=== PATIENT | male | born 1985 | race Caucasian/White ===

== ENCOUNTER 2020-07-25 18:33 | Emergency (ER) | payer MEDICARE, MEDICAID, SELFPAY ==
[2020-07-25 18:35] VITALS: BP 126/88; PULSE 68; RESP 16; TEMP 36.6; O2SAT 98; BMI 16.1
== END 2020-07-25 20:17 | disposition left against medical advice (07) ==
PROVIDERS: Emergency Provider Emergency Medicine; PCP Internal Medicine Pulmonary Disease
DX: R51.9 Headache, unspecified (principal)
CPT/HCPCS: 99282

== ENCOUNTER 2024-10-08 13:41 | Inpatient (IN) | payer MEDICARE, MEDICAID, SELFPAY ==
--- NOTE | ~2024-10-08 | US_ITS ---
CLINICAL HISTORY: RUQ tenderness US abdomen limited Comparison: None Findings: Evaluation was limited secondary to patient positioning and overlying bowel gas. The visualized pancreas is normal. The visualized IVC is unremarkable. The liver is normal in size and echotexture. There is no intrahepatic bile duct dilatation. The common duct is three mm in diameter. The gallbladder is poorly distended. There are no shadowing gallstones. The sonographic Holloway's sign was negative. The main portal vein is antegrade. The right kidney is 10.3 cm in length. No ascites. IMPRESSION: Unremarkable abdominal ultrasound. Limited evaluation. This document has been electronically signed by: Iza Rey MD on 10/08/2024 18:04:25
[2024-10-08 14:00] VITALS: BP 124/76; BP 127/71; PULSE 73; PULSE 80; RESP 19; TEMP 36.7; O2SAT 98; BMI 15.9
--- NOTE | 2024-10-08 14:27 | ED_ITS ---
HPI - General Adult General Chief complaint: Failure to Thrive Stated complaint: sec 12, not eating or drinking, no SI/HI Time Seen by Provider: 10/08/24 14:26 History of Present Illness ED Provider: Virginia JOYNER narrative: the patient is a 38-year-old male who I believe has chronic mental illness. He says he lives alone in his own apartment. He goes to the [employer] day program. Apparently staff at the day program today were concerned that the patient seemed to be losing a lot of weight and doing poorly. They ultimately called an ambulance and he was brought here for an evaluation for failure to thrive. The patient says that he has been eating less recently and has been losing weight. He says that his neighbor has lymphoma and he finds this depressing. Additionally his brother has stopped visiting him and he finds that distressing as well. He denies suicidality. He denies fever, sweats, chills. Related Data Home Medications ?Medication ?Instructions ?Recorded ?Confirmed No Known Home Meds 10/08/24 10/08/24 Allergies Allergy/AdvReac Type Severity Reaction Status Date / Time aripiprazole [From ABILIFY] Allergy Severe TONGUE Verified 10/08/24 14:03 SWELLS, NAUSEA/VOMITING olanzapine [From ZYPREXA] AdvReac Unknown INVOLUNTARY Verified 10/08/24 14:03 SPASMS From ZOLOFT AdvReac Unknown KEY Uncoded 10/08/24 14:03 Review of Systems 2 Review of Systems: Yes all other systems are reviewed and are negative PMFSH Past Medical History Medical History (Updated 10/08/24 @ 19:02 by Froylan Coleman MD) Schizoaffective disorder Bipolar 1 disorder Anxiety Social History Social History Smoked in Last 30 Days: No Use of substances other than those prescribed or required for medical reasons: No Advance Directives: No Advance Directives Information Provided: Yes Do you have a plan to hurt others: No Plan Physical Exam ED Vital Signs: Vital Signs - 24 hr 10/08/24 18:31 10/09/24 05:49 10/09/24 13:09 Temperature 97.6 F 98.3 F Pulse Rate 54 63 Respiratory Rate 14 16 18 Blood Pressure 100/53 L 126/76 Pulse Oximetry 98 99 Oxygen Delivery Method Room Air Room Air BMI result Body Mass Index 15.9 Const Other: The patient is a very thin 38-year-old male. He is awake and alert. He seems to have some degree of psychomotor retardation. He answers questions very slowly and with a slight delay. He has a flat affect. He does not seem in acute distress. HENMT Other: The patient is cheeks are sunken. However his face is symmetrical and his mucous membranes are moist. Eyes General: appearance normal, both eyes and all related structures Conjunctivae: conjunctivae normal Sclerae: sclerae normal Pupils: Equal, round and reactive pupils present EOM: EOMs intact bilaterally Neck Neck: Yes normal visual inspection, Yes full ROM and Yes no lymphadenopathy Resp Effort & Inspection: normal respiratory effort Auscultation: clear to auscultation bilaterally Cardio Rate: regular rate Rhythm: regular rhythm Heart sounds: S1 normal heart sound present and S2 normal heart sound present GI Other: Abdomen is soft and nontender Skin Other: skin is pale and dry. Neuro Other: The patient is awake and alert. He answers questions slowly but appropriately. He seems to have some psychomotor delay when speaking. cranial nerves 2-12 are intact. He moves his extremities normally and appropriately with normal strength and sensation and coordination in all of his extremities. He seems neurologically intact although he has a flat affect and some degree of delay in speaking. Cranial nerves: Yes Equal, round and reactive pupils present Extrem Other: No peripheral edema Psych Appearance: disheveled Mental Status: mental status grossly normal Speech and movement: Slowed movement present (Neuro) Affect: Blunted affect present Attitude: Guarded attititude/behavior present Course Reevaluation(s) Reevaluation #1: 10/09/2024 Dr. Caldwell 09:20 am stable overnight no event reported vital signs normal continue bed search Time: 09:21 Medications Administered Discontinued Medications Generic Name Dose Route Start Last Admin Trade Name Lowq PRN Reason Stop Dose Admin Ondansetron HCl 4 mg 10/08/24 16:21 10/08/24 16:27 Ondansetron Odt 4 Mg Tab.Unadis TRANSLINGU 10/08/24 16:22 4 mg ONCE ONE Administration Trazodone HCl 50 mg 10/08/24 19:52 10/08/24 19:55 Trazodone Hcl 50 Mg Tablet PO 10/08/24 19:53 50 mg ONCE ONE Administration Medical Decision Making Medical Decision Making [facility] Narrative: The patient is a 38-year-old male who I believe has chronic mental illness who has been eating very little recently and has lost weight. He has been seen as an outpatient by [facility] and he has been judged to be in his sufficient psychiatric crisis to warrant hospitalization. recent stressors include a neighbor who has lymphoma and the fact that his brother has not been visiting him. He acknowledges feeling depressed and is agreeable to the prospect of being hospitalized. the patient's medical workup suggest that he is mildly dehydrated but otherwise stable. The patient declined IV fluids. At this point I think that he is sufficiently medically stable that he can be placed in the psychiatric pod and await disposition by the CARE team. The patient is medically clear for psychiatric disposition. He will therefore be placed in physician observation as of 19:00 today. patient is voluntarily being admitted at this time, 18:24. Diagnosis, depression, SI Lab Data 10/08/24 14:50 10/08/24 14:50 Labs: Lab Results 10/08/24 10/09/24 Range/Units 14:50 09:25 WBC 7.9 (4.8-10.8) X10*3/uL RBC 4.26 L (4.60-5.80) X10*6/uL Hgb 13.3 L (14.0-18.0) g/dl Hct 37.7 L (42.0-52.0) % MCV 88.5 (80.0-98.0) fL MCH 31.2 (27.0-33.0) pg MCHC 35.3 (31.0-36.0) g/dl RDW 11.9 (11.0-16.0) % Plt Count 288 (160-400) X10*3/uL MPV 10.5 (9.4-12.4) fL Immature Gran % (Auto) 0.3 (0.0-0.4) % Neut % (Auto) 69.8 (45-73) % Lymph % (Auto) 18.3 L (20-40) % [place] % (Auto) 9.9 (2-11) % Eos % (Auto) 0.9 (0-4) % Baso % (Auto) 0.8 (0-2) % Lymph # (Auto) 1.4 (1.2-4.9) X10*3/uL [place] # (Auto) 0.8 (0.1-1.2) X10*3/uL Eos # (Auto) 0.1 (0.0-0.4) X10*3/uL Baso # (Auto) 0.1 (0.0-0.2) X10*3/uL Abs Immat Gran (auto) 0.02 (0.00-0.03) X10*3/uL Absolute Neuts (auto) 5.5 (2.0-8.3) x10*3/uL Absolute Nucleated RBC 0.000 (0.0-0.012) X10*3/uL Nucleated RBC % (auto) 0.0 (0.0-0.2) /100WBC Hold Purple Top SEE NOTE PT 11.7 (10.9-12.4) SEC INR 1.0 (0.9-1.1) Sodium 141 (135-145) mmol/L Potassium 4.0 (3.3-5.1) mmol/L Chloride 109 H (96-108) mmol/L Carbon Dioxide 24 (22-29) mmol/L Anion Gap 12 (12-20) BUN 22 H (9-16) mg/dL Creatinine 0.88 (0.5-1.4) mg/dL Estim Creat Clear Calc 71.9 Estimated GFR > 60 Random Glucose 89 (60-115) mg/dL Calcium 9.0 (8.4-10.2) mg/dL Magnesium 2.1 (1.6-2.6) mg/dL Total Bilirubin 0.2 (0.0-1.0) mg/dL Direct Bilirubin < 0.2 (0.0-0.5) mg/dL AST 35 (5-37) U/L ALT 25 (0-40) U/L Alkaline Phosphatase 60 (39-117) U/L Total Protein 7.0 (6.5-8.0) g/dL Albumin 4.1 (3.5-5.0) g/dL Urine Color Yellow Urine Appearance Turbid Urine pH 7.5 (5.0-9.0) Ur Specific [place] >= 1.030 H (1.005-1.025) Urine Protein 30 (1+) H (Neg-Trace) mg/dL Urine Glucose (UA) Negative (Negative) mg/dL Urine Ketones Trace (Negative) mg/dL Urine Blood Negative (Negative) Urine Nitrite Negative (Negative) Ur Leukocyte Esterase Negative (Negative) Urine RBC 0-2 (0-2) /HPF Urine WBC 0-5 (0-5) /HPF Ur Squamous Epith Cells 0-2 (0-2) /HPF Urine Bacteria None Seen (None Seen) Hyaline Casts 0-2 (0-2) /LPF Urine Opiates Screen Not Detected (Not Detect) Ur Buprenorphine Scrn Not Detected (Not Detect) ng/mL Ur Oxycodone Screen Not Detected (Not Detect) ng/mL Urine Methadone Screen Not Detected (Not Detect) ng/mL Urine Fentanyl Screen Not Detected (Not Detect) Ur Barbiturates Screen Not Detected (Not Detect) Ur Phencyclidine Scrn Not Detected (Not Detect) Ur Amphetamines Screen Not Detected (Not Detect) U Benzodiazepines Scrn Not Detected (Not Detect) Urine Cocaine Screen Not Detected (Not Detect) U Marijuana (THC) Screen Not Detected (Not Detect) Ethyl Alcohol < 10 mg/dL COVID-19 (KAITLYN) Negative (Negative) COVID-19 Clin Com See Note Discharge Plan Discharge Clinical Impression: Depression, Weight loss Patient Disposition: Admitted As Inpatient Prescriptions: No Action No Known Home Meds Print Language: Turkish
[2024-10-08 14:59] LABS: Appearance Urine Turbid; Color Urine Yellow; Glucose Urine UA Negative (Negative); Leukocyte Esterase Urine Negative (Negative); Nitrite Urine Negative (Negative); PH 7.5 (5.0-9.0); Specific Gravity - Urine >= 1.030 (1.005-1.025); UMIC TRIGGER UACC YES; Urine Blood Negative (Negative); Urine Ketones Trace mg/dL (Negative); Urine Protein 30 (1+) mg/dL (Neg-Trace)
[2024-10-08 15:02] LABS: Bacteria Urine None Seen (None Seen); Hyaline Casts Urine 0-2 /LPF (0-2); RBC Urine 0-2 /HPF (0-2); Squamous Epithelial Cell Urine 0-2 /HPF (0-2); WBC Urine 0-5 /HPF (0-5)
[2024-10-08 15:08] LABS: Amphetamine Screen Urine Not Detected (Not Detect); Barbiturates, Urine Not Detected (Not Detect); Benzodiazepines Screen Urine Not Detected (Not Detect); Buprenorphine Scr Not Detected (Not Detect); Cannabinoid Screen Urine Not Detected (Not Detect); Cocaine Screen Urine Not Detected (Not Detect); Fentanyl, urine Not Detected (Not Detect); Methadone Screen, Urine Not Detected (Not Detect); Opiate Screen Urine Not Detected (Not Detect); Oxycodone Screen Urine Not Detected (Not Detect); Phencyclidine Screen Urine Not Detected (Not Detect)
[2024-10-08 15:18] LABS: Alanine Aminotransferase 25 U/L (0-40); Albumin Level 4.1 g/dL (3.5-5.0); Anion Gap 12 (12-20); Aspartate Amino Transferase 35 U/L (5-37); Bilirubin Direct < 0.2 mg/dL (0.0-0.5); Bilirubin Total 0.2 mg/dL (0.0-1.0); Blood Urea Nitrogen 22 mg/dL (9-16); Carbon Dioxide 24 mmol/L (22-29); Chloride 109 mmol/L (96-108); Creatinine Clr Calc Pharmacy 71.9; Estimated Glomerular Filt Rate > 60; Ethanol < 10 mg/dL; Glucose Random 89 mg/dL (60-115); Magnesium 2.1 mg/dL (1.6-2.6); Sodium 141 mmol/L (135-145)
--- NOTE | 2024-10-08 16:00 | PC.NURSE ---
Pt refused IV. MD Galeano made aware. Pt states he will drink oral fluids to rehydrate. Pt takes sips of fluid/eats and then spits it out. MD Galeano at bedside- pt in agreement with IV fluids.
--- NOTE | 2024-10-08 16:10 | PC.NURSE ---
Pt originally in agreement with IV fluids. Attempted to obtain IV access and pt became anxious/grabbing at IV supplies. Pt unable to be redirected, stating he refuses the IV. MD Galeano aware and at bedside.
[2024-10-08 16:14] LABS: Alkaline Phosphatase 60 U/L (39-117)
[2024-10-08] MEDS: Ondansetron ODT 4 MG TAB.RAPDIS TRANSLINGU (16:27)
[2024-10-08 16:49] LABS: MANUAL DIFF FLAG NO
[2024-10-08 16:54] LABS: Basophils Absolute Auto 0.1 X10*3/uL (0.0-0.2); Basophils Percent Auto 0.8 % (0-2); Eosinophils Absolute Auto 0.1 X10*3/uL (0.0-0.4); Eosinophils Percent Auto 0.9 % (0-4); Hematocrit 37.7 % (42.0-52.0); Hemoglobin 13.3 g/dl (14.0-18.0); Imm Gran Abs Auto 0.02 X10*3/uL (0.00-0.03); Imm Gran Pct Auto 0.3 % (0.0-0.4); Lymphocytes Absolute Auto 1.4 X10*3/uL (1.2-4.9); Lymphocytes Percent Auto 18.3 % (20-40); Mean Corpuscular HGB Conc 35.3 g/dl (31.0-36.0); Mean Corpuscular Hemoglobin 31.2 pg (27.0-33.0); Mean Corpuscular Volume 88.5 fL (80.0-98.0); Mean Platelet Volume 10.5 fL (9.4-12.4); Monocytes Absolute Auto 0.8 X10*3/uL (0.1-1.2); Monocytes Percent Auto 9.9 % (2-11); Neutrophils Absolute Auto 5.5 x10*3/uL (2.0-8.3); Neutrophils Percent Auto 69.8 % (45-73); Platelet Count 288 X10*3/uL (160-400); Red Blood Count 4.26 X10*6/uL (4.60-5.80); Red Cell Distribution Width 11.9 % (11.0-16.0); White Blood Count 7.9 X10*3/uL (4.8-10.8)
--- NOTE | 2024-10-08 17:38 | PC.NURSE ---
Pt biba from home for failure to thrive, section 12 . Per pt, he has had poor PO intake x1 month and has lost approx 30 pounds. Pt a/ox3, calm/cooperative with staff and change management manager with security at bedside. Pt appears pale, skin cool to touch, bilateral cuts on top of wrists/hands. Pt slow to respond to questions, not answering questions fully- answers with one word answers. Respirations even and unlabored, no increased wob/sob noted, maintaining O2 sat >92%, denies cp/palpitations. Denies SI/HI/AH/VH. 1:1 sitter at bedside, resting in bed quietly, call gregory within reach.
[2024-10-08 18:03] VITALS: O2SAT 98
[2024-10-08 18:31] VITALS: RESP 14
--- NOTE | 2024-10-08 18:31 | PC.NURSE ---
RE; MED REC patient reports to this RN that he DOES NOT take any medications regularly
[2024-10-08] MEDS: traZODone HCL 50 MG TABLET PO (19:55)
--- NOTE | 2024-10-08 20:00 | PC.NURSE ---
PT acting bizarre and paranoid. Requesting drinks but then immediately dumping it out, taking hospital gown off stating my roommate has cancer so I cant wear this , pt also taking multiple trips to the bathroom and flushing several of times. Provider notified. Medications administered as per JUL. Plan of care ongoing
--- NOTE | 2024-10-08 23:57 | MHC.CARE ---
Joie from [facility] contacted the Care Team and reported that pt was evaluated in the community and found appropriate for IPLOC. She indicated that [facility] is [facility] and [facility] Ramon was sent and a copy was placed in his chart.
--- NOTE | 2024-10-09 | ECG_ITS ---
Test Reason : R/O PROLONGED QT Blood Pressure : */* mmHG Vent. Rate : 54 BPM Atrial Rate : 54 BPM P-R Int : 134 ms QRS Dur : 90 ms QT Int : 420 ms P-R-T Axes : 72 80 41 degrees QTcB Int : 398 ms Sinus bradycardia Otherwise normal ECG When compared with ECG of 18-Sep-2019 04:03, No significant change was found Referred By: Froylan Coleman Electronically Signed By: ALAN CLEMENTS MD
[2024-10-09 05:49] VITALS: BP 100/53; PULSE 54; RESP 16; TEMP 36.4; O2SAT 98
--- NOTE | 2024-10-09 06:28 | PC.NURSE ---
Patient was up whole night, no distress observed/reported, 15 minutes safety check, no behavior and safety concerns, disposition per care team is section 12 inpatient bed search, will continue to monitor
--- NOTE | 2024-10-09 07:43 | PC.NURSE ---
Assumed care of patient at 0645, patient appears to be in no apparent distress this am, wandering around BH pod, offering no complaints to this RN. Patient appears to be confused at times, unable to identify where he is or what he is doing. pt resting on chair in 7 at this time. Continue plan of care for IPLOC
[2024-10-09 09:39] LABS: Prothrombin Time 11.7 SEC (10.9-12.4)
[2024-10-09 09:45] LABS: IDNOW Serial# 58CA691E
[2024-10-09 09:46] LABS: COVID-19 Test Negative (Negative)
--- NOTE | 2024-10-09 09:46 | MHC.EDTECH ---
This tech provided toiletries/clothes/towels. Patient ambulated with steady gate to bathroom for a shower. All current needs met.
--- NOTE | 2024-10-09 12:02 | PHA.MEDREC ---
Addendum entered by Mahesh Velez [facility] 10/09/24 13:21: MED REC CHECKED BY [facility] Original Note: Pharmacy Consult ? Medication Reconciliation Pharmacy reviewed med rec done but nursing. No Known Home Meds confirmed by nursing. Spoke with patient nurse in pod and she confirmed the patient told her he is not taking any medications at this time.
--- NOTE | 2024-10-09 12:56 | PC.NURSE ---
Pt picking at food on tray, pt did drink half of an Ensure drink this am. Currently eating bits and pieces of lunch
--- NOTE | 2024-10-09 13:02 | PC.NURSE ---
Patient ate 50% of lunch and drank two cups of gingerale as well as a few crackers
[2024-10-09 13:09] VITALS: BP 126/76; PULSE 63; RESP 18; TEMP 36.8; O2SAT 99
[2024-10-09] MEDS: hydrOXYzine HCL 25 MG TABLET PO (18:37)
--- NOTE | 2024-10-09 19:21 | PC.NURSE ---
upon arrival patient seems very disorganized, under dressed or naked and refusing q 5 minute redirets for him to keep clothes on.
--- NOTE | 2024-10-09 19:30 | PC.NURSE ---
reached out to admissions to notify them clients dc orders are missing elements. continuing to redirect client about wearing clothing in milieu.
[2024-10-09 23:22] VITALS: BP 118/77; PULSE 63; RESP 16; TEMP 36.7; O2SAT 96
[2024-10-10 00:33] VITALS: BMI 17.0
--- NOTE | 2024-10-10 00:39 | PC.ADMIT ---
Pt is a 38 yo male admitted to unit from ED POD assessed by the CARE Team. Arrived on unit at 2205 on 10/09/2024. Pt signed a CV. Pt denies etoh, tobacco use or substance use, utox is negative. Pt denies any hx or current medical issues. Pt was presenting with increasingly paranoid behaviors while attending his day program at [facility] yesterday. Pt was then extremely anxious, shaking and agitated, then hid in bathroom for most of day with lights off. Pt has [facility] services, they report pt has been medication non compliant for the last month and that he has lost 30 pounds d/t not eating r/t paranoia. Pt has been throwing out food believing its been poisoned. Per crisis eval, pt's brother reports pt's neighbors have stated pt is up all night screaming, yelling, hitting post and self-dialoguing. Per crisis eval, pt also had been agitated and verbally aggressive to neighbor who has cancer and believes the neighbors cancer will spread to him. Pt presents as emaciated and disheveled, dressed in hospital attire. Pt frequently disrobing his raciel top and redirected to stay dressed. Pt is disorganized and appears to be thought blocking and responding to internal stimuli. Pt will eat and then run in the bathroom, coughing. Pt asks several times to wash his hands and when redirected to use his bathroom, he asks, there is no where else can I wash my hands ? Provider aerospace control and warning systems, CAW notified of arrival and orders obtained. Placed on 15 minute safety checks. Pt reports he feels safe in hospital.
[2024-10-10] MEDS: LORazepam 1 MG TABLET PO (13:14)
[2024-10-10] MEDS: hydrOXYzine HCL 25 MG TABLET PO (13:46)
--- NOTE | 2024-10-10 13:47 | P.HPPS_ITS ---
HPI Date of Service: 10/10/24 Chief Complaint: Depression/ Failure to Thrive Sources of Information: patient interviewed, chart reviewed and crisis/core team assessment reviewed HPI Subjective Notes: [place] Warning and Conditional Voluntary Narrative: Patient is a 38-year-old male with history of schizoaffective d/o who presented [place] [facility] [place] d/t paranoid behaviors secondary to medication non-compliance. Per crisis report, patient was assessed by [facility] crisis due to presenting with paranoid behaviors at his day program. Patient was anxious, shaking and hiding in the bathroom with the lights off for most of the day. Patient has been noncompliant with his prescribed medications for almost a month and has been refusing and throwing out food for a month due to his paranoid delusions. Patient's brother reports that he has lost approximately 30lb in the last month. Patient has been verbally aggressive towards 1 neighbor and throwing toilet paper at the neighbor's door as the neighbors diagnosed with cancer and patient believes the neighbor will spread the cancer to him. denies SI/HI; He also denies experiencing any auditory or visual hallucinations. Patient's brother reports he stopped taking his medications about a month ago after losing his job. utox negative. During admission assessment, patient presents alert and oriented x3. Anxious but cooperative. Fidgeting in chair. Standing up multiple times to look outside of unit office door. Paranoid. Patient stated, [facility] came to my house. I don't know why they came. I'm not really taking my meds but I'll take them here. I had to throw them away because my whole apartment is dirty so I wasn't eating . Patient reports he is worried about getting cancer from his neighbor . Patient was observed continuously removing and putting back on surgical facemask during the interview. Patient reports he would like to be restarted on his medications. denies SI/HI/VH/AH. Past Psychiatric History: Psychiatrist through the [facility]. [facility] actuarial intern: Joel Castillo Day program: [facility] hx of meds: clozapine, risperidal, trazodone Medical Evaluation Reviewed: Yes [facility] Medical History (Updated 10/10/24 @ 16:07 by Devi Bates NP) Schizoaffective disorder Bipolar 1 disorder Anxiety Family History: Unknown Social History: Lives alone in an apartment. Single. No kids. Unemployed. Substance History: Denies any substance use. Utox negative. Trauma History: Unknown Diagnostics Vital Signs (24Hr): Vital Signs - 24 hr 10/09/24 23:22 Temperature 98.0 F Pulse Rate 63 Respiratory Rate 16 Blood Pressure 118/77 Pulse Oximetry 96 Oxygen Delivery Method Room Air BMI result Body Mass Index 17.0 Labs 10/08/24 14:50 10/08/24 14:50 Labs: Laboratory Results - last 48 hr 10/08/24 10/09/24 14:50 09:25 WBC 7.9 RBC 4.26 L Hgb 13.3 L Hct 37.7 L MCV 88.5 MCH 31.2 MCHC 35.3 RDW 11.9 Plt Count 288 MPV 10.5 Immature Gran % (Auto) 0.3 Neut % (Auto) 69.8 Lymph % (Auto) 18.3 L [place] % (Auto) 9.9 Eos % (Auto) 0.9 Baso % (Auto) 0.8 Lymph # (Auto) 1.4 [place] # (Auto) 0.8 Eos # (Auto) 0.1 Baso # (Auto) 0.1 Abs Immat Gran (auto) 0.02 Absolute Neuts (auto) 5.5 Absolute Nucleated RBC 0.000 Nucleated RBC % (auto) 0.0 Hold Purple Top SEE NOTE PT 11.7 INR 1.0 Sodium 141 Potassium 4.0 Chloride 109 H Carbon Dioxide 24 Anion Gap 12 BUN 22 H Creatinine 0.88 Estim Creat Clear Calc 71.9 Estimated GFR > 60 Random Glucose 89 Calcium 9.0 Magnesium 2.1 Total Bilirubin 0.2 Direct Bilirubin < 0.2 AST 35 ALT 25 Alkaline Phosphatase 60 Total Protein 7.0 Albumin 4.1 Urine Color Yellow Urine Appearance Turbid Urine pH 7.5 Ur Specific [place] >= 1.030 H Urine Protein 30 (1+) H Urine Glucose (UA) Negative Urine Ketones Trace Urine Blood Negative Urine Nitrite Negative Ur Leukocyte Esterase Negative Urine RBC 0-2 Urine WBC 0-5 Ur Squamous Epith Cells 0-2 Urine Bacteria None Seen Hyaline Casts 0-2 Urine Opiates Screen Not Detected Ur Buprenorphine Scrn Not Detected Ur Oxycodone Screen Not Detected Urine Methadone Screen Not Detected Urine Fentanyl Screen Not Detected Ur Barbiturates Screen Not Detected Ur Phencyclidine Scrn Not Detected Ur Amphetamines Screen Not Detected U Benzodiazepines Scrn Not Detected Urine Cocaine Screen Not Detected U Marijuana (THC) Screen Not Detected Ethyl Alcohol < 10 COVID-19 (KAITLYN) Negative COVID-19 Clin Com See Note Meds/Allergies Meds Home Medications ?Medication ?Instructions ?Recorded ?Confirmed ?Type B12 500 mcg PO DAILY 10/10/24 10/10/24 History gabapentin 100 mg capsule 100 mg PO DAILY PRN Anxiety 10/10/24 10/10/24 History hydroxyzine HCl 50 mg tablet 50 mg PO BEDTIME PRN Insomnia 10/10/24 10/10/24 History risperidone 4 mg tablet 4 mg PO DAILY 10/10/24 10/10/24 History thiamine HCl (vitamin B1) 100 mg 100 mg PO DAILY 10/10/24 10/10/24 History tablet Allergies Allergies Allergy/AdvReac Type Severity Reaction Status Date / Time aripiprazole [From ABILIFY] Allergy Severe TONGUE Verified 10/08/24 14:03 SWELLS, NAUSEA/VOMITING olanzapine [From ZYPREXA] AdvReac Unknown INVOLUNTARY Verified 10/08/24 14:03 SPASMS From ZOLOFT AdvReac Unknown KEY Uncoded 10/08/24 14:03 Mental Status Exam Mental Status Exam Patient Appearance: Disheveled Patient Orientation: Person, Place, Time and Situation Level of Consciousness: Awake and Alert Patient Behavior: Guarded, Cooperative, Restless and Anxious Mood Description: Anxious Affect Description: Anxious Ability to Follow Directions: Good Speech Pattern: Clear and Appropriate Hallucinations: None Delusions: Paranoid Ideation Thought Process: Goal Oriented Thought Content: positive for Goal Oriented Assessment & Plan Assessment & Plan (1) Schizoaffective disorder: Status: Acute Code(s): F25.9 - Schizoaffective disorder, unspecified Plan Patient is a 38-year-old male with history of schizophrenia who presented [place] [facility] [place] d/t paranoid behaviors secondary to medication non-compliance. Plan: CV 15 minute safety checks Continues home medications Restart clozapine 25mg PO daily with plan to increase obtain collateral dietitian consult encourage groups discharge planning Patient educated on: diagnosis and medication risk/benefits Reason for continued inpatient stay Substantial Risk for: med/psych decompensation Statement Statement: I have reviewed the history and physical and performed a pertinent examination on my patient. No changes have occurred unless specified. If the History and Physical was not performed prior to admission, the Hospitalist's service will be consulted for completing the admission physical. Time Spent With Patient Time: Total time managing care of this patient today _60___ minutes.
--- NOTE | 2024-10-10 15:07 | MHC.CLN ---
NUTRITION CONSULT FOR POOR PO AND WEIGHT LOSS. VISITED PATIENT IN ROOM. DID NOT EAT BREAKFAST OR LUNCH TODAY. REPORTED THAT HAD NOT BEEN EATING OR DRINKING MUCH PRIOR TO ADM AND HAS LOST WEIGHT. APPEARS MALNOURISHED WITH DEPLETION OF MUSCLE MASS NOTED IN TEMPLES AND CLAVICLE; DEPLETION OF BODY FAT NOTED IN RIBCAGE. REPORTED THAT HE RAN OUT OF FOOD AT HOME. ADVISED TO TRY TO EAT/DRINK SMALL AMOUNT AND BUILD UP APPETITE. WILLING TO TRY ENSURE TID. SUPPLEMENT PROVIDES 1050 KCALS, 60 G PROTEIN. ENCOURAGE INTAKE AT MEALS AND SNACKS ABLE.
[2024-10-10] MEDS: Thiamine HCL 100 MG TABLET PO (15:53)
[2024-10-10] MEDS: risperiDONE 2 MG TABLET 4 MG PO (15:53)
[2024-10-10 16:58] LABS: Ammonia 37 umol/L (13-55)
[2024-10-10 17:06] LABS: Anion Gap 12 (12-20); Blood Urea Nitrogen 25 mg/dL (9-16); Calcium 9.1 mg/dL (8.4-10.2); Carbon Dioxide 29 mmol/L (22-29); Chloride 101 mmol/L (96-108); Creatinine Clr Calc Pharmacy 93.8; Estimated Glomerular Filt Rate > 60; Glucose Random 81 mg/dL (60-115); Potassium 4.3 mmol/L (3.3-5.1); Sodium 138 mmol/L (135-145)
[2024-10-10 17:14] LABS: Cholesterol 161 mg/dL (<200); HDL Cholesterol 73 mg/dL (>40); LDL Cholesterol Calculated 46 mg/dL (<100); Magnesium 2.1 mg/dL (1.6-2.6); Triglycerides 214 mg/dL (<150)
[2024-10-10 17:29] LABS: Free T4 (Free Thyroxine) 0.82 ng/dL (0.71-1.85); Thyroid Stimulating Hormone 2.55 uIU/mL (0.32-4.0)
[2024-10-10 17:42] LABS: Folate 10.6 ng/mL (> or = 4.0); Vitamin B12 556 pg/mL (200-900)
[2024-10-10 20:00] VITALS: RESP 16
[2024-10-10] MEDS: cloZAPine 25 MG TABLET PO (20:55)
--- NOTE | 2024-10-11 07:25 | HO.PSYCHPN ---
Subjective Subjective Date of Service: 10/11/24 Reason For Visit: Depression/ Failure to Thrive Subjective Notes: Conditional Voluntary Interim History: Met with patient. Discussed with Nursing. Slept 8 hours. Bizarre behavior around food. Accepting clozapine. Declining 2nd Ativan dose. With handbook writer reports that he feels fine. Main concern is housing. Declined labs but reports he will get them in the morning. There is disorganized behavior around food for example opening as putting as on top of the trash can coming back later taking it away eating some then putting it back on the trash can. Medication Compliance: Intermittent Side effects from medications: No Attending Groups: No Review of Systems Acute medical concerns: No Review of Systems Review of Systems Unremarkable Mental Status Exam Mental Status Exam Patient Appearance: Disheveled Patient Orientation: Person, Place, Time and Situation Level of Consciousness: Awake and Alert Patient Behavior: Guarded, Cooperative, Restless, Anxious and Confused ( unusual behavior around food) Mood Description: Anxious Affect Description: Anxious Ability to Follow Directions: Good Speech Pattern: Clear and Appropriate Hallucinations: None Delusions: Paranoid Ideation Thought Process: Goal Oriented Thought Content: positive for Goal Oriented Diagnostics Vital Signs (24Hr): Vital Signs - 24 hr 10/10/24 20:00 Respiratory Rate 16 BMI result Body Mass Index 17.0 Labs 10/08/24 14:50 10/10/24 16:49 Labs: Laboratory Results - last 48 hr 10/09/24 10/10/24 09:25 16:49 PT 11.7 INR 1.0 Sodium 138 Potassium 4.3 Chloride 101 Carbon Dioxide 29 Anion Gap 12 BUN 25 H Creatinine 0.72 Estim Creat Clear Calc 93.8 Estimated GFR > 60 Random Glucose 81 Calcium 9.1 Magnesium 2.1 Ammonia 37 Triglycerides 214 H Cholesterol 161 LDL Cholesterol, Calc 46 HDL Cholesterol 73 Vitamin B12 556 Folate 10.6 TSH 2.55 Free T4 0.82 COVID-19 ([facility]) Negative COVID-19 Clin Com See Note Medications Medications Current Medications Acetaminophen (Acetaminophen 325 Mg Tablet) 650 mg PO Q6H PRN PRN Reason: Headache/Pain, Scale 1-10 Al Hydroxide/Mg Hydroxide (Magnesium Hydrox/Alum Hydrox 30 Ml Oral.Susp) 30 ml PO Q6H PRN PRN Reason: Heartburn/Nausea Chlorpromazine HCl (Chlorpromazine Hcl 25 Mg Tablet) 25 mg PO Q6H PRN PRN Reason: agitation Clozapine (Clozapine 25 Mg Tablet) 25 mg PO BEDTIME [facility] Last Admin: 10/10/24 20:55 Dose: 25 mg Cyanocobalamin (Cyanocobalamin (Vitamin B-12) 500 Mcg Tablet) 500 mcg PO DAILY [facility] Gabapentin (Gabapentin 100 Mg Capsule) 100 mg PO DAILY PRN PRN Reason: Anxiety Hydroxyzine HCl (Hydroxyzine Hcl 25 Mg Tablet) 25 mg PO Q6H PRN PRN Reason: mild anxiety Last Admin: 10/10/24 13:46 Dose: 25 mg Lorazepam (Lorazepam 1 Mg Tablet) 1 mg PO BID [facility] Last Admin: 10/10/24 21:01 Dose: Not Given Magnesium Hydroxide (Milk Of Magnesia 30 Ml Oral.Susp) 30 ml PO DAILY PRN PRN Reason: Constipation Multi-Ingred Cream/Lotion/Oil/Oint (Mineral Oil/Petrolatum,White 106 Gm Tube) 1 appl TOPICAL BID [facility]; Protocol Last Admin: 10/10/24 21:02 Dose: Not Given Nicotine Polacrilex (Nicotine Polacrilex 2 Mg Gum) 4 mg BUCCAL Q2H PRN PRN Reason: Nicotine Cravings Risperidone (Risperidone 2 Mg Tablet) 4 mg PO DAILY [facility] Last Admin: 10/10/24 15:53 Dose: 4 mg Thiamine HCl (Thiamine Hcl 100 Mg Tablet) 100 mg PO DAILY [facility] Last Admin: 10/10/24 15:53 Dose: 100 mg Trazodone HCl (Trazodone Hcl 50 Mg Tablet) 50 mg PO BEDTIME MRX1 PRN PRN Reason: Insomnia Allergies Allergies Allergy/AdvReac Type Severity Reaction Status Date / Time aripiprazole [From ABILIFY] Allergy Severe TONGUE Verified 10/08/24 14:03 SWELLS, NAUSEA/VOMITING olanzapine [From ZYPREXA] AdvReac Unknown INVOLUNTARY Verified 10/08/24 14:03 SPASMS From ZOLOFT AdvReac Unknown KEY Uncoded 10/08/24 14:03 Assessment & Plan Assessment & Plan (1) Schizoaffective disorder: Status: Acute Code(s): F25.9 - Schizoaffective disorder, unspecified Plan Patient is a 38-year-old male with history of schizophrenia who presented to [facility] [place] d/t paranoid behaviors secondary to medication non-compliance. Plan: CV 15 minute safety checks Continues home medications Restart clozapine 25mg PO daily with plan to increase obtain collateral dietitian consult encourage groups discharge planning 10/11/2024: No changes to current treatment plan. clozapine just restarted yesterday. Titrate clozapine as tolerated. Reports he will get lab work done tomorrow Reason for continued inpatient stay Substantial Risk for: inability to function Time Spent With Patient Time: Total time managing care of this patient today ____ minutes.
[2024-10-11 08:00] VITALS: BP 127/74; PULSE 60; TEMP 36.9; O2SAT 99
[2024-10-11] MEDS: Thiamine HCL 100 MG TABLET PO (09:37)
[2024-10-11] MEDS: Cyanocobalamin (Vitamin B-12) 500 MCG TABLET PO (09:37)
[2024-10-11] MEDS: risperiDONE 2 MG TABLET 4 MG PO (09:37)
[2024-10-11] MEDS: Mineral Oil/Petrolatum,White 106 GM Tube 1 APPL TOPICAL (10:04)
[2024-10-11] MEDS: Gabapentin 100 MG CAPSULE PO (18:38)
[2024-10-11 20:00] VITALS: BP 129/70; PULSE 82; RESP 14; TEMP 37.1; O2SAT 98
[2024-10-11] MEDS: cloZAPine 25 MG TABLET PO (21:05)
[2024-10-11] MEDS: LORazepam 1 MG TABLET PO (21:05)
[2024-10-12 07:40] VITALS: BP 115/76; PULSE 107; RESP 14; TEMP 36.4; O2SAT 93
[2024-10-12] MEDS: Thiamine HCL 100 MG TABLET PO (08:44)
[2024-10-12] MEDS: Mineral Oil/Petrolatum,White 106 GM Tube 1 APPL TOPICAL ×2 (08:47→22:05)
[2024-10-12] MEDS: risperiDONE 2 MG TABLET 4 MG PO (08:47)
[2024-10-12] MEDS: LORazepam 1 MG TABLET PO ×2 (08:51→21:19)
[2024-10-12] MEDS: Cyanocobalamin (Vitamin B-12) 500 MCG TABLET PO (08:51)
--- NOTE | 2024-10-12 13:23 | P.PNPSI_ITS ---
Subjective Subjective Date of Service: 10/12/24 Reason For Visit: Depression/ Failure to Thrive Subjective Notes: Conditional Voluntary Interim History: NOted to be removing a pill from his mouth yesterday. RN found part of a white tablet in the trash. Unclear if it was clozapine or ativan. Eating poorly per staff. Patient states he is eating OK and denies GI symptoms. Sleeping OK. Medication Compliance: Intermittent Side effects from medications: No Attending Groups: No Review of Systems Acute medical concerns: No Medical Review of Systems: unchanged Mental Status Exam Mental Status Exam Patient Appearance: Unkempt Level of Consciousness: Alert Patient Behavior: Appropriate Mood Description: Apathetic Affect Description: Constricted Patient Cognition Impaired: No Ability to Follow Directions: Fair Speech Pattern: Slurred Memory Description: Intact Hallucinations: None Delusions: Paranoid Ideation Thought Process: Slowed Thinking Thought Content: positive for Linear Depressive Symptoms: Increased Fatigue Judgement: Poor Diagnostics Vital Signs (24Hr): Vital Signs - 24 hr 10/11/24 20:00 10/12/24 07:40 Temperature 98.7 F 97.6 F Pulse Rate 82 107 H Respiratory Rate 14 14 Blood Pressure 129/70 115/76 Pulse Oximetry 98 93 Oxygen Delivery Method Room Air Room Air BMI result Body Mass Index 17.0 Labs 10/08/24 14:50 10/10/24 16:49 Labs: Laboratory Results - last 48 hr 10/10/24 16:49 Sodium 138 Potassium 4.3 Chloride 101 Carbon Dioxide 29 Anion Gap 12 BUN 25 H Creatinine 0.72 Estim Creat Clear Calc 93.8 Estimated GFR > 60 Random Glucose 81 Calcium 9.1 Magnesium 2.1 Ammonia 37 Triglycerides 214 H Cholesterol 161 LDL Cholesterol, Calc 46 HDL Cholesterol 73 Vitamin B12 556 Folate 10.6 TSH 2.55 Free T4 0.82 Medications Medications Current Medications Acetaminophen (Acetaminophen 325 Mg Tablet) 650 mg PO Q6H PRN PRN Reason: Headache/Pain, Scale 1-10 Al Hydroxide/Mg Hydroxide (Magnesium Hydrox/Alum Hydrox 30 Ml Oral.Susp) 30 ml PO Q6H PRN PRN Reason: Heartburn/Nausea Chlorpromazine HCl (Chlorpromazine Hcl 25 Mg Tablet) 25 mg PO Q6H PRN PRN Reason: agitation Clozapine (Clozapine 25 Mg Tablet) 25 mg PO BEDTIME [facility] Last Admin: 10/11/24 21:05 Dose: 25 mg Cyanocobalamin (Cyanocobalamin (Vitamin B-12) 500 Mcg Tablet) 500 mcg PO DAILY [facility] Last Admin: 10/12/24 08:51 Dose: 500 mcg Gabapentin (Gabapentin 100 Mg Capsule) 100 mg PO DAILY PRN PRN Reason: Anxiety Last Admin: 10/11/24 18:38 Dose: 100 mg Hydroxyzine HCl (Hydroxyzine Hcl 25 Mg Tablet) 25 mg PO Q6H PRN PRN Reason: mild anxiety Last Admin: 10/10/24 13:46 Dose: 25 mg Lorazepam (Lorazepam 1 Mg Tablet) 1 mg PO BID [facility] Last Admin: 10/12/24 08:51 Dose: 1 mg Magnesium Hydroxide (Milk Of Magnesia 30 Ml Oral.Susp) 30 ml PO DAILY PRN PRN Reason: Constipation Multi-Ingred Cream/Lotion/Oil/Oint (Mineral Oil/Petrolatum,White 106 Gm Tube) 1 appl TOPICAL BID [facility]; Protocol Last Admin: 10/12/24 08:47 Dose: 1 appl Nicotine Polacrilex (Nicotine Polacrilex 2 Mg Gum) 4 mg BUCCAL Q2H PRN PRN Reason: Nicotine Cravings Risperidone (Risperidone 2 Mg Tablet) 4 mg PO DAILY [facility] Last Admin: 10/12/24 08:47 Dose: 4 mg Thiamine HCl (Thiamine Hcl 100 Mg Tablet) 100 mg PO DAILY [facility] Last Admin: 10/12/24 08:44 Dose: 100 mg Trazodone HCl (Trazodone Hcl 50 Mg Tablet) 50 mg PO BEDTIME MRX1 PRN PRN Reason: Insomnia Allergies Allergies Allergy/AdvReac Type Severity Reaction Status Date / Time aripiprazole [From ABILIFY] Allergy Severe TONGUE Verified 10/08/24 14:03 SWELLS, NAUSEA/VOMITING olanzapine [From ZYPREXA] AdvReac Unknown INVOLUNTARY Verified 10/08/24 14:03 SPASMS From [facility]OLOFT AdvReac Unknown KEY Uncoded 10/08/24 14:03 Assessment & Plan Assessment & Plan (1) Schizoaffective disorder: Status: Acute Code(s): F25.9 - Schizoaffective disorder, unspecified Plan Patient is a 38-year-old male with history of schizophrenia who [place] [facility] [place]t paranoid behaviors secondary to medication non-compliance. Plan: CV 15 minute safety checks Continues home medications Restart clozapine 25mg PO daily with plan to increase obtain collateral dietitian consult encourage groups discharge planning 10/11/2024: No changes to current treatment plan. clozapine just restarted yesterday. Titrate clozapine as tolerated. Reports he will get lab work done tomorrow 10/12/24:Clozapine just started, check for cheeking Reason for continued inpatient stay Substantial Risk for: inability to function Time Spent With Patient Time: Total time managing care of this patient today ____ minutes.
[2024-10-12] MEDS: hydrOXYzine HCL 25 MG TABLET PO (13:59)
[2024-10-12] MEDS: Gabapentin 100 MG CAPSULE PO (18:32)
[2024-10-12] MEDS: cloZAPine 25 MG TABLET PO (21:19)
[2024-10-12 21:30] VITALS: BP 117/67; PULSE 103; RESP 18; TEMP 37.1; O2SAT 96
[2024-10-13 08:30] VITALS: BP 114/72; PULSE 98; RESP 16; TEMP 36.8; O2SAT 97
[2024-10-13] MEDS: LORazepam 1 MG TABLET PO ×2 (08:32→20:49)
[2024-10-13] MEDS: Thiamine HCL 100 MG TABLET PO (08:33)
[2024-10-13] MEDS: risperiDONE 2 MG TABLET 4 MG PO (08:33)
[2024-10-13] MEDS: Cyanocobalamin (Vitamin B-12) 500 MCG TABLET PO (08:33)
[2024-10-13] MEDS: Mineral Oil/Petrolatum,White 106 GM Tube 1 APPL TOPICAL ×2 (08:38→20:50)
--- NOTE | 2024-10-13 12:17 | P.PNPSI_ITS ---
Subjective Subjective Date of Service: 10/13/24 Reason For Visit: Depression/ Failure to Thrive Interim History: Pt willing to meet. Wears a face mask throughout our meeting. Team is doing mouth checks with meds and pt reports feeling supported by this. Tolerating Clozaril. Asks several questions regarding housing. Asks to go to respite. In further discussion pt talked of issues at his home, my neighbor has lymphoma and this is making me sick . So I can't be at home, it is dangerous Pt reports awareness that this is not contagious, however, I know I will get it if I stay there. Reports some SE from meds over the weekend- yawning , feeling sedate at times. Team notes some motor restlessness. Denies current SE. Denies SI,HI, AH,VH. Medication Compliance: Yes Side effects from medications: No Attending Groups: No Review of Systems Acute medical concerns: No Medical Review of Systems: unchanged Review of Systems Review of Systems Believes he will develop cancer if he goes home as neighbor has cancer Mental Status Exam Mental Status Exam Patient Appearance: Fatigued Patient Orientation: Person, Place and Situation Level of Consciousness: Alert Patient Behavior: Talkative and Good Eye Contact Mood Description: Withdrawn and Constricted Affect Description: Withdrawn and Constricted Patient Cognition Impaired: No Ability to Follow Directions: Good Speech Pattern: Spontaneous Speech Memory Description: Episodic Impaired Hallucinations: None Delusions: Paranoid Ideation and Present Thought Process: Distracted and Rumination Thought Content: positive for Circumstantial, positive for Perseveration, positive for Suicidal Ideation (denies) and positive for Homicidal Ideation (denies) Depressive Symptoms: Increased Anxiety and Difficulty Concentrating Judgement: Poor Diagnostics Vital Signs (24Hr): Vital Signs - 24 hr 10/12/24 21:30 10/13/24 08:30 Temperature 98.7 F 98.2 F Pulse Rate 103 H 98 Respiratory Rate 18 16 Blood Pressure 117/67 114/72 Pulse Oximetry 96 97 Oxygen Delivery Method Room Air Room Air BMI result Body Mass Index 17.0 Labs 10/08/24 14:50 10/10/24 16:49 Medications Medications Current Medications Acetaminophen (Acetaminophen 325 Mg Tablet) 650 mg PO Q6H PRN PRN Reason: Headache/Pain, Scale 1-10 Al Hydroxide/Mg Hydroxide (Magnesium Hydrox/Alum Hydrox 30 Ml Oral.Susp) 30 ml PO Q6H PRN PRN Reason: Heartburn/Nausea Chlorpromazine HCl (Chlorpromazine Hcl 25 Mg Tablet) 25 mg PO Q6H PRN PRN Reason: agitation Clozapine (Clozapine 25 Mg Tablet) 25 mg PO BEDTIME [facility] Last Admin: 10/12/24 21:19 Dose: 25 mg Cyanocobalamin (Cyanocobalamin (Vitamin B-12) 500 Mcg Tablet) 500 mcg PO DAILY [facility] Last Admin: 10/13/24 08:33 Dose: 500 mcg Gabapentin (Gabapentin 100 Mg Capsule) 100 mg PO DAILY PRN PRN Reason: Anxiety Last Admin: 10/12/24 18:32 Dose: 100 mg Hydroxyzine HCl (Hydroxyzine Hcl 25 Mg Tablet) 25 mg PO Q6H PRN PRN Reason: mild anxiety Last Admin: 10/12/24 13:59 Dose: 25 mg Lorazepam (Lorazepam 1 Mg Tablet) 1 mg PO BID [facility] Last Admin: 10/13/24 08:32 Dose: 1 mg Magnesium Hydroxide (Milk Of Magnesia 30 Ml Oral.Susp) 30 ml PO DAILY PRN PRN Reason: Constipation Multi-Ingred Cream/Lotion/Oil/Oint (Mineral Oil/Petrolatum,White 106 Gm Tube) 1 appl TOPICAL BID [facility]; Protocol Last Admin: 10/13/24 08:38 Dose: 1 appl Nicotine Polacrilex (Nicotine Polacrilex 2 Mg Gum) 4 mg BUCCAL Q2H PRN PRN Reason: Nicotine Cravings Risperidone (Risperidone 2 Mg Tablet) 4 mg PO DAILY [facility] Last Admin: 10/13/24 08:33 Dose: 4 mg Thiamine HCl (Thiamine Hcl 100 Mg Tablet) 100 mg PO DAILY [facility] Last Admin: 10/13/24 08:33 Dose: 100 mg Trazodone HCl (Trazodone Hcl 50 Mg Tablet) 50 mg PO BEDTIME MRX1 PRN PRN Reason: Insomnia Allergies Allergies Allergy/AdvReac Type Severity Reaction Status Date / Time aripiprazole [From ABILIFY] Allergy Severe TONGUE Verified 10/08/24 14:03 SWELLS, NAUSEA/VOMITING olanzapine [From ZYPREXA] AdvReac Unknown INVOLUNTARY Verified 10/08/24 14:03 SPASMS From [facility] AdvReac Unknown KEY Uncoded 10/08/24 14:03 Assessment & Plan Assessment & Plan (1) Schizoaffective disorder: Status: Acute Code(s): F25.9 - Schizoaffective disorder, unspecified Plan Patient is a 38-year-old male with history of schizophrenia who presented to [facility] [place] d/t paranoid behaviors secondary to medication non-compliance. Plan: CV 15 minute safety checks Continues home medications Restart clozapine 25mg PO daily with plan to increase obtain collateral dietitian consult encourage groups discharge planning 10/11/2024: No changes to current treatment plan. clozapine just restarted yesterday. Titrate clozapine as tolerated. Reports he will get lab work done tomorrow 10/12/24:Clozapine just started, check for cheeking 10/13: Increase Clozapine to 50 mg HS Patient educated on: medication risk/benefits and therapeutic strategies Reason for continued inpatient stay Substantial Risk for: rapid decompensation Time Spent With Patient Time: Total time managing care of this patient today ____ minutes.
[2024-10-13] MEDS: Gabapentin 100 MG CAPSULE PO (14:51)
[2024-10-13] MEDS: hydrOXYzine HCL 25 MG TABLET PO (14:52)
[2024-10-13 20:00] VITALS: RESP 18
[2024-10-13 20:13] LABS: MANUAL DIFF FLAG NO
[2024-10-13 20:16] LABS: Basophils Absolute Auto 0.1 X10*3/uL (0.0-0.2); Basophils Percent Auto 0.7 % (0-2); Eosinophils Absolute Auto 0.1 X10*3/uL (0.0-0.4); Hematocrit 37.4 % (42.0-52.0); Imm Gran Abs Auto 0.03 X10*3/uL (0.00-0.03); Imm Gran Pct Auto 0.4 % (0.0-0.4); Lymphocytes Absolute Auto 2.2 X10*3/uL (1.2-4.9); Lymphocytes Percent Auto 30.9 % (20-40); Mean Corpuscular HGB Conc 34.8 g/dl (31.0-36.0); Mean Corpuscular Hemoglobin 31.6 pg (27.0-33.0); Mean Corpuscular Volume 90.8 fL (80.0-98.0); Mean Platelet Volume 9.9 fL (9.4-12.4); Monocytes Absolute Auto 0.6 X10*3/uL (0.1-1.2); Monocytes Percent Auto 7.9 % (2-11); Neutrophils Absolute Auto 4.1 x10*3/uL (2.0-8.3); Neutrophils Percent Auto 58.1 % (45-73); Platelet Count 265 X10*3/uL (160-400); Red Blood Count 4.12 X10*6/uL (4.60-5.80); Red Cell Distribution Width 11.9 % (11.0-16.0)
[2024-10-13] MEDS: cloZAPine 25 MG TABLET 50 MG PO (20:49)
[2024-10-14 06:08] LABS: Estimated Average Glucose 108 mg/dL; Hemoglobin A1C 126.1562 umol/L; Hemoglobin A1c % 5.4 % (<6.0); Total Hemoglobin (HGBA1C) 3539.4351 umol/L
[2024-10-14 07:50] VITALS: BP 120/72; PULSE 97; RESP 16; TEMP 36.7; O2SAT 97
[2024-10-14] MEDS: Thiamine HCL 100 MG TABLET PO (08:31)
[2024-10-14] MEDS: risperiDONE 2 MG TABLET 4 MG PO (08:32)
[2024-10-14] MEDS: Cyanocobalamin (Vitamin B-12) 500 MCG TABLET PO (08:32)
[2024-10-14] MEDS: Mineral Oil/Petrolatum,White 106 GM Tube 1 APPL TOPICAL (08:32)
[2024-10-14] MEDS: LORazepam 1 MG TABLET PO ×2 (08:32→20:20)
--- NOTE | 2024-10-14 09:52 | HO.PSYCHPN ---
Subjective Subjective Date of Service: 10/14/24 Reason For Visit: Depression/ Failure to Thrive Subjective Notes: Conditional Voluntary Healthcare Proxy: No Guardianship: No Medical Problems Affecting Mental Status: No Interim History: Would you call [employer] on [address]? I have a year lease that expires in May. They need to tell me if it is safe to go home. I am afraid I will catch cancer if my neighbor is still there. Team report pt is spitting in the milieu, refuses hand washing, intolerant to redirective efforts- kitchen restriction placed. Reports excess salivation. Tolerating Clozapine increase. Does report some difficulty with speech when he first awakens, but that was there before I came in here. Also reports nightmares. Discussed medicine changes. Medication Compliance: Yes Side effects from medications: Yes (??) Attending Groups: Intermittent Review of Systems as noted Review of Systems Review of Systems sialorrhea Mental Status Exam Mental Status Exam Patient Appearance: Appropriate Patient Orientation: Person, Place and Situation Level of Consciousness: Alert Patient Behavior: Talkative and Good Eye Contact Mood Description: Withdrawn and Constricted Affect Description: Withdrawn and Constricted Patient Cognition Impaired: No Ability to Follow Directions: Good Speech Pattern: Spontaneous Speech Memory Description: Episodic Impaired Hallucinations: None Delusions: Paranoid Ideation and Present Thought Process: Distracted and Rumination Thought Content: positive for Circumstantial, positive for Perseveration, positive for Preoccupation, positive for Loose Associations, positive for Suicidal Ideation (denies) and positive for Homicidal Ideation (denies) Depressive Symptoms: Increased Anxiety and Difficulty Concentrating Judgement: Poor Diagnostics Vital Signs (24Hr): Vital Signs - 24 hr 10/13/24 20:00 10/14/24 07:50 Temperature 98.0 F Pulse Rate 97 Respiratory Rate 18 16 Blood Pressure 120/72 Pulse Oximetry 97 Oxygen Delivery Method Room Air BMI result Body Mass Index 17.0 Labs 10/13/24 20:02 10/10/24 16:49 Labs: Laboratory Results - last 48 hr 10/13/24 20:02 WBC 7.0 RBC 4.12 L Hgb 13.0 L Hct 37.4 L MCV 90.8 MCH 31.6 MCHC 34.8 RDW 11.9 Plt Count 265 MPV 9.9 Immature Gran % (Auto) 0.4 Neut % (Auto) 58.1 Lymph % (Auto) 30.9 Mcmullen % (Auto) 7.9 Eos % (Auto) 2.0 Baso % (Auto) 0.7 Lymph # (Auto) 2.2 Mcmullen # (Auto) 0.6 Eos # (Auto) 0.1 Baso # (Auto) 0.1 Abs Immat Gran (auto) 0.03 Absolute Neuts (auto) 4.1 Absolute Nucleated RBC 0.000 Nucleated RBC % (auto) 0.0 Estimat Average Glucose 108 Hemoglobin A1c % 5.4 Medications Medications Current Medications Acetaminophen (Acetaminophen 325 Mg Tablet) 650 mg PO Q6H PRN PRN Reason: Headache/Pain, Scale 1-10 Al Hydroxide/Mg Hydroxide (Magnesium Hydrox/Alum Hydrox 30 Ml Oral.Susp) 30 ml PO Q6H PRN PRN Reason: Heartburn/Nausea Chlorpromazine HCl (Chlorpromazine Hcl 25 Mg Tablet) 25 mg PO Q6H PRN PRN Reason: agitation Clozapine (Clozapine 25 Mg Tablet) 50 mg PO BEDTIME [facility] Last Admin: 10/13/24 20:49 Dose: 50 mg Cyanocobalamin (Cyanocobalamin (Vitamin B-12) 500 Mcg Tablet) 500 mcg PO DAILY [facility] Last Admin: 10/14/24 08:32 Dose: 500 mcg Gabapentin (Gabapentin 100 Mg Capsule) 100 mg PO DAILY PRN PRN Reason: Anxiety Last Admin: 10/13/24 14:51 Dose: 100 mg Hydroxyzine HCl (Hydroxyzine Hcl 25 Mg Tablet) 25 mg PO Q6H PRN PRN Reason: mild anxiety Last Admin: 10/13/24 14:52 Dose: 25 mg Lorazepam (Lorazepam 1 Mg Tablet) 1 mg PO BID [facility] Last Admin: 10/14/24 08:32 Dose: 1 mg Magnesium Hydroxide (Milk Of Magnesia 30 Ml Oral.Susp) 30 ml PO DAILY PRN PRN Reason: Constipation Multi-Ingred Cream/Lotion/Oil/Oint (Mineral Oil/Petrolatum,White 106 Gm Tube) 1 appl TOPICAL BID [facility]; Protocol Last Admin: 10/14/24 08:32 Dose: 1 appl Nicotine Polacrilex (Nicotine Polacrilex 2 Mg Gum) 4 mg BUCCAL Q2H PRN PRN Reason: Nicotine Cravings Risperidone (Risperidone 2 Mg Tablet) 4 mg PO DAILY [facility] Last Admin: 10/14/24 08:32 Dose: 4 mg Thiamine HCl (Thiamine Hcl 100 Mg Tablet) 100 mg PO DAILY [facility] Last Admin: 10/14/24 08:31 Dose: 100 mg Trazodone HCl (Trazodone Hcl 50 Mg Tablet) 50 mg PO BEDTIME MRX1 PRN PRN Reason: Insomnia Allergies Allergies Allergy/AdvReac Type Severity Reaction Status Date / Time aripiprazole [From ABILIFY] Allergy Severe TONGUE Verified 10/08/24 14:03 SWELLS, NAUSEA/VOMITING olanzapine [From ZYPREXA] AdvReac Unknown INVOLUNTARY Verified 10/08/24 14:03 SPASMS From [facility] AdvReac Unknown KEY Uncoded 10/08/24 14:03 Assessment & Plan Assessment & Plan (1) Schizoaffective disorder: Status: Acute Code(s): F25.9 - Schizoaffective disorder, unspecified Plan Patient is a 38-year-old male with history of schizophrenia who presented to [facility] [place] d/t paranoid behaviors secondary to medication non-compliance. Plan: CV 15 minute safety checks Continues home medications Restart clozapine 25mg PO daily with plan to increase obtain collateral dietitian consult encourage groups discharge planning 10/11/2024: No changes to current treatment plan. clozapine just restarted yesterday. Titrate clozapine as tolerated. Reports he will get lab work done tomorrow 10/12/24:Clozapine just started, check for cheeking 10/13: Increase Clozapine to 50 mg HS 10/14: Prazosin 1 mg HS-trial for nightmare mgt. Glycopyrrolate 0.5 mg bid trial for sialorrhea/resulting spitting in milieu. Reason for continued inpatient stay Substantial Risk for: inability to function and rapid decompensation Time Spent With Patient Time: Total time managing care of this patient today ____ minutes.
[2024-10-14] MEDS: Gabapentin 100 MG CAPSULE PO (18:05)
[2024-10-14 20:00] VITALS: BP 135/84; PULSE 89; RESP 18; TEMP 36.5; O2SAT 98
[2024-10-14 20:20] VITALS: BP 135/84
[2024-10-14] MEDS: cloZAPine 25 MG TABLET 50 MG PO (20:20)
[2024-10-14] MEDS: Prazosin HCL 1 MG CAPSULE PO (20:20)
[2024-10-15] MEDS: hydrOXYzine HCL 25 MG TABLET PO (05:51)
[2024-10-15 08:00] VITALS: BP 123/70; PULSE 96; RESP 12; TEMP 37.1; O2SAT 97
[2024-10-15 08:18] LABS: Neut%MD 64.1 %; Neutrophils Absolute Auto 3.5 x10*3/uL (2.0-8.3); WBCANC 5.5 X10*3/uL
[2024-10-15] MEDS: LORazepam 1 MG TABLET PO ×2 (08:20→20:27)
[2024-10-15] MEDS: risperiDONE 2 MG TABLET 4 MG PO (08:20)
[2024-10-15] MEDS: Cyanocobalamin (Vitamin B-12) 500 MCG TABLET PO (08:20)
[2024-10-15] MEDS: Thiamine HCL 100 MG TABLET PO (08:20)
--- NOTE | 2024-10-15 11:55 | P.PNPSI_ITS ---
Subjective Subjective Date of Service: 10/15/24 Reason For Visit: Depression/ Failure to Thrive Subjective Notes: Conditional Voluntary Interim History: Active on unit, keeping to self. Guarded. Patient reports feeling okay today; pt states he is not really worried about my neighbor anymore. I'm thinking about moving at some point but I plan on going back to my apartment when I leave here . denies SI/HI/VH/AH. denies excess salivating today; discussed increasing clozaril, pt agreed. Clozaril increased to 75mg PO bedtime. Medication Compliance: Yes Side effects from medications: No Attending Groups: No Mental Status Exam Mental Status Exam Narrative: Pt is alert and oriented; behavior is cooperative, calm, guarded; dressed in casual attire; mood is described as okay ; eye contact appropriate; Speech is normal rate, volume and not pressured; thought process is organized; Thought content is on tx/discharge; denies SI/HI/VH/AH. Diagnostics Vital Signs (24Hr): Vital Signs - 24 hr 10/14/24 20:00 10/14/24 20:20 10/15/24 08:00 Temperature 97.7 F 98.8 F Pulse Rate 89 96 Respiratory Rate 18 12 Blood Pressure 135/84 135/84 123/70 Pulse Oximetry 98 97 Oxygen Delivery Method Room Air Room Air BMI result Body Mass Index 17.0 Labs 10/13/24 20:02 10/10/24 16:49 Labs: Laboratory Results - last 48 hr 10/13/24 10/15/24 20:02 07:52 WBC 7.0 RBC 4.12 L Hgb 13.0 L Hct 37.4 L MCV 90.8 MCH 31.6 MCHC 34.8 RDW 11.9 Plt Count 265 MPV 9.9 Immature Gran % (Auto) 0.4 Neut % (Auto) 58.1 Lymph % (Auto) 30.9 [place] % (Auto) 7.9 Eos % (Auto) 2.0 Baso % (Auto) 0.7 Lymph # (Auto) 2.2 [place] # (Auto) 0.6 Eos # (Auto) 0.1 Baso # (Auto) 0.1 Abs Immat Gran (auto) 0.03 Absolute Neuts (auto) 4.1 3.5 Absolute Nucleated RBC 0.000 Nucleated RBC % (auto) 0.0 Estimat Average Glucose 108 Hemoglobin A1c % 5.4 Medications Medications Current Medications Acetaminophen (Acetaminophen 325 Mg Tablet) 650 mg PO Q6H PRN PRN Reason: Headache/Pain, Scale 1-10 Al Hydroxide/Mg Hydroxide (Magnesium Hydrox/Alum Hydrox 30 Ml Oral.Susp) 30 ml PO Q6H PRN PRN Reason: Heartburn/Nausea Chlorpromazine HCl (Chlorpromazine Hcl 25 Mg Tablet) 25 mg PO Q6H PRN PRN Reason: agitation Clozapine (Clozapine 25 Mg Tablet) 50 mg PO BEDTIME [facility] Last Admin: 10/14/24 20:20 Dose: 50 mg Cyanocobalamin (Cyanocobalamin (Vitamin B-12) 500 Mcg Tablet) 500 mcg PO DAILY [facility] Last Admin: 10/15/24 08:20 Dose: 500 mcg Gabapentin (Gabapentin 100 Mg Capsule) 100 mg PO DAILY PRN PRN Reason: Anxiety Last Admin: 10/14/24 18:05 Dose: 100 mg Glycopyrrolate (Glycopyrrolate 1 Mg Tablet) 0.5 mg PO BID [facility] Last Admin: 10/15/24 08:22 Dose: Not Given Hydroxyzine HCl (Hydroxyzine Hcl 25 Mg Tablet) 25 mg PO Q6H PRN PRN Reason: mild anxiety Last Admin: 10/15/24 05:51 Dose: 25 mg Lorazepam (Lorazepam 1 Mg Tablet) 1 mg PO BID [facility] Last Admin: 10/15/24 08:20 Dose: 1 mg Magnesium Hydroxide (Milk Of Magnesia 30 Ml Oral.Susp) 30 ml PO DAILY PRN PRN Reason: Constipation Multi-Ingred Cream/Lotion/Oil/Oint (Mineral Oil/Petrolatum,White 106 Gm Tube) 1 appl TOPICAL BID [facility]; Protocol Last Admin: 10/15/24 08:24 Dose: Not Given Nicotine Polacrilex (Nicotine Polacrilex 2 Mg Gum) 4 mg BUCCAL Q2H PRN PRN Reason: Nicotine Cravings Prazosin HCl (Prazosin Hcl 1 Mg Capsule) 1 mg PO BEDTIME [facility]; Protocol Last Admin: 10/14/24 20:20 Dose: 1 mg Risperidone (Risperidone 2 Mg Tablet) 4 mg PO DAILY [facility] Last Admin: 10/15/24 08:20 Dose: 4 mg Thiamine HCl (Thiamine Hcl 100 Mg Tablet) 100 mg PO DAILY [facility] Last Admin: 10/15/24 08:20 Dose: 100 mg Trazodone HCl (Trazodone Hcl 50 Mg Tablet) 50 mg PO BEDTIME MRX1 PRN PRN Reason: Insomnia Allergies Allergies Allergy/AdvReac Type Severity Reaction Status Date / Time aripiprazole [From ABILIFY] Allergy Severe TONGUE Verified 10/08/24 14:03 SWELLS, NAUSEA/VOMITING olanzapine [From ZYPREXA] AdvReac Unknown INVOLUNTARY Verified 10/08/24 14:03 SPASMS From ZOLOFT AdvReac Unknown KEY Uncoded 10/08/24 14:03 Assessment & Plan Assessment & Plan (1) Schizoaffective disorder: Status: Acute Code(s): F25.9 - Schizoaffective disorder, unspecified Plan Patient is a 38-year-old male with history of schizophrenia who presented to [facility] ER d/t paranoid behaviors secondary to medication non-compliance. Plan: CV 15 minute safety checks Continues home medications Restart clozapine 25mg PO daily with plan to increase obtain collateral dietitian consult encourage groups discharge planning 10/11/2024: No changes to current treatment plan. clozapine just restarted yesterday. Titrate clozapine as tolerated. Reports he will get lab work done tomorrow 10/12/24:Clozapine just started, check for cheeking 10/13: Increase Clozapine to 50 mg HS 10/14: Prazosin 1 mg HS-trial for nightmare mgt. Glycopyrrolate 0.5 mg bid trial for sialorrhea/resulting spitting in milieu. 10/15: Active on unit, keeping to self. Guarded. Patient reports feeling okay today; pt states he is not really worried about my neighbor anymore. I'm thinking about moving at some point but I plan on going back to my apartment when I leave here . denies SI/HI/VH/AH. denies excess salivating today; discussed increasing clozaril, pt agreed. Clozaril increased to 75mg PO bedtime. Patient educated on: diagnosis and medication risk/benefits Reason for continued inpatient stay Substantial Risk for: med/psych decompensation Time Spent With Patient Time: Total time managing care of this patient today _20___ minutes.
[2024-10-15] MEDS: Gabapentin 100 MG CAPSULE PO (18:04)
[2024-10-15 20:00] VITALS: BP 120/68; PULSE 112; RESP 16; TEMP 36.9; O2SAT 97
[2024-10-15] MEDS: cloZAPine 25 MG TABLET 75 MG PO (20:25)
[2024-10-15] MEDS: Prazosin HCL 1 MG CAPSULE PO (20:26)
[2024-10-15] MEDS: Glycopyrrolate 1 MG TABLET 0.5 MG PO (20:26)
[2024-10-16 07:00] VITALS: BMI 18.0
[2024-10-16 08:16] VITALS: BP 123/77; PULSE 127; RESP 14; TEMP 36.6; O2SAT 98
[2024-10-16] MEDS: Cyanocobalamin (Vitamin B-12) 500 MCG TABLET PO (08:17)
[2024-10-16] MEDS: risperiDONE 2 MG TABLET 4 MG PO (08:17)
[2024-10-16] MEDS: LORazepam 1 MG TABLET PO ×2 (08:17→20:30)
[2024-10-16] MEDS: Thiamine HCL 100 MG TABLET PO (08:17)
--- NOTE | 2024-10-16 13:38 | HO.PSYCHPN ---
Subjective Subjective Date of Service: 10/16/24 Reason For Visit: Depression/ Failure to Thrive Interim History: calm, cooperative. denies any issues with escalating doses of clozapine. agreeable to increase to 100 mg tonight after having received 75 mg last night. reports his target dose as 125 mg. per staff, c/o racing thoughts. taking meds aside from robinol. slept about 8 hours. Mental Status Exam Mental Status Exam Narrative: Pt is alert and oriented; behavior is cooperative, calm, guarded; dressed in casual attire; mood is described as okay ; eye contact appropriate; Speech is normal rate, volume and not pressured; thought process is organized; Thought content is on tx/discharge; denies SI/HI/VH/AH. Diagnostics Vital Signs (24Hr): Vital Signs - 24 hr 10/15/24 20:00 10/16/24 08:16 Temperature 98.4 F 97.8 F Pulse Rate 112 H 127 H Respiratory Rate 16 14 Blood Pressure 120/68 123/77 Pulse Oximetry 97 98 Oxygen Delivery Method Room Air Room Air BMI result Body Mass Index 18.0 Labs 10/13/24 20:02 10/10/24 16:49 Labs: Laboratory Results - last 48 hr 10/15/24 07:52 Absolute Neuts (auto) 3.5 Medications Medications Current Medications Acetaminophen (Acetaminophen 325 Mg Tablet) 650 mg PO Q6H PRN PRN Reason: Headache/Pain, Scale 1-10 Al Hydroxide/Mg Hydroxide (Magnesium Hydrox/Alum Hydrox 30 Ml Oral.Susp) 30 ml PO Q6H PRN PRN Reason: Heartburn/Nausea Chlorpromazine HCl (Chlorpromazine Hcl 25 Mg Tablet) 25 mg PO Q6H PRN PRN Reason: agitation Clozapine (Clozapine 100 Mg Tablet) 100 mg PO BEDTIME [facility] Cyanocobalamin (Cyanocobalamin (Vitamin B-12) 500 Mcg Tablet) 500 mcg PO DAILY [facility] Last Admin: 10/16/24 08:17 Dose: 500 mcg Gabapentin (Gabapentin 100 Mg Capsule) 100 mg PO DAILY PRN PRN Reason: Anxiety Last Admin: 10/15/24 18:04 Dose: 100 mg Glycopyrrolate (Glycopyrrolate 1 Mg Tablet) 0.5 mg PO BID [facility] Last Admin: 10/16/24 08:19 Dose: Not Given Hydroxyzine HCl (Hydroxyzine Hcl 25 Mg Tablet) 25 mg PO Q6H PRN PRN Reason: mild anxiety Last Admin: 10/15/24 05:51 Dose: 25 mg Lorazepam (Lorazepam 1 Mg Tablet) 1 mg PO BID [facility] Last Admin: 10/16/24 08:17 Dose: 1 mg Magnesium Hydroxide (Milk Of Magnesia 30 Ml Oral.Susp) 30 ml PO DAILY PRN PRN Reason: Constipation Multi-Ingred Cream/Lotion/Oil/Oint (Mineral Oil/Petrolatum,White 106 Gm Tube) 1 appl TOPICAL BID [facility]; Protocol Last Admin: 10/16/24 08:19 Dose: Not Given Nicotine Polacrilex (Nicotine Polacrilex 2 Mg Gum) 4 mg BUCCAL Q2H PRN PRN Reason: Nicotine Cravings Prazosin HCl (Prazosin Hcl 1 Mg Capsule) 1 mg PO BEDTIME [facility]; Protocol Last Admin: 10/15/24 20:26 Dose: 1 mg Risperidone (Risperidone 2 Mg Tablet) 4 mg PO DAILY [facility] Last Admin: 10/16/24 08:17 Dose: 4 mg Thiamine HCl (Thiamine Hcl 100 Mg Tablet) 100 mg PO DAILY [facility] Last Admin: 10/16/24 08:17 Dose: 100 mg Trazodone HCl (Trazodone Hcl 50 Mg Tablet) 50 mg PO BEDTIME MRX1 PRN PRN Reason: Insomnia Allergies Allergies Allergy/AdvReac Type Severity Reaction Status Date / Time aripiprazole [From ABILIFY] Allergy Severe TONGUE Verified 10/08/24 14:03 SWELLS, NAUSEA/VOMITING olanzapine [From ZYPREXA] AdvReac Unknown INVOLUNTARY Verified 10/08/24 14:03 SPASMS From [facility]OLOFT AdvReac Unknown KEY Uncoded 10/08/24 14:03 Assessment & Plan Assessment & Plan (1) Schizoaffective disorder: Status: Acute Code(s): F25.9 - Schizoaffective disorder, unspecified Plan Patient is a 38-year-old male with history of schizophrenia who presented to [facility] ER d/t paranoid behaviors secondary to medication non-compliance. Plan: CV 15 minute safety checks Continues home medications Restart clozapine 25mg PO daily with plan to increase obtain collateral dietitian consult encourage groups discharge planning 10/11/2024: No changes to current treatment plan. clozapine just restarted yesterday. Titrate clozapine as tolerated. Reports he will get lab work done tomorrow 10/12/24:Clozapine just started, check for cheeking 10/13: Increase Clozapine to 50 mg HS 10/14: Prazosin 1 mg HS-trial for nightmare mgt. Glycopyrrolate 0.5 mg bid trial for sialorrhea/resulting spitting in milieu. 10/15: Active on unit, keeping to self. Guarded. Patient reports feeling okay today; pt states he is not really worried about my neighbor anymore. I'm thinking about moving at some point but I plan on going back to my apartment when I leave here . denies SI/HI/VH/AH. denies excess salivating today; discussed increasing clozaril, pt agreed. Clozaril increased to 75mg PO bedtime. 10/16: calm, cooperative, pleasant. denies s/e from clozail 75 last night. increase to clozaril 100 tonight. Reason for continued inpatient stay Substantial Risk for: inability to function Time Spent With Patient Time: Total time managing care of this patient today __25__ minutes.
[2024-10-16] MEDS: Mineral Oil/Petrolatum,White 106 GM Tube 1 APPL TOPICAL (16:54)
[2024-10-16 20:00] VITALS: BP 127/71; PULSE 87; RESP 16; TEMP 36.8; O2SAT 97
[2024-10-16] MEDS: cloZAPine 100 MG TABLET PO (20:31)
[2024-10-17 08:20] VITALS: BP 125/72; PULSE 70; RESP 16; TEMP 37.1; O2SAT 95
[2024-10-17] MEDS: Cyanocobalamin (Vitamin B-12) 500 MCG TABLET PO (08:38)
[2024-10-17] MEDS: risperiDONE 2 MG TABLET 4 MG PO (08:38)
[2024-10-17] MEDS: Thiamine HCL 100 MG TABLET PO (08:38)
[2024-10-17] MEDS: LORazepam 1 MG TABLET PO (08:38)
--- NOTE | 2024-10-17 08:53 | P.PNPSI_ITS ---
Subjective Subjective Date of Service: 10/17/24 Reason For Visit: Depression/ Failure to Thrive Subjective Notes: Conditional Voluntary Interim History: Active on unit. keeping to self. medication compliant. Patient reports feeling good but a little drowsy ; discussed medications.denies SI/HI/VH/AH. Change risperidal to bedtime. Decrease ativan to 0.5mg PO BID; with plan to taper off prior to discharge. Increase Clozaril to 125mg PO bedtime. Medication Compliance: Yes Side effects from medications: No Mental Status Exam Mental Status Exam Narrative: Pt is alert and oriented; behavior is cooperative, calm, guarded; dressed in casual attire; mood is described as good ; eye contact appropriate; Speech is normal rate, volume and not pressured; thought process is organized; Thought content is on tx/discharge; denies SI/HI/VH/AH. Diagnostics Vital Signs (24Hr): Vital Signs - 24 hr 10/16/24 20:00 10/17/24 08:20 Temperature 98.3 F 98.7 F Pulse Rate 87 70 Respiratory Rate 16 16 Blood Pressure 127/71 125/72 Pulse Oximetry 97 95 Oxygen Delivery Method Room Air Room Air BMI result Body Mass Index 18.0 Labs 10/13/24 20:02 10/10/24 16:49 Medications Medications Current Medications Acetaminophen (Acetaminophen 325 Mg Tablet) 650 mg PO Q6H PRN PRN Reason: Headache/Pain, Scale 1-10 Al Hydroxide/Mg Hydroxide (Magnesium Hydrox/Alum Hydrox 30 Ml Oral.Susp) 30 ml PO Q6H PRN PRN Reason: Heartburn/Nausea Chlorpromazine HCl (Chlorpromazine Hcl 25 Mg Tablet) 25 mg PO Q6H PRN PRN Reason: agitation Clozapine (Clozapine 100 Mg Tablet) 100 mg PO BEDTIME [facility] Last Admin: 10/16/24 20:31 Dose: 100 mg Cyanocobalamin (Cyanocobalamin (Vitamin B-12) 500 Mcg Tablet) 500 mcg PO DAILY [facility] Last Admin: 10/17/24 08:38 Dose: 500 mcg Gabapentin (Gabapentin 100 Mg Capsule) 100 mg PO DAILY PRN PRN Reason: Anxiety Last Admin: 10/15/24 18:04 Dose: 100 mg Glycopyrrolate (Glycopyrrolate 1 Mg Tablet) 0.5 mg PO BID [facility] Last Admin: 10/17/24 08:40 Dose: Not Given Hydroxyzine HCl (Hydroxyzine Hcl 25 Mg Tablet) 25 mg PO Q6H PRN PRN Reason: mild anxiety Last Admin: 10/15/24 05:51 Dose: 25 mg Lorazepam (Lorazepam 1 Mg Tablet) 1 mg PO BID [facility] Last Admin: 10/17/24 08:38 Dose: 1 mg Magnesium Hydroxide (Milk Of Magnesia 30 Ml Oral.Susp) 30 ml PO DAILY PRN PRN Reason: Constipation Multi-Ingred Cream/Lotion/Oil/Oint (Mineral Oil/Petrolatum,White 106 Gm Tube) 1 appl TOPICAL BID [facility]; Protocol Last Admin: 10/16/24 20:36 Dose: Not Given Nicotine Polacrilex (Nicotine Polacrilex 2 Mg Gum) 4 mg BUCCAL Q2H PRN PRN Reason: Nicotine Cravings Prazosin HCl (Prazosin Hcl 1 Mg Capsule) 1 mg PO BEDTIME [facility]; Protocol Last Admin: 10/16/24 20:36 Dose: Not Given Risperidone (Risperidone 2 Mg Tablet) 4 mg PO DAILY [facility] Last Admin: 10/17/24 08:38 Dose: 4 mg Thiamine HCl (Thiamine Hcl 100 Mg Tablet) 100 mg PO DAILY [facility] Last Admin: 10/17/24 08:38 Dose: 100 mg Trazodone HCl (Trazodone Hcl 50 Mg Tablet) 50 mg PO BEDTIME MRX1 PRN PRN Reason: Insomnia Allergies Allergies Allergy/AdvReac Type Severity Reaction Status Date / Time aripiprazole [From ABILIFY] Allergy Severe TONGUE Verified 10/08/24 14:03 SWELLS, NAUSEA/VOMITING olanzapine [From ZYPREXA] AdvReac Unknown INVOLUNTARY Verified 10/08/24 14:03 SPASMS From [facility]OLOFT AdvReac Unknown KEY Uncoded 10/08/24 14:03 Assessment & Plan Assessment & Plan (1) Schizoaffective disorder: Status: Acute Code(s): F25.9 - Schizoaffective disorder, unspecified Plan Patient is a 38-year-old male with history of schizophrenia who presented to [facility] [facility] ER d/t paranoid behaviors secondary to medication non-compliance. Plan: CV 15 minute safety checks Continues home medications Restart clozapine 25mg PO daily with plan to increase obtain collateral dietitian consult encourage groups discharge planning 10/11/2024: No changes to current treatment plan. clozapine just restarted yesterday. Titrate clozapine as tolerated. Reports he will get lab work done tomorrow 10/12/24:Clozapine just started, check for cheeking 10/13: Increase Clozapine to 50 mg HS 10/14: Prazosin 1 mg HS-trial for nightmare mgt. Glycopyrrolate 0.5 mg bid trial for sialorrhea/resulting spitting in milieu. 10/15: Active on unit, keeping to self. Guarded. Patient reports feeling okay today; pt states he is not really worried about my neighbor anymore. I'm thinking about moving at some point but I plan on going back to my apartment when I leave here . denies SI/HI/VH/AH. denies excess salivating today; discussed increasing clozaril, pt agreed. Clozaril increased to 75mg PO bedtime. 10/16: calm, cooperative, pleasant. denies s/e from clozail 75 last night. increase to clozaril 100 tonight. 10/17: Active on unit. keeping to self. medication compliant. Patient reports feeling good but a little drowsy ; discussed medications.denies SI/HI/VH/AH. Change risperidal to bedtime. Decrease ativan to 0.5mg PO BID; with plan to taper off prior to discharge. Increase Clozaril to 125mg PO bedtime. Patient educated on: diagnosis and medication risk/benefits Reason for continued inpatient stay Substantial Risk for: med/psych decompensation Time Spent With Patient Time: Total time managing care of this patient today __20__ minutes.
[2024-10-17] MEDS: Mineral Oil/Petrolatum,White 106 GM Tube 1 APPL TOPICAL ×2 (09:02→21:35)
[2024-10-17 20:00] VITALS: RESP 18
[2024-10-17 20:35] VITALS: BP 129/79
[2024-10-17] MEDS: LORazepam 0.5 MG TABLET PO (20:35)
[2024-10-17] MEDS: cloZAPine 25 MG TABLET 125 MG PO (20:35)
[2024-10-17] MEDS: Prazosin HCL 1 MG CAPSULE PO (20:35)
[2024-10-17] MEDS: Glycopyrrolate 1 MG TABLET 0.5 MG PO (20:36)
[2024-10-18 08:49] VITALS: BP 122/74; PULSE 102; RESP 16; TEMP 36.4; O2SAT 98
[2024-10-18] MEDS: LORazepam 0.5 MG TABLET PO ×2 (08:51→20:05)
[2024-10-18] MEDS: Thiamine HCL 100 MG TABLET PO (08:51)
[2024-10-18] MEDS: Cyanocobalamin (Vitamin B-12) 500 MCG TABLET PO (08:52)
[2024-10-18] MEDS: Mineral Oil/Petrolatum,White 106 GM Tube 1 APPL TOPICAL ×2 (11:01→20:26)
--- NOTE | 2024-10-18 14:49 | HO.PSYCHPN ---
Subjective Subjective Date of Service: 10/18/24 Reason For Visit: Depression/ Failure to Thrive Subjective Notes: Conditional Voluntary Interim History: Active on unit. keeping to self. medication compliant. Patient reports feeling alright today; pt stated, I'm thinking about going back to my apartment. I need to get a job so I can buy myself a bike . future oriented. denies SI/HI/VH/AH. denies any side effects from medication adjustments. Continue current tx plan. Medication Compliance: Yes Side effects from medications: No Attending Groups: No Mental Status Exam Mental Status Exam Narrative: Pt is alert and oriented; behavior is cooperative, calm; dressed in casual attire; mood is described as good ; eye contact appropriate; Speech is normal rate, volume and not pressured; thought process is organized, future oriented; Thought content is on discharge; denies SI/HI/VH/AH. Diagnostics Vital Signs (24Hr): Vital Signs - 24 hr 10/17/24 20:00 10/17/24 20:35 10/18/24 08:49 Temperature 97.6 F Pulse Rate 102 H Respiratory Rate 18 16 Blood Pressure 129/79 122/74 Pulse Oximetry 98 Oxygen Delivery Method Room Air BMI result Body Mass Index 18.0 Labs 10/13/24 20:02 10/10/24 16:49 Medications Medications Current Medications Acetaminophen (Acetaminophen 325 Mg Tablet) 650 mg PO Q6H PRN PRN Reason: Headache/Pain, Scale 1-10 Al Hydroxide/Mg Hydroxide (Magnesium Hydrox/Alum Hydrox 30 Ml Oral.Susp) 30 ml PO Q6H PRN PRN Reason: Heartburn/Nausea Chlorpromazine HCl (Chlorpromazine Hcl 25 Mg Tablet) 25 mg PO Q6H PRN PRN Reason: agitation Clozapine (Clozapine 25 Mg Tablet) 125 mg PO BEDTIME [facility] Last Admin: 10/17/24 20:35 Dose: 125 mg Cyanocobalamin (Cyanocobalamin (Vitamin B-12) 500 Mcg Tablet) 500 mcg PO DAILY [facility] Last Admin: 10/18/24 08:52 Dose: 500 mcg Gabapentin (Gabapentin 100 Mg Capsule) 100 mg PO DAILY PRN PRN Reason: Anxiety Last Admin: 10/15/24 18:04 Dose: 100 mg Glycopyrrolate (Glycopyrrolate 1 Mg Tablet) 0.5 mg PO BID [facility] Last Admin: 10/18/24 08:52 Dose: Not Given Hydroxyzine HCl (Hydroxyzine Hcl 25 Mg Tablet) 25 mg PO Q6H PRN PRN Reason: mild anxiety Last Admin: 10/15/24 05:51 Dose: 25 mg Lorazepam (Lorazepam 0.5 Mg Tablet) 0.5 mg PO BID [facility] Last Admin: 10/18/24 08:51 Dose: 0.5 mg Magnesium Hydroxide (Milk Of Magnesia 30 Ml Oral.Susp) 30 ml PO DAILY PRN PRN Reason: Constipation Multi-Ingred Cream/Lotion/Oil/Oint (Mineral Oil/Petrolatum,White 106 Gm Tube) 1 appl TOPICAL BID [facility]; Protocol Last Admin: 10/18/24 11:01 Dose: 1 appl Nicotine Polacrilex (Nicotine Polacrilex 2 Mg Gum) 4 mg BUCCAL Q2H PRN PRN Reason: Nicotine Cravings Prazosin HCl (Prazosin Hcl 1 Mg Capsule) 1 mg PO BEDTIME [facility]; Protocol Last Admin: 10/17/24 20:35 Dose: 1 mg Risperidone (Risperidone 2 Mg Tablet) 4 mg PO BEDTIME [facility] Thiamine HCl (Thiamine Hcl 100 Mg Tablet) 100 mg PO DAILY [facility] Last Admin: 10/18/24 08:51 Dose: 100 mg Trazodone HCl (Trazodone Hcl 50 Mg Tablet) 50 mg PO BEDTIME MRX1 PRN PRN Reason: Insomnia Allergies Allergies Allergy/AdvReac Type Severity Reaction Status Date / Time aripiprazole [From ABILIFY] Allergy Severe TONGUE Verified 10/08/24 14:03 SWELLS, NAUSEA/VOMITING olanzapine [From ZYPREXA] AdvReac Unknown INVOLUNTARY Verified 10/08/24 14:03 SPASMS From ZOLOFT AdvReac Unknown KEY Uncoded 10/08/24 14:03 Assessment & Plan Assessment & Plan (1) Schizoaffective disorder: Status: Acute Code(s): F25.9 - Schizoaffective disorder, unspecified Plan Patient is a 38-year-old male with history of schizophrenia who presented to [facility] [place] ER d/t paranoid behaviors secondary to medication non-compliance. Plan: CV 15 minute safety checks Continues home medications Restart clozapine 25mg PO daily with plan to increase obtain collateral dietitian consult encourage groups discharge planning 10/11/2024: No changes to current treatment plan. clozapine just restarted yesterday. Titrate clozapine as tolerated. Reports he will get lab work done tomorrow 10/12/24:Clozapine just started, check for cheeking 10/13: Increase Clozapine to 50 mg HS 10/14: Prazosin 1 mg HS-trial for nightmare mgt. Glycopyrrolate 0.5 mg bid trial for sialorrhea/resulting spitting in milieu. 10/15: Active on unit, keeping to self. Guarded. Patient reports feeling okay today; pt states he is not really worried about my neighbor anymore. I'm thinking about moving at some point but I plan on going back to my apartment when I leave here . denies SI/HI/VH/AH. denies excess salivating today; discussed increasing clozaril, pt agreed. Clozaril increased to 75mg PO bedtime. 10/16: calm, cooperative, pleasant. denies s/e from clozail 75 last night. increase to clozaril 100 tonight. 10/17: Active on unit. keeping to self. medication compliant. Patient reports feeling good but a little drowsy ; discussed medications.denies SI/HI/VH/AH. Change risperidal to bedtime. Decrease ativan to 0.5mg PO BID; with plan to taper off prior to discharge. Increase Clozaril to 125mg PO bedtime. 10/18: Active on unit. keeping to self. medication compliant. Patient reports feeling alright today; pt stated, I'm thinking about going back to my apartment. I need to get a job so I can buy myself a bike . future oriented. denies SI/HI/VH/AH. denies any side effects from medication adjustments. Continue current tx plan. Patient educated on: diagnosis and medication risk/benefits Reason for continued inpatient stay Substantial Risk for: med/psych decompensation Time Spent With Patient Time: Total time managing care of this patient today _20___ minutes.
[2024-10-18 19:15] VITALS: BP 120/70; PULSE 80; RESP 16; TEMP 36.9; O2SAT 96
[2024-10-18] MEDS: Prazosin HCL 1 MG CAPSULE PO (20:04)
[2024-10-18] MEDS: cloZAPine 25 MG TABLET 125 MG PO (20:04)
[2024-10-18] MEDS: risperiDONE 2 MG TABLET 4 MG PO (20:05)
[2024-10-19 08:22] VITALS: BP 139/78; PULSE 104; RESP 16; TEMP 36.7; O2SAT 98
[2024-10-19] MEDS: Mineral Oil/Petrolatum,White 106 GM Tube 1 APPL TOPICAL ×2 (08:24→20:17)
[2024-10-19] MEDS: LORazepam 0.5 MG TABLET PO (08:24)
[2024-10-19] MEDS: Thiamine HCL 100 MG TABLET PO (08:24)
[2024-10-19] MEDS: Cyanocobalamin (Vitamin B-12) 500 MCG TABLET PO (08:24)
--- NOTE | 2024-10-19 09:21 | HO.PSYCHPN ---
Subjective Subjective Date of Service: 10/19/24 Reason For Visit: Depression/ Failure to Thrive Subjective Notes: Conditional Voluntary Interim History: Patient continues to report feeling alright today; labs ordered for tomorrow morning. future oriented. denies SI/HI/VH/AH. per nursing, slept 8 hours last night. no paranoid or delusional statements made during assessment. Continue current tx plan. Medication Compliance: Yes Side effects from medications: No Attending Groups: No Mental Status Exam Mental Status Exam Narrative: Pt is alert and oriented; behavior is cooperative, calm; dressed in casual attire; mood is described as good ; eye contact appropriate; Speech is normal rate, volume and not pressured; thought process is organized, future oriented; Thought content is on discharge; denies SI/HI/VH/AH. Diagnostics Vital Signs (24Hr): Vital Signs - 24 hr 10/18/24 19:15 10/19/24 08:22 Temperature 98.4 F 98.1 F Pulse Rate 80 104 H Respiratory Rate 16 16 Blood Pressure 120/70 139/78 Pulse Oximetry 96 98 Oxygen Delivery Method Room Air Room Air BMI result Body Mass Index 18.0 Labs 10/13/24 20:02 10/10/24 16:49 Medications Medications Current Medications Acetaminophen (Acetaminophen 325 Mg Tablet) 650 mg PO Q6H PRN PRN Reason: Headache/Pain, Scale 1-10 Al Hydroxide/Mg Hydroxide (Magnesium Hydrox/Alum Hydrox 30 Ml Oral.Susp) 30 ml PO Q6H PRN PRN Reason: Heartburn/Nausea Chlorpromazine HCl (Chlorpromazine Hcl 25 Mg Tablet) 25 mg PO Q6H PRN PRN Reason: agitation Clozapine (Clozapine 25 Mg Tablet) 125 mg PO BEDTIME [facility] Last Admin: 10/18/24 20:04 Dose: 125 mg Cyanocobalamin (Cyanocobalamin (Vitamin B-12) 500 Mcg Tablet) 500 mcg PO DAILY INDRA Last Admin: 10/19/24 08:24 Dose: 500 mcg Gabapentin (Gabapentin 100 Mg Capsule) 100 mg PO DAILY PRN PRN Reason: Anxiety Last Admin: 10/15/24 18:04 Dose: 100 mg Glycopyrrolate (Glycopyrrolate 1 Mg Tablet) 0.5 mg PO BID [facility] Last Admin: 10/19/24 08:24 Dose: Not Given Hydroxyzine HCl (Hydroxyzine Hcl 25 Mg Tablet) 25 mg PO Q6H PRN PRN Reason: mild anxiety Last Admin: 10/15/24 05:51 Dose: 25 mg Lorazepam (Lorazepam 0.5 Mg Tablet) 0.5 mg PO BID [facility] Last Admin: 10/19/24 08:24 Dose: 0.5 mg Magnesium Hydroxide (Milk Of Magnesia 30 Ml Oral.Susp) 30 ml PO DAILY PRN PRN Reason: Constipation Multi-Ingred Cream/Lotion/Oil/Oint (Mineral Oil/Petrolatum,White 106 Gm Tube) 1 appl TOPICAL BID INDRA; Protocol Last Admin: 10/19/24 08:24 Dose: 1 appl Nicotine Polacrilex (Nicotine Polacrilex 2 Mg Gum) 4 mg BUCCAL Q2H PRN PRN Reason: Nicotine Cravings Prazosin HCl (Prazosin Hcl 1 Mg Capsule) 1 mg PO BEDTIME IN[facility]; Protocol Last Admin: 10/18/24 20:04 Dose: 1 mg Risperidone (Risperidone 2 Mg Tablet) 4 mg PO BEDTIME [facility] Last Admin: 10/18/24 20:05 Dose: 4 mg Thiamine HCl (Thiamine Hcl 100 Mg Tablet) 100 mg PO DAILY INDRA Last Admin: 10/19/24 08:24 Dose: 100 mg Trazodone HCl (Trazodone Hcl 50 Mg Tablet) 50 mg PO BEDTIME MRX1 PRN PRN Reason: Insomnia Allergies Allergies Allergy/AdvReac Type Severity Reaction Status Date / Time aripiprazole [From ABILIFY] Allergy Severe TONGUE Verified 10/08/24 14:03 SWELLS, NAUSEA/VOMITING olanzapine [From ZYPREXA] AdvReac Unknown INVOLUNTARY Verified 10/08/24 14:03 SPASMS From ZOLOFT AdvReac Unknown KEY Uncoded 10/08/24 14:03 Assessment & Plan Assessment & Plan (1) Schizoaffective disorder: Status: Acute Code(s): F25.9 - Schizoaffective disorder, unspecified Plan Patient is a 38-year-old male with history of schizophrenia who presented to [facility] ER d/t paranoid behaviors secondary to medication non-compliance. Plan: CV 15 minute safety checks Continues home medications Restart clozapine 25mg PO daily with plan to increase obtain collateral dietitian consult encourage groups discharge planning 10/11/2024: No changes to current treatment plan. clozapine just restarted yesterday. Titrate clozapine as tolerated. Reports he will get lab work done tomorrow 10/12/24:Clozapine just started, check for cheeking 10/13: Increase Clozapine to 50 mg HS 10/14: Prazosin 1 mg HS-trial for nightmare mgt. Glycopyrrolate 0.5 mg bid trial for sialorrhea/resulting spitting in milieu. 10/15: Active on unit, keeping to self. Guarded. Patient reports feeling okay today; pt states he is not really worried about my neighbor anymore. I'm thinking about moving at some point but I plan on going back to my apartment when I leave here . denies SI/HI/VH/AH. denies excess salivating today; discussed increasing clozaril, pt agreed. Clozaril increased to 75mg PO bedtime. 10/16: calm, cooperative, pleasant. denies s/e from clozail 75 last night. increase to clozaril 100 tonight. 10/17: Active on unit. keeping to self. medication compliant. Patient reports feeling good but a little drowsy ; discussed medications.denies SI/HI/VH/AH. Change risperidal to bedtime. Decrease ativan to 0.5mg PO BID; with plan to taper off prior to discharge. Increase Clozaril to 125mg PO bedtime. 10/18: Active on unit. keeping to self. medication compliant. Patient reports feeling alright today; pt stated, I'm thinking about going back to my apartment. I need to get a job so I can buy myself a bike . future oriented. denies SI/HI/VH/AH. denies any side effects from medication adjustments. Continue current tx plan. 10/19: Patient continues to report feeling alright today; labs ordered for tomorrow morning. future oriented. denies SI/HI/VH/AH. per nursing, slept 8 hours last night. no paranoid or delusional statements made during assessment. Continue current tx plan. Patient educated on: diagnosis and medication risk/benefits Reason for continued inpatient stay Substantial Risk for: med/psych decompensation Time Spent With Patient Time: Total time managing care of this patient today _20___ minutes.
[2024-10-19 20:08] VITALS: BP 128/65; PULSE 87; RESP 16; TEMP 37.2; O2SAT 96
[2024-10-19] MEDS: cloZAPine 25 MG TABLET 125 MG PO (20:10)
[2024-10-19] MEDS: risperiDONE 2 MG TABLET 4 MG PO (20:11)
[2024-10-19] MEDS: Prazosin HCL 1 MG CAPSULE PO (20:11)
[2024-10-20] MEDS: LORazepam 0.5 MG TABLET PO (08:31)
[2024-10-20] MEDS: Thiamine HCL 100 MG TABLET PO (08:31)
[2024-10-20] MEDS: Mineral Oil/Petrolatum,White 106 GM Tube 1 APPL TOPICAL ×2 (08:48→20:15)
--- NOTE | 2024-10-20 08:49 | P.PNPSI_ITS ---
Subjective Subjective Date of Service: 10/20/24 Reason For Visit: Depression/ Failure to Thrive Subjective Notes: Conditional Voluntary Interim History: Irritable. per nursing, frequency asking for items but then throws it away and ask for same item again. Showered. medication compliant. discussed increasing clozaril; pt agreed. Dose increased to 150mg PO bedtime. focused on wanting to pay his bill via cellphone. denies SI/HI/VH/AH. Medication Compliance: Yes Side effects from medications: No Attending Groups: Intermittent Mental Status Exam Mental Status Exam Narrative: Pt is alert and oriented; behavior is cooperative, calm; dressed in casual attire; mood is described as irritable ; eye contact appropriate; Speech is normal rate, volume and not pressured; thought process is organized; Thought content is on discharge; denies SI/HI/VH/AH. Diagnostics Vital Signs (24Hr): Vital Signs - 24 hr 10/19/24 20:08 Temperature 98.9 F Pulse Rate 87 Respiratory Rate 16 Blood Pressure 128/65 Pulse Oximetry 96 Oxygen Delivery Method Room Air BMI result Body Mass Index 18.0 Labs 10/20/24 08:13 10/10/24 16:49 Medications Medications Current Medications Acetaminophen (Acetaminophen 325 Mg Tablet) 650 mg PO Q6H PRN PRN Reason: Headache/Pain, Scale 1-10 Al Hydroxide/Mg Hydroxide (Magnesium Hydrox/Alum Hydrox 30 Ml Oral.Susp) 30 ml PO Q6H PRN PRN Reason: Heartburn/Nausea Chlorpromazine HCl (Chlorpromazine Hcl 25 Mg Tablet) 25 mg PO Q6H PRN PRN Reason: agitation Clozapine (Clozapine 25 Mg Tablet) 125 mg PO BEDTIME [facility] Last Admin: 10/19/24 20:10 Dose: 125 mg Cyanocobalamin (Cyanocobalamin (Vitamin B-12) 500 Mcg Tablet) 500 mcg PO DAILY [facility] Last Admin: 10/20/24 08:46 Dose: Not Given Gabapentin (Gabapentin 100 Mg Capsule) 100 mg PO DAILY PRN PRN Reason: Anxiety Last Admin: 10/15/24 18:04 Dose: 100 mg Glycopyrrolate (Glycopyrrolate 1 Mg Tablet) 0.5 mg PO BID [facility] Last Admin: 10/20/24 08:45 Dose: Not Given Hydroxyzine HCl (Hydroxyzine Hcl 25 Mg Tablet) 25 mg PO Q6H PRN PRN Reason: mild anxiety Last Admin: 10/15/24 05:51 Dose: 25 mg Lorazepam (Lorazepam 0.5 Mg Tablet) 0.5 mg PO DAILY INDRA Last Admin: 10/20/24 08:31 Dose: 0.5 mg Magnesium Hydroxide (Milk Of Magnesia 30 Ml Oral.Susp) 30 ml PO DAILY PRN PRN Reason: Constipation Multi-Ingred Cream/Lotion/Oil/Oint (Mineral Oil/Petrolatum,White 106 Gm Tube) 1 appl TOPICAL BID INDRA; Protocol Last Admin: 10/19/24 20:17 Dose: 1 appl Nicotine Polacrilex (Nicotine Polacrilex 2 Mg Gum) 4 mg BUCCAL Q2H PRN PRN Reason: Nicotine Cravings Prazosin HCl (Prazosin Hcl 1 Mg Capsule) 1 mg PO BEDTIME IN[facility]; Protocol Last Admin: 10/19/24 20:11 Dose: 1 mg Risperidone (Risperidone 2 Mg Tablet) 4 mg PO BEDTIME [facility] Last Admin: 10/19/24 20:11 Dose: 4 mg Thiamine HCl (Thiamine Hcl 100 Mg Tablet) 100 mg PO DAILY INDRA Last Admin: 10/20/24 08:31 Dose: 100 mg Trazodone HCl (Trazodone Hcl 50 Mg Tablet) 50 mg PO BEDTIME MRX1 PRN PRN Reason: Insomnia Allergies Allergies Allergy/AdvReac Type Severity Reaction Status Date / Time aripiprazole [From ABILIFY] Allergy Severe TONGUE Verified 10/08/24 14:03 SWELLS, NAUSEA/VOMITING olanzapine [From ZYPREXA] AdvReac Unknown INVOLUNTARY Verified 10/08/24 14:03 SPASMS From ZOLOFT AdvReac Unknown KEY Uncoded 10/08/24 14:03 Assessment & Plan Assessment & Plan (1) Schizoaffective disorder: Status: Acute Code(s): F25.9 - Schizoaffective disorder, unspecified Plan Patient is a 38-year-old male with history of schizophrenia who presented to [facility] ER d/t paranoid behaviors secondary to medication non-compliance. Plan: CV 15 minute safety checks Continues home medications Restart clozapine 25mg PO daily with plan to increase obtain collateral dietitian consult encourage groups discharge planning 10/11/2024: No changes to current treatment plan. clozapine just restarted yesterday. Titrate clozapine as tolerated. Reports he will get lab work done tomorrow 10/12/24:Clozapine just started, check for cheeking 10/13: Increase Clozapine to 50 mg HS 10/14: Prazosin 1 mg HS-trial for nightmare mgt. Glycopyrrolate 0.5 mg bid trial for sialorrhea/resulting spitting in milieu. 10/15: Active on unit, keeping to self. Guarded. Patient reports feeling okay today; pt states he is not really worried about my neighbor anymore. I'm thinking about moving at some point but I plan on going back to my apartment when I leave here . denies SI/HI/VH/AH. denies excess salivating today; discussed increasing clozaril, pt agreed. Clozaril increased to 75mg PO bedtime. 10/16: calm, cooperative, pleasant. denies s/e from clozail 75 last night. increase to clozaril 100 tonight. 10/17: Active on unit. keeping to self. medication compliant. Patient reports feeling good but a little drowsy ; discussed medications.denies SI/HI/VH/AH. Change risperidal to bedtime. Decrease ativan to 0.5mg PO BID; with plan to taper off prior to discharge. Increase Clozaril to 125mg PO bedtime. 10/18: Active on unit. keeping to self. medication compliant. Patient reports feeling alright today; pt stated, I'm thinking about going back to my apartment. I need to get a job so I can buy myself a bike . future oriented. denies SI/HI/VH/AH. denies any side effects from medication adjustments. Continue current tx plan. 10/19: Patient continues to report feeling alright today; labs ordered for tomorrow morning. future oriented. denies SI/HI/VH/AH. per nursing, slept 8 hours last night. no paranoid or delusional statements made during assessment. Continue current tx plan. 10/20: Irritable. per nursing, frequency asking for items but then throws it away and ask for same item again. Showered. medication compliant. discussed increasing clozaril; pt agreed. Dose increased to 150mg PO bedtime. focused on wanting to pay his bill via cellphone. denies SI/HI/VH/AH. Patient educated on: diagnosis, medication risk/benefits and therapeutic strategies Reason for continued inpatient stay Substantial Risk for: med/psych decompensation Time Spent With Patient Time: Total time managing care of this patient today 20____ minutes.
[2024-10-20 08:55] LABS: MANUAL DIFF FLAG NO
[2024-10-20 08:58] LABS: Basophils Absolute Auto 0.1 X10*3/uL (0.0-0.2); Basophils Percent Auto 0.7 % (0-2); Eosinophils Absolute Auto 0.3 X10*3/uL (0.0-0.4); Eosinophils Percent Auto 3.6 % (0-4); Hematocrit 40.6 % (42.0-52.0); Imm Gran Abs Auto 0.04 X10*3/uL (0.00-0.03); Imm Gran Pct Auto 0.5 % (0.0-0.4); Lymphocytes Absolute Auto 2.1 X10*3/uL (1.2-4.9); Lymphocytes Percent Auto 24.3 % (20-40); Mean Corpuscular HGB Conc 34.5 g/dl (31.0-36.0); Mean Corpuscular Hemoglobin 31.4 pg (27.0-33.0); Mean Platelet Volume 9.7 fL (9.4-12.4); Monocytes Percent Auto 11.7 % (2-11); Neut%MD 59.2 %; Neutrophils Absolute Auto 5.2 x10*3/uL (2.0-8.3); Neutrophils Percent Auto 59.2 % (45-73); Platelet Count 302 X10*3/uL (160-400); Red Blood Count 4.46 X10*6/uL (4.60-5.80); Red Cell Distribution Width 12.7 % (11.0-16.0); WBCANC 8.7 X10*3/uL; White Blood Count 8.7 X10*3/uL (4.8-10.8)
[2024-10-20 20:00] VITALS: BP 138/73; PULSE 96; RESP 16; TEMP 36.6; O2SAT 96
[2024-10-20] MEDS: cloZAPine 100 MG, cloZAPine 50 MG 150 MG PO (20:11)
[2024-10-20] MEDS: Prazosin HCL 1 MG CAPSULE PO (20:12)
[2024-10-20] MEDS: risperiDONE 2 MG TABLET 4 MG PO (20:12)
[2024-10-21] MEDS: Cyanocobalamin (Vitamin B-12) 500 MCG TABLET PO (08:30)
[2024-10-21] MEDS: Mineral Oil/Petrolatum,White 106 GM Tube 1 APPL TOPICAL (08:32)
[2024-10-21 08:33] VITALS: BP 129/68; PULSE 116; RESP 16; TEMP 37.2; O2SAT 93
--- NOTE | 2024-10-21 13:45 | HO.PSYCHPN ---
Subjective Subjective Date of Service: 10/21/24 Reason For Visit: Depression/ Failure to Thrive Subjective Notes: Conditional Voluntary Interim History: Active on unit. keeping to self. calmer today. Patient denies side effects from increase in clozaril. pt stated, I'm doing good. I'm not worried about going home. I wish I wasn't so mean to my neighbor . Pt discussed apologizing to neighbor when he returns home. He reports sleeping well last night. denies hypersalivation; requesting Robinal to be DC'd. denies SI/HI/VH/AH. DC Robinal. Medication Compliance: Yes Side effects from medications: No Attending Groups: No Mental Status Exam Mental Status Exam Narrative: Pt is alert and oriented; behavior is cooperative, calm; dressed in casual attire; mood is described as good ; eye contact appropriate; Speech is normal rate, volume and not pressured; thought process is organized; Thought content is on discharge; denies SI/HI/VH/AH. Diagnostics Vital Signs (24Hr): Vital Signs - 24 hr 10/20/24 20:00 10/21/24 08:33 Temperature 97.8 F 98.9 F Pulse Rate 96 116 H Respiratory Rate 16 16 Blood Pressure 138/73 129/68 Pulse Oximetry 96 93 Oxygen Delivery Method Room Air Room Air BMI result Body Mass Index 18.0 Labs 10/20/24 08:13 10/10/24 16:49 Labs: Laboratory Results - last 48 hr 10/20/24 08:13 WBC 8.7 RBC 4.46 L Hgb 14.0 Hct 40.6 L MCV 91.0 MCH 31.4 MCHC 34.5 RDW 12.7 Plt Count 302 MPV 9.7 Immature Gran % (Auto) 0.5 H Neut % (Auto) 59.2 Lymph % (Auto) 24.3 Woods % (Auto) 11.7 H Eos % (Auto) 3.6 Baso % (Auto) 0.7 Lymph # (Auto) 2.1 Woods # (Auto) 1.0 Eos # (Auto) 0.3 Baso # (Auto) 0.1 Abs Immat Gran (auto) 0.04 H Absolute Neuts (auto) 5.2 Absolute Nucleated RBC 0.000 Nucleated RBC % (auto) 0.0 Medications Medications Current Medications Acetaminophen (Acetaminophen 325 Mg Tablet) 650 mg PO Q6H PRN PRN Reason: Headache/Pain, Scale 1-10 Al Hydroxide/Mg Hydroxide (Magnesium Hydrox/Alum Hydrox 30 Ml Oral.Susp) 30 ml PO Q6H PRN PRN Reason: Heartburn/Nausea Chlorpromazine HCl (Chlorpromazine Hcl 25 Mg Tablet) 25 mg PO Q6H PRN PRN Reason: agitation Clozapine 100 mg/ Clozapine 50 (mg) 150 mg PO BEDTIME [facility] Last Admin: 10/20/24 20:11 Dose: 150 mg Cyanocobalamin (Cyanocobalamin (Vitamin B-12) 500 Mcg Tablet) 500 mcg PO DAILY INDRA Last Admin: 10/21/24 08:30 Dose: 500 mcg Gabapentin (Gabapentin 100 Mg Capsule) 100 mg PO DAILY PRN PRN Reason: Anxiety Last Admin: 10/15/24 18:04 Dose: 100 mg Hydroxyzine HCl (Hydroxyzine Hcl 25 Mg Tablet) 25 mg PO Q6H PRN PRN Reason: mild anxiety Last Admin: 10/15/24 05:51 Dose: 25 mg Magnesium Hydroxide (Milk Of Magnesia 30 Ml Oral.Susp) 30 ml PO DAILY PRN PRN Reason: Constipation Multi-Ingred Cream/Lotion/Oil/Oint (Mineral Oil/Petrolatum,White 106 Gm Tube) 1 appl TOPICAL BID INDRA; Protocol Last Admin: 10/21/24 08:32 Dose: 1 appl Nicotine Polacrilex (Nicotine Polacrilex 2 Mg Gum) 4 mg BUCCAL Q2H PRN PRN Reason: Nicotine Cravings Prazosin HCl (Prazosin Hcl 1 Mg Capsule) 1 mg PO BEDTIME IN[facility]; Protocol Last Admin: 10/20/24 20:12 Dose: 1 mg Risperidone (Risperidone 2 Mg Tablet) 4 mg PO BEDTIME [facility] Last Admin: 10/20/24 20:12 Dose: 4 mg Thiamine HCl (Thiamine Hcl 100 Mg Tablet) 100 mg PO DAILY [facility] Last Admin: 10/21/24 08:33 Dose: Not Given Trazodone HCl (Trazodone Hcl 50 Mg Tablet) 50 mg PO BEDTIME MRX1 PRN PRN Reason: Insomnia Allergies Allergies Allergy/AdvReac Type Severity Reaction Status Date / Time aripiprazole [From ABILIFY] Allergy Severe TONGUE Verified 10/08/24 14:03 SWELLS, NAUSEA/VOMITING olanzapine [From ZYPREXA] AdvReac Unknown INVOLUNTARY Verified 10/08/24 14:03 SPASMS From ZOLOFT AdvReac Unknown KEY Uncoded 10/08/24 14:03 Assessment & Plan Assessment & Plan (1) Schizoaffective disorder: Status: Acute Code(s): F25.9 - Schizoaffective disorder, unspecified Plan Patient is a 38-year-old male with history of schizophrenia who presented to [facility] ER d/t paranoid behaviors secondary to medication non-compliance. Plan: CV 15 minute safety checks Continues home medications Restart clozapine 25mg PO daily with plan to increase obtain collateral dietitian consult encourage groups discharge planning 10/11/2024: No changes to current treatment plan. clozapine just restarted yesterday. Titrate clozapine as tolerated. Reports he will get lab work done tomorrow 10/12/24:Clozapine just started, check for cheeking 10/13: Increase Clozapine to 50 mg HS 10/14: Prazosin 1 mg HS-trial for nightmare mgt. Glycopyrrolate 0.5 mg bid trial for sialorrhea/resulting spitting in milieu. 10/15: Active on unit, keeping to self. Guarded. Patient reports feeling okay today; pt states he is not really worried about my neighbor anymore. I'm thinking about moving at some point but I plan on going back to my apartment when I leave here . denies SI/HI/VH/AH. denies excess salivating today; discussed increasing clozaril, pt agreed. Clozaril increased to 75mg PO bedtime. 10/16: calm, cooperative, pleasant. denies s/e from clozail 75 last night. increase to clozaril 100 tonight. 10/17: Active on unit. keeping to self. medication compliant. Patient reports feeling good but a little drowsy ; discussed medications.denies SI/HI/VH/AH. Change risperidal to bedtime. Decrease ativan to 0.5mg PO BID; with plan to taper off prior to discharge. Increase Clozaril to 125mg PO bedtime. 10/18: Active on unit. keeping to self. medication compliant. Patient reports feeling alright today; pt stated, I'm thinking about going back to my apartment. I need to get a job so I can buy myself a bike . future oriented. denies SI/HI/VH/AH. denies any side effects from medication adjustments. Continue current tx plan. 10/19: Patient continues to report feeling alright today; labs ordered for tomorrow morning. future oriented. denies SI/HI/VH/AH. per nursing, slept 8 hours last night. no paranoid or delusional statements made during assessment. Continue current tx plan. 10/20: Irritable. per nursing, frequency asking for items but then throws it away and ask for same item again. Showered. medication compliant. discussed increasing clozaril; pt agreed. Dose increased to 150mg PO bedtime. focused on wanting to pay his bill via cellphone. denies SI/HI/VH/AH. 10/21: Active on unit. keeping to self. calmer today. Patient denies side effects from increase in clozaril. pt stated, I'm doing good. I'm not worried about going home. I wish I wasn't so mean to my neighbor . Pt discussed apologizing to neighbor when he returns home. He reports sleeping well last night. denies hypersalivation; requesting Robinal to be DC'd. denies SI/HI/VH/AH. DC Robinal. Patient educated on: diagnosis, medication risk/benefits and therapeutic strategies Reason for continued inpatient stay Substantial Risk for: med/psych decompensation Time Spent With Patient Time: Total time managing care of this patient today _20___ minutes.
[2024-10-21 20:00] VITALS: BP 130/70; PULSE 98; RESP 16; TEMP 36.6; O2SAT 97
[2024-10-21] MEDS: cloZAPine 100 MG, cloZAPine 50 MG 150 MG PO (20:11)
[2024-10-21] MEDS: risperiDONE 2 MG TABLET 4 MG PO (20:12)
[2024-10-21] MEDS: Prazosin HCL 1 MG CAPSULE PO (20:13)
[2024-10-22 07:15] VITALS: BP 116/68; PULSE 88; RESP 14; TEMP 36.6; O2SAT 94
[2024-10-22] MEDS: Thiamine HCL 100 MG TABLET PO (08:22)
[2024-10-22] MEDS: Cyanocobalamin (Vitamin B-12) 500 MCG TABLET PO (08:22)
[2024-10-22 09:13] LABS: Neutrophils Absolute Auto 4.3 x10*3/uL (2.0-8.3); WBCANC 7.3 X10*3/uL
--- NOTE | 2024-10-22 15:50 | HO.PSYCHPN ---
Subjective Subjective Date of Service: 10/22/24 Reason For Visit: Depression/ Failure to Thrive Interim History: reports feeling stir crazy, does want to discharge tomorrow. concerned he might contract lymphoma from his neighbor. at the same time, feeling apprehensive and anxious about it, not sure if he is ready. encouraged to remain in the hospital on the basis that he is not yet adequately stabilized on medications. per staff, taking meds, changing clothes a lot, seeking food. restless. slept 8 hours. Mental Status Exam Mental Status Exam Narrative: Pt is alert and oriented; behavior is cooperative, calm; dressed in casual attire; mood is described as anxious; eye contact appropriate; Speech is normal rate, volume and not pressured; thought process is organized, some paranoia; Thought content is on discharging or not; no SI/HI/VH/AH expressed. Diagnostics Vital Signs (24Hr): Vital Signs - 24 hr 10/21/24 20:00 10/22/24 07:15 Temperature 97.9 F 97.8 F Pulse Rate 98 88 Respiratory Rate 16 14 Blood Pressure 130/70 116/68 Pulse Oximetry 97 94 Oxygen Delivery Method Room Air Room Air BMI result Body Mass Index 18.0 Labs 10/20/24 08:13 10/10/24 16:49 Labs: Laboratory Results - last 48 hr 10/22/24 08:53 Absolute Neuts (auto) 4.3 Medications Medications Current Medications Acetaminophen (Acetaminophen 325 Mg Tablet) 650 mg PO Q6H PRN PRN Reason: Headache/Pain, Scale 1-10 Al Hydroxide/Mg Hydroxide (Magnesium Hydrox/Alum Hydrox 30 Ml Oral.Susp) 30 ml PO Q6H PRN PRN Reason: Heartburn/Nausea Chlorpromazine HCl (Chlorpromazine Hcl 25 Mg Tablet) 25 mg PO Q6H PRN PRN Reason: agitation Clozapine 100 mg/ Clozapine 50 (mg) 150 mg PO BEDTIME INDRA Last Admin: 10/21/24 20:11 Dose: 150 mg Cyanocobalamin (Cyanocobalamin (Vitamin B-12) 500 Mcg Tablet) 500 mcg PO DAILY INDRA Last Admin: 10/22/24 08:22 Dose: 500 mcg Gabapentin (Gabapentin 100 Mg Capsule) 100 mg PO DAILY PRN PRN Reason: Anxiety Last Admin: 10/15/24 18:04 Dose: 100 mg Hydroxyzine HCl (Hydroxyzine Hcl 25 Mg Tablet) 25 mg PO Q6H PRN PRN Reason: mild anxiety Last Admin: 10/15/24 05:51 Dose: 25 mg Magnesium Hydroxide (Milk Of Magnesia 30 Ml Oral.Susp) 30 ml PO DAILY PRN PRN Reason: Constipation Multi-Ingred Cream/Lotion/Oil/Oint (Mineral Oil/Petrolatum,White 106 Gm Tube) 1 appl TOPICAL BID INDRA; Protocol Last Admin: 10/22/24 08:36 Dose: Not Given Nicotine Polacrilex (Nicotine Polacrilex 2 Mg Gum) 4 mg BUCCAL Q2H PRN PRN Reason: Nicotine Cravings Prazosin HCl (Prazosin Hcl 1 Mg Capsule) 1 mg PO BEDTIME INDRA; Protocol Last Admin: 10/21/24 20:13 Dose: 1 mg Risperidone (Risperidone 2 Mg Tablet) 4 mg PO BEDTIME INDRA Last Admin: 10/21/24 20:12 Dose: 4 mg Thiamine HCl (Thiamine Hcl 100 Mg Tablet) 100 mg PO DAILY INDRA Last Admin: 10/22/24 08:22 Dose: 100 mg Trazodone HCl (Trazodone Hcl 50 Mg Tablet) 50 mg PO BEDTIME MRX1 PRN PRN Reason: Insomnia Allergies Allergies Allergy/AdvReac Type Severity Reaction Status Date / Time aripiprazole [From ABILIFY] Allergy Severe TONGUE Verified 10/08/24 14:03 SWELLS, NAUSEA/VOMITING olanzapine [From ZYPREXA] AdvReac Unknown INVOLUNTARY Verified 10/08/24 14:03 SPASMS From ZOLOFT AdvReac Unknown KEY Uncoded 10/08/24 14:03 Assessment & Plan Assessment & Plan (1) Schizoaffective disorder: Status: Acute Code(s): F25.9 - Schizoaffective disorder, unspecified Plan Patient is a 38-year-old male with history of schizophrenia who presented to [facility] d/t paranoid behaviors secondary to medication non-compliance. Plan: CV 15 minute safety checks Continues home medications Restart clozapine 25mg PO daily with plan to increase obtain collateral dietitian consult encourage groups discharge planning 10/11/2024: No changes to current treatment plan. clozapine just restarted yesterday. Titrate clozapine as tolerated. Reports he will get lab work done tomorrow 10/12/24:Clozapine just started, check for cheeking 10/13: Increase Clozapine to 50 mg HS 10/14: Prazosin 1 mg HS-trial for nightmare mgt. Glycopyrrolate 0.5 mg bid trial for sialorrhea/resulting spitting in milieu. 10/15: Active on unit, keeping to self. Guarded. Patient reports feeling okay today; pt states he is not really worried about my neighbor anymore. I'm thinking about moving at some point but I plan on going back to my apartment when I leave here . denies SI/HI/VH/AH. denies excess salivating today; discussed increasing clozaril, pt agreed. Clozaril increased to 75mg PO bedtime. 10/16: calm, cooperative, pleasant. denies s/e from clozail 75 last night. increase to clozaril 100 tonight. 10/17: Active on unit. keeping to self. medication compliant. Patient reports feeling good but a little drowsy ; discussed medications.denies SI/HI/VH/AH. Change risperidal to bedtime. Decrease ativan to 0.5mg PO BID; with plan to taper off prior to discharge. Increase Clozaril to 125mg PO bedtime. 10/18: Active on unit. keeping to self. medication compliant. Patient reports feeling alright today; pt stated, I'm thinking about going back to my apartment. I need to get a job so I can buy myself a bike . future oriented. denies SI/HI/VH/AH. denies any side effects from medication adjustments. Continue current tx plan. 10/19: Patient continues to report feeling alright today; labs ordered for tomorrow morning. future oriented. denies SI/HI/VH/AH. per nursing, slept 8 hours last night. no paranoid or delusional statements made during assessment. Continue current tx plan. 10/20: Irritable. per nursing, frequency asking for items but then throws it away and ask for same item again. Showered. medication compliant. discussed increasing clozaril; pt agreed. Dose increased to 150mg PO bedtime. focused on wanting to pay his bill via cellphone. denies SI/HI/VH/AH. 10/21: Active on unit. keeping to self. calmer today. Patient denies side effects from increase in clozaril. pt stated, I'm doing good. I'm not worried about going home. I wish I wasn't so mean to my neighbor . Pt discussed apologizing to neighbor when he returns home. He reports sleeping well last night. denies hypersalivation; requesting Robinal to be DC'd. denies SI/HI/VH/AH. DC Dipti. 10/22: some paranoia re amaury lymphoma from his neighbor. musing on personal failings. anxious and ambivalent re discharge. encouraged to rethink discharge and remain in the hospital for more time to stabilize on medications. otherwise was planning to discharge tomorrow. Reason for continued inpatient stay Substantial Risk for: inability to function and rapid decompensation Time Spent With Patient Time: Total time managing care of this patient today _25___ minutes.
[2024-10-22 19:43] VITALS: BP 137/72; PULSE 73; RESP 16; TEMP 36.9; O2SAT 96
[2024-10-22] MEDS: Prazosin HCL 1 MG CAPSULE PO (20:09)
[2024-10-22] MEDS: risperiDONE 2 MG TABLET 4 MG PO (20:09)
[2024-10-22] MEDS: cloZAPine 100 MG, cloZAPine 50 MG 150 MG PO (20:09)
[2024-10-23 07:00] VITALS: BMI 19.2
[2024-10-23] MEDS: Thiamine HCL 100 MG TABLET PO (08:23)
[2024-10-23] MEDS: Cyanocobalamin (Vitamin B-12) 500 MCG TABLET PO (08:23)
[2024-10-23 08:48] LABS: Clozapine (Clozaril) 91 mcg/L; Norclozapine 55 mcg/L (25-400)
[2024-10-23 09:16] VITALS: BP 129/80
[2024-10-23] MEDS: diphenhydrAMINE HCL 25 MG CAPSULE 50 MG PO (10:48)
[2024-10-23] MEDS: LORazepam 1 MG TABLET 2 MG PO (10:48)
--- NOTE | 2024-10-23 15:16 | P.PNPSI_ITS ---
Subjective Subjective Date of Service: 10/23/24 Reason For Visit: Depression/ Failure to Thrive Subjective Notes: Conditional Voluntary Interim History: Agitated after being told he would not be discharged today due to not being stabilized psychiatrically. Offered 3 day notice; pt declined to sign. Patient became angry, gritting his teeth and yelling. Patient shouting at T/W and psychiatric social worker supervisor stating, You're a piece of shit liar! Both of you are pieces of shit who lie! Pt stood up, punched door of sensory room and proceeded to slam door shut behind him. Pt went up to psychiatric social worker supervisor as she was walking down the gaines, swung him arm and hit her clipboard. Staff intervened. Pt went to room. Ativan 2mg PO, Benadryl 50mg PO and Haldol 5mg PO were ordered; pt choose to take Ativan and Benadryl but declined Haldol. Risperidal increased to 5mg PO bedtime. Clozaril increased to 175mg PO bedtime. Awaiting medication list from [facility]. Medication Compliance: Yes Side effects from medications: No Attending Groups: No Mental Status Exam Mental Status Exam Narrative: Pt is alert and oriented; behavior is cooperative, calm; dressed in casual attire; mood is described as angry; eye contact appropriate; Speech is normal rate, loud volume and not pressured; thought process is organized, some paranoia; Thought content is on discharge; no SI/HI/VH/AH expressed. Diagnostics Vital Signs (24Hr): Vital Signs - 24 hr 10/22/24 19:43 10/23/24 09:16 Temperature 98.5 F Pulse Rate 73 Respiratory Rate 16 Blood Pressure 137/72 129/80 Pulse Oximetry 96 Oxygen Delivery Method Room Air BMI result Body Mass Index 19.2 Labs 10/20/24 08:13 10/10/24 16:49 Labs: Laboratory Results - last 48 hr 10/20/24 10/22/24 08:13 08:53 Absolute Neuts (auto) 4.3 Clozapine 91 Norclozapine 55 Medications Medications Current Medications Acetaminophen (Acetaminophen 325 Mg Tablet) 650 mg PO Q6H PRN PRN Reason: Headache/Pain, Scale 1-10 Al Hydroxide/Mg Hydroxide (Magnesium Hydrox/Alum Hydrox 30 Ml Oral.Susp) 30 ml PO Q6H PRN PRN Reason: Heartburn/Nausea Chlorpromazine HCl (Chlorpromazine Hcl 25 Mg Tablet) 25 mg PO Q6H PRN PRN Reason: agitation Clozapine (Clozapine 25 Mg Tablet) 175 mg PO BEDTIME INDRA Cyanocobalamin (Cyanocobalamin (Vitamin B-12) 500 Mcg Tablet) 500 mcg PO DAILY INDRA Last Admin: 10/23/24 08:23 Dose: 500 mcg Gabapentin (Gabapentin 100 Mg Capsule) 100 mg PO DAILY PRN PRN Reason: Anxiety Last Admin: 10/15/24 18:04 Dose: 100 mg Hydroxyzine HCl (Hydroxyzine Hcl 25 Mg Tablet) 25 mg PO Q6H PRN PRN Reason: mild anxiety Last Admin: 10/15/24 05:51 Dose: 25 mg Magnesium Hydroxide (Milk Of Magnesia 30 Ml Oral.Susp) 30 ml PO DAILY PRN PRN Reason: Constipation Multi-Ingred Cream/Lotion/Oil/Oint (Mineral Oil/Petrolatum,White 106 Gm Tube) 1 appl TOPICAL BID PRN; Protocol PRN Reason: Dry Skin Nicotine Polacrilex (Nicotine Polacrilex 2 Mg Gum) 4 mg BUCCAL Q2H PRN PRN Reason: Nicotine Cravings Prazosin HCl (Prazosin Hcl 1 Mg Capsule) 1 mg PO BEDTIME INDRA; Protocol Last Admin: 10/22/24 20:09 Dose: 1 mg Risperidone (Risperidone 1 Mg Tablet) 5 mg PO BEDTIME INDRA Thiamine HCl (Thiamine Hcl 100 Mg Tablet) 100 mg PO DAILY INDRA Last Admin: 10/23/24 08:23 Dose: 100 mg Trazodone HCl (Trazodone Hcl 50 Mg Tablet) 50 mg PO BEDTIME MRX1 PRN PRN Reason: Insomnia Allergies Allergies Allergy/AdvReac Type Severity Reaction Status Date / Time aripiprazole [From ABILIFY] Allergy Severe TONGUE Verified 10/08/24 14:03 SWELLS, NAUSEA/VOMITING olanzapine [From ZYPREXA] AdvReac Unknown INVOLUNTARY Verified 10/08/24 14:03 SPASMS From ZOLOFT AdvReac Unknown KEY Uncoded 10/08/24 14:03 Assessment & Plan Assessment & Plan (1) Schizoaffective disorder: Status: Acute Code(s): F25.9 - Schizoaffective disorder, unspecified Plan Patient is a 38-year-old male with history of schizophrenia who presented to [facility] ER d/t paranoid behaviors secondary to medication non-compliance. Plan: CV 15 minute safety checks Continues home medications Restart clozapine 25mg PO daily with plan to increase obtain collateral dietitian consult encourage groups discharge planning 10/11/2024: No changes to current treatment plan. clozapine just restarted yesterday. Titrate clozapine as tolerated. Reports he will get lab work done tomorrow 10/12/24:Clozapine just started, check for cheeking 10/13: Increase Clozapine to 50 mg HS 10/14: Prazosin 1 mg HS-trial for nightmare mgt. Glycopyrrolate 0.5 mg bid trial for sialorrhea/resulting spitting in milieu. 10/15: Active on unit, keeping to self. Guarded. Patient reports feeling okay today; pt states he is not really worried about my neighbor anymore. I'm thinking about moving at some point but I plan on going back to my apartment when I leave here . denies SI/HI/VH/AH. denies excess salivating today; discussed increasing clozaril, pt agreed. Clozaril increased to 75mg PO bedtime. 10/16: calm, cooperative, pleasant. denies s/e from clozail 75 last night. increase to clozaril 100 tonight. 10/17: Active on unit. keeping to self. medication compliant. Patient reports feeling good but a little drowsy ; discussed medications.denies SI/HI/VH/AH. Change risperidal to bedtime. Decrease ativan to 0.5mg PO BID; with plan to taper off prior to discharge. Increase Clozaril to 125mg PO bedtime. 10/18: Active on unit. keeping to self. medication compliant. Patient reports feeling alright today; pt stated, I'm thinking about going back to my apartment. I need to get a job so I can buy myself a bike . future oriented. denies SI/HI/VH/AH. denies any side effects from medication adjustments. Continue current tx plan. 10/19: Patient continues to report feeling alright today; labs ordered for tomorrow morning. future oriented. denies SI/HI/VH/AH. per nursing, slept 8 hours last night. no paranoid or delusional statements made during assessment. Continue current tx plan. 10/20: Irritable. per nursing, frequency asking for items but then throws it away and ask for same item again. Showered. medication compliant. discussed increasing clozaril; pt agreed. Dose increased to 150mg PO bedtime. focused on wanting to pay his bill via cellphone. denies SI/HI/VH/AH. 10/21: Active on unit. keeping to self. calmer today. Patient denies side effects from increase in clozaril. pt stated, I'm doing good. I'm not worried about going home. I wish I wasn't so mean to my neighbor . Pt discussed apologizing to neighbor when he returns home. He reports sleeping well last night. denies hypersalivation; requesting Robinal to be DC'd. denies SI/HI/VH/AH. DC Robinal. 10/22: some paranoia re amaury lymphoma from his neighbor. musing on personal failings. anxious and ambivalent re discharge. encouraged to rethink discharge and remain in the hospital for more time to stabilize on medications. otherwise was planning to discharge tomorrow. 10/23: Agitated after being told he would not be discharged today due to not being stabilized psychiatrically. Offered 3 day notice; pt declined to sign. Patient became angry, gritting his teeth and yelling. Patient shouting at T/W and psychiatric social worker supervisor stating, You're a piece of shit liar! Both of you are pieces of shit who lie! Pt stood up, punched door of sensory room and proceeded to slam door shut behind him. Pt went up to psychiatric social worker supervisor as she was walking down the gaines, swung him arm and hit her clipboard. Staff intervened. Pt went to room. Ativan 2mg PO, Benadryl 50mg PO and Haldol 5mg PO were ordered; pt choose to take Ativan and Benadryl but declined Haldol. Risperidal increased to 5mg PO bedtime. Clozaril increased to 175mg PO bedtime. Awaiting medication list from [place] [facility]. Patient educated on: diagnosis and medication risk/benefits Reason for continued inpatient stay Substantial Risk for: med/psych decompensation Time Spent With Patient Time: Total time managing care of this patient today _20___ minutes.
[2024-10-23 20:00] VITALS: BP 135/75; PULSE 91; RESP 14; TEMP 37.2; O2SAT 97
[2024-10-23] MEDS: Prazosin HCL 1 MG CAPSULE PO (20:12)
[2024-10-23] MEDS: risperiDONE 1 MG TABLET 5 MG PO (20:12)
[2024-10-23] MEDS: cloZAPine 25 MG TABLET 175 MG PO (20:13)
[2024-10-24 07:58] VITALS: BP 117/70; PULSE 84; TEMP 36.3; O2SAT 92
[2024-10-24] MEDS: Thiamine HCL 100 MG TABLET PO (08:25)
[2024-10-24] MEDS: Cyanocobalamin (Vitamin B-12) 500 MCG TABLET PO (08:25)
--- NOTE | 2024-10-24 09:35 | P.PNPSI_ITS ---
Subjective Subjective Date of Service: 10/24/24 Reason For Visit: Depression/ Failure to Thrive Subjective Notes: Conditional Voluntary Interim History: Calmer today. Apologized for behavior yesterday. Patient reports he spoke to his [facility] case supervisor and would like to go to respite after discharge. Pt stated he would like to move from his apartment d/t not wanting to live next door to someone who has cancer and won't help themselves. I felt ill being next to him. It might have been my OCD, I don't know . denies side effects from increase in medication. per nursing, slept 8 hours. ? if patient is cheeking medications; will start mouth checks with medications administration. Plan to continue to increase clozaril. Medication Compliance: Yes Side effects from medications: No Attending Groups: No Mental Status Exam Mental Status Exam Narrative: Pt is alert and oriented; behavior is cooperative, calm; dressed in casual attire; mood is described as okay ; eye contact appropriate; Speech is normal rate, volume and not pressured; thought process is organized, some paranoia regarding neighbor; Thought content is on discharge; denies SI/HI/VH/AH. Diagnostics Vital Signs (24Hr): Vital Signs - 24 hr 10/23/24 20:00 10/24/24 07:58 Temperature 98.9 F 97.3 F Pulse Rate 91 84 Respiratory Rate 14 Blood Pressure 135/75 117/70 Pulse Oximetry 97 92 Oxygen Delivery Method Room Air BMI result Body Mass Index 19.2 Labs 10/20/24 08:13 10/10/24 16:49 Labs: Laboratory Results - last 48 hr 10/20/24 08:13 Clozapine 91 Norclozapine 55 Medications Medications Current Medications Acetaminophen (Acetaminophen 325 Mg Tablet) 650 mg PO Q6H PRN PRN Reason: Headache/Pain, Scale 1-10 Al Hydroxide/Mg Hydroxide (Magnesium Hydrox/Alum Hydrox 30 Ml Oral.Susp) 30 ml PO Q6H PRN PRN Reason: Heartburn/Nausea Chlorpromazine HCl (Chlorpromazine Hcl 25 Mg Tablet) 25 mg PO Q6H PRN PRN Reason: agitation Clozapine (Clozapine 25 Mg Tablet) 175 mg PO BEDTIME [facility] Last Admin: 10/23/24 20:13 Dose: 175 mg Cyanocobalamin (Cyanocobalamin (Vitamin B-12) 500 Mcg Tablet) 500 mcg PO DAILY [facility] Last Admin: 10/24/24 08:25 Dose: 500 mcg Gabapentin (Gabapentin 100 Mg Capsule) 100 mg PO DAILY PRN PRN Reason: Anxiety Last Admin: 10/15/24 18:04 Dose: 100 mg Hydroxyzine HCl (Hydroxyzine Hcl 25 Mg Tablet) 25 mg PO Q6H PRN PRN Reason: mild anxiety Last Admin: 10/15/24 05:51 Dose: 25 mg Magnesium Hydroxide (Milk Of Magnesia 30 Ml Oral.Susp) 30 ml PO DAILY PRN PRN Reason: Constipation Multi-Ingred Cream/Lotion/Oil/Oint (Mineral Oil/Petrolatum,White 106 Gm Tube) 1 appl TOPICAL BID PRN; Protocol PRN Reason: Dry Skin Nicotine Polacrilex (Nicotine Polacrilex 2 Mg Gum) 4 mg BUCCAL Q2H PRN PRN Reason: Nicotine Cravings Prazosin HCl (Prazosin Hcl 1 Mg Capsule) 1 mg PO BEDTIME INDRA; Protocol Last Admin: 10/23/24 20:12 Dose: 1 mg Risperidone (Risperidone 1 Mg Tablet) 5 mg PO BEDTIME INDRA Last Admin: 10/23/24 20:12 Dose: 5 mg Thiamine HCl (Thiamine Hcl 100 Mg Tablet) 100 mg PO DAILY INDRA Last Admin: 10/24/24 08:25 Dose: 100 mg Trazodone HCl (Trazodone Hcl 50 Mg Tablet) 50 mg PO BEDTIME MRX1 PRN PRN Reason: Insomnia Allergies Allergies Allergy/AdvReac Type Severity Reaction Status Date / Time aripiprazole [From ABILIFY] Allergy Severe TONGUE Verified 10/08/24 14:03 SWELLS, NAUSEA/VOMITING olanzapine [From ZYPREXA] AdvReac Unknown INVOLUNTARY Verified 10/08/24 14:03 SPASMS From ZOLOFT AdvReac Unknown KEY Uncoded 10/08/24 14:03 Assessment & Plan Assessment & Plan (1) Schizoaffective disorder: Status: Acute Code(s): F25.9 - Schizoaffective disorder, unspecified Plan Patient is a 38-year-old male with history of schizophrenia who presented to [facility] d/t paranoid behaviors secondary to medication non-compliance. Plan: CV 15 minute safety checks Continues home medications Restart clozapine 25mg PO daily with plan to increase obtain collateral dietitian consult encourage groups discharge planning 10/11/2024: No changes to current treatment plan. clozapine just restarted yesterday. Titrate clozapine as tolerated. Reports he will get lab work done tomorrow 10/12/24:Clozapine just started, check for cheeking 10/13: Increase Clozapine to 50 mg HS 10/14: Prazosin 1 mg HS-trial for nightmare mgt. Glycopyrrolate 0.5 mg bid trial for sialorrhea/resulting spitting in milieu. 10/15: Active on unit, keeping to self. Guarded. Patient reports feeling okay today; pt states he is not really worried about my neighbor anymore. I'm thinking about moving at some point but I plan on going back to my apartment when I leave here . denies SI/HI/VH/AH. denies excess salivating today; discussed increasing clozaril, pt agreed. Clozaril increased to 75mg PO bedtime. 10/16: calm, cooperative, pleasant. denies s/e from clozail 75 last night. increase to clozaril 100 tonight. 10/17: Active on unit. keeping to self. medication compliant. Patient reports feeling good but a little drowsy ; discussed medications.denies SI/HI/VH/AH. Change risperidal to bedtime. Decrease ativan to 0.5mg PO BID; with plan to taper off prior to discharge. Increase Clozaril to 125mg PO bedtime. 10/18: Active on unit. keeping to self. medication compliant. Patient reports feeling alright today; pt stated, I'm thinking about going back to my apartment. I need to get a job so I can buy myself a bike . future oriented. denies SI/HI/VH/AH. denies any side effects from medication adjustments. Continue current tx plan. 10/19: Patient continues to report feeling alright today; labs ordered for tomorrow morning. future oriented. denies SI/HI/VH/AH. per nursing, slept 8 hours last night. no paranoid or delusional statements made during assessment. Continue current tx plan. 10/20: Irritable. per nursing, frequency asking for items but then throws it away and ask for same item again. Showered. medication compliant. discussed increasing clozaril; pt agreed. Dose increased to 150mg PO bedtime. focused on wanting to pay his bill via cellphone. denies SI/HI/VH/AH. 10/21: Active on unit. keeping to self. calmer today. Patient denies side effects from increase in clozaril. pt stated, I'm doing good. I'm not worried about going home. I wish I wasn't so mean to my neighbor . Pt discussed apologizing to neighbor when he returns home. He reports sleeping well last night. denies hypersalivation; requesting Robinal to be DC'd. denies SI/HI/VH/AH. DC Robinal. 10/22: some paranoia re amaury lymphoma from his neighbor. musing on personal failings. anxious and ambivalent re discharge. encouraged to rethink discharge and remain in the hospital for more time to stabilize on medications. otherwise was planning to discharge tomorrow. 10/23: Agitated after being told he would not be discharged today due to not being stabilized psychiatrically. Offered 3 day notice; pt declined to sign. Patient became angry, gritting his teeth and yelling. Patient shouting at T/W and social sciences lecturer stating, You're a piece of shit liar! Both of you are pieces of shit who lie! Pt stood up, punched door of sensory room and proceeded to slam door shut behind him. Pt went up to social sciences lecturer as she was walking down the gaines, swung him arm and hit her clipboard. Staff intervened. Pt went to room. Ativan 2mg PO, Benadryl 50mg PO and Haldol 5mg PO were ordered; pt choose to take Ativan and Benadryl but declined Haldol. Risperidal increased to 5mg PO bedtime. Clozaril increased to 175mg PO bedtime. Awaiting medication list from [place] pharmacy. 10/24: Calmer today. Apologized for behavior yesterday. Patient reports he spoke to his [facility] case supervisor and would like to go to respite after discharge. Pt stated he would like to move from his apartment d/t not wanting to live next door to someone who has cancer and won't help themselves. I felt ill being next to him. It might have been my OCD, I don't know . denies side effects from increase in medication. per nursing, slept 8 hours. ? if patient is cheeking medications; will start mouth checks with medications administration. Plan to continue to increase clozaril. Patient educated on: diagnosis, medication risk/benefits and therapeutic strategies Reason for continued inpatient stay Substantial Risk for: med/psych decompensation Time Spent With Patient Time: Total time managing care of this patient today _20___ minutes.
[2024-10-24] MEDS: Mineral Oil/Petrolatum,White 106 GM Tube 1 APPL TOPICAL (13:05)
[2024-10-24 20:00] VITALS: BP 127/82; PULSE 98; RESP 15; TEMP 36.9; O2SAT 95
[2024-10-24 20:50] VITALS: BP 127/82
[2024-10-24] MEDS: Prazosin HCL 1 MG CAPSULE PO (20:50)
[2024-10-24] MEDS: risperiDONE 1 MG TABLET 5 MG PO (20:51)
[2024-10-24] MEDS: cloZAPine 25 MG TABLET 175 MG PO (20:51)
[2024-10-25 08:07] VITALS: BP 127/57; PULSE 109; RESP 14; TEMP 36.9; O2SAT 96
--- NOTE | 2024-10-25 10:30 | P.PNPSI_ITS ---
Subjective Subjective Date of Service: 10/25/24 Reason For Visit: Depression/ Failure to Thrive Subjective Notes: Conditional Voluntary Interim History: Pt in bed. He reports he is not able to return to his house and now is homeless. He denies SI/HI. No overt psychosis or delusional symptoms noted or reported. He reports he is worried about current housing situation. He is taking medications as prescribed. No behavioral concerns. Review of Systems Review of Systems sialorrhea Yes all other systems are reviewed and are negative Mental Status Exam Mental Status Exam Narrative: Pt is alert and oriented; behavior is cooperative, calm; dressed in casual attire; mood is described as okay ; eye contact appropriate; Speech is normal rate, volume and not pressured; thought process is organized, some paranoia regarding neighbor; Thought content is on discharge; denies SI/HI/VH/AH. Diagnostics Vital Signs (24Hr): Vital Signs - 24 hr 10/24/24 20:00 10/24/24 20:50 10/25/24 08:07 Temperature 98.4 F 98.4 F Pulse Rate 98 109 H Respiratory Rate 15 14 Blood Pressure 127/82 127/82 127/57 L Pulse Oximetry 95 96 Oxygen Delivery Method Room Air Room Air BMI result Body Mass Index 19.2 Labs 10/20/24 08:13 10/10/24 16:49 Medications Medications Current Medications Acetaminophen (Acetaminophen 325 Mg Tablet) 650 mg PO Q6H PRN PRN Reason: Headache/Pain, Scale 1-10 Al Hydroxide/Mg Hydroxide (Magnesium Hydrox/Alum Hydrox 30 Ml Oral.Susp) 30 ml PO Q6H PRN PRN Reason: Heartburn/Nausea Chlorpromazine HCl (Chlorpromazine Hcl 25 Mg Tablet) 25 mg PO Q6H PRN PRN Reason: agitation Clozapine (Clozapine 25 Mg Tablet) 175 mg PO BEDTIME INDRA Last Admin: 10/24/24 20:51 Dose: 175 mg Cyanocobalamin (Cyanocobalamin (Vitamin B-12) 500 Mcg Tablet) 500 mcg PO DAILY INDRA Last Admin: 10/25/24 09:00 Dose: Not Given Gabapentin (Gabapentin 100 Mg Capsule) 100 mg PO DAILY PRN PRN Reason: Anxiety Last Admin: 10/15/24 18:04 Dose: 100 mg Hydroxyzine HCl (Hydroxyzine Hcl 25 Mg Tablet) 25 mg PO Q6H PRN PRN Reason: mild anxiety Last Admin: 10/15/24 05:51 Dose: 25 mg Magnesium Hydroxide (Milk Of Magnesia 30 Ml Oral.Susp) 30 ml PO DAILY PRN PRN Reason: Constipation Multi-Ingred Cream/Lotion/Oil/Oint (Mineral Oil/Petrolatum,White 106 Gm Tube) 1 appl TOPICAL BID PRN; Protocol PRN Reason: Dry Skin Last Admin: 10/24/24 13:05 Dose: 1 appl Nicotine Polacrilex (Nicotine Polacrilex 2 Mg Gum) 4 mg BUCCAL Q2H PRN PRN Reason: Nicotine Cravings Prazosin HCl (Prazosin Hcl 1 Mg Capsule) 1 mg PO BEDTIME INDRA; Protocol Last Admin: 10/24/24 20:50 Dose: 1 mg Risperidone (Risperidone 1 Mg Tablet) 5 mg PO BEDTIME INDRA Last Admin: 10/24/24 20:51 Dose: 5 mg Thiamine HCl (Thiamine Hcl 100 Mg Tablet) 100 mg PO DAILY INDRA Last Admin: 10/25/24 09:00 Dose: Not Given Trazodone HCl (Trazodone Hcl 50 Mg Tablet) 50 mg PO BEDTIME MRX1 PRN PRN Reason: Insomnia Allergies Allergies Allergy/AdvReac Type Severity Reaction Status Date / Time aripiprazole [From ABILIFY] Allergy Severe TONGUE Verified 10/08/24 14:03 SWELLS, NAUSEA/VOMITING olanzapine [From ZYPREXA] AdvReac Unknown INVOLUNTARY Verified 10/08/24 14:03 SPASMS lurasidone AdvReac Unknown Verified 10/24/24 15:28 Penicillins AdvReac Unknown Verified 10/24/24 15:28 sertraline AdvReac Unknown Verified 10/24/24 15:28 From ZOLOFT AdvReac Unknown KEY Uncoded 10/08/24 14:03 Assessment & Plan Assessment & Plan (1) Schizoaffective disorder: Status: Acute Code(s): F25.9 - Schizoaffective disorder, unspecified Plan Patient is a 38-year-old male with history of schizophrenia who presented to [facility] d/t paranoid behaviors secondary to medication non-compliance. Plan: CV 15 minute safety checks Continues home medications Restart clozapine 25mg PO daily with plan to increase obtain collateral dietitian consult encourage groups discharge planning 10/11/2024: No changes to current treatment plan. clozapine just restarted yesterday. Titrate clozapine as tolerated. Reports he will get lab work done tomorrow 10/12/24:Clozapine just started, check for cheeking 10/13: Increase Clozapine to 50 mg HS 10/14: Prazosin 1 mg HS-trial for nightmare mgt. Glycopyrrolate 0.5 mg bid trial for sialorrhea/resulting spitting in milieu. 10/15: Active on unit, keeping to self. Guarded. Patient reports feeling okay today; pt states he is not really worried about my neighbor anymore. I'm thinking about moving at some point but I plan on going back to my apartment when I leave here . denies SI/HI/VH/AH. denies excess salivating today; discussed increasing clozaril, pt agreed. Clozaril increased to 75mg PO bedtime. 10/16: calm, cooperative, pleasant. denies s/e from clozail 75 last night. increase to clozaril 100 tonight. 10/17: Active on unit. keeping to self. medication compliant. Patient reports feeling good but a little drowsy ; discussed medications.denies SI/HI/VH/AH. Change risperidal to bedtime. Decrease ativan to 0.5mg PO BID; with plan to taper off prior to discharge. Increase Clozaril to 125mg PO bedtime. 10/18: Active on unit. keeping to self. medication compliant. Patient reports feeling alright today; pt stated, I'm thinking about going back to my apartment. I need to get a job so I can buy myself a bike . future oriented. denies SI/HI/VH/AH. denies any side effects from medication adjustments. Continue current tx plan. 10/19: Patient continues to report feeling alright today; labs ordered for tomorrow morning. future oriented. denies SI/HI/VH/AH. per nursing, slept 8 hours last night. no paranoid or delusional statements made during assessment. Continue current tx plan. 10/20: Irritable. per nursing, frequency asking for items but then throws it away and ask for same item again. Showered. medication compliant. discussed increasing clozaril; pt agreed. Dose increased to 150mg PO bedtime. focused on wanting to pay his bill via cellphone. denies SI/HI/VH/AH. 10/21: Active on unit. keeping to self. calmer today. Patient denies side effects from increase in clozaril. pt stated, I'm doing good. I'm not worried about going home. I wish I wasn't so mean to my neighbor . Pt discussed apologizing to neighbor when he returns home. He reports sleeping well last night. denies hypersalivation; requesting Robinal to be DC'd. denies SI/HI/VH/AH. DC Robinal. 10/22: some paranoia re amaury lymphoma from his neighbor. musing on personal failings. anxious and ambivalent re discharge. encouraged to rethink discharge and remain in the hospital for more time to stabilize on medications. otherwise was planning to discharge tomorrow. 10/23: Agitated after being told he would not be discharged today due to not being stabilized psychiatrically. Offered 3 day notice; pt declined to sign. Patient became angry, gritting his teeth and yelling. Patient shouting at T/W and social work professor stating, You're a piece of shit liar! Both of you are pieces of shit who lie! Pt stood up, punched door of sensory room and proceeded to slam door shut behind him. Pt went up to social work professor as she was walking down the gaines, swung him arm and hit her clipboard. Staff intervened. Pt went to room. Ativan 2mg PO, Benadryl 50mg PO and Haldol 5mg PO were ordered; pt choose to take Ativan and Benadryl but declined Haldol. Risperidal increased to 5mg PO bedtime. Clozaril increased to 175mg PO bedtime. Awaiting medication list from [place] pharmacy. 10/24: Calmer today. Apologized for behavior yesterday. Patient reports he spoke to his [facility] case technician and would like to go to respite after discharge. Pt stated he would like to move from his apartment d/t not wanting to live next door to someone who has cancer and won't help themselves. I felt ill being next to him. It might have been my OCD, I don't know . denies side effects from increase in medication. per nursing, slept 8 hours. ? if patient is cheeking medications; will start mouth checks with medications administration. Plan to continue to increase clozaril. 10/25 continue tx. Reason for continued inpatient stay Substantial Risk for: inability to function Time Spent With Patient Time: Total time managing care of this patient today ____ minutes.
[2024-10-25 20:00] VITALS: BP 134/62; PULSE 95; RESP 18; TEMP 36.9; O2SAT 97
[2024-10-25 20:13] VITALS: BP 136/86
[2024-10-25] MEDS: Prazosin HCL 1 MG CAPSULE PO (20:13)
[2024-10-25] MEDS: cloZAPine 100 MG, cloZAPine 75 MG 175 MG PO (20:13)
[2024-10-25] MEDS: RISPERIDONE 5 MG PO (20:19)
[2024-10-26 08:00] VITALS: RESP 16
[2024-10-26] MEDS: Cyanocobalamin (Vitamin B-12) 500 MCG TABLET PO (08:39)
[2024-10-26] MEDS: Thiamine HCL 100 MG TABLET PO (08:39)
[2024-10-26 20:10] VITALS: BP 110/70; PULSE 95; RESP 18; TEMP 36.8; O2SAT 96
[2024-10-26] MEDS: RISPERIDONE 5 MG PO (20:16)
[2024-10-26] MEDS: Prazosin HCL 1 MG CAPSULE PO (20:17)
[2024-10-26] MEDS: cloZAPine 100 MG, cloZAPine 75 MG 175 MG PO (20:17)
--- NOTE | 2024-10-26 21:49 | HO.PSYCHPN ---
Subjective Subjective Date of Service: 10/26/24 Reason For Visit: Depression/ Failure to Thrive Subjective Notes: Conditional Voluntary Interim History: Pt in bed. He reports he made some calls to shelters, looking into places he can stay at. He denies SI/HI. Taking medications. No behavioral concerns. Review of Systems Review of Systems sialorrhea Yes all other systems are reviewed and are negative Mental Status Exam Mental Status Exam Narrative: Pt is alert and oriented; behavior is cooperative, calm; dressed in casual attire; mood is described as okay ; eye contact appropriate; Speech is normal rate, volume and not pressured; thought process is organized, some paranoia regarding neighbor; Thought content is on discharge; denies SI/HI/VH/AH. Diagnostics Vital Signs (24Hr): Vital Signs - 24 hr 10/26/24 08:00 10/26/24 20:10 Temperature 98.2 F Pulse Rate 95 Respiratory Rate 16 18 Blood Pressure 110/70 Pulse Oximetry 96 Oxygen Delivery Method Room Air BMI result Body Mass Index 19.2 Labs 10/20/24 08:13 10/10/24 16:49 Medications Medications Current Medications Acetaminophen (Acetaminophen 325 Mg Tablet) 650 mg PO Q6H PRN PRN Reason: Headache/Pain, Scale 1-10 Al Hydroxide/Mg Hydroxide (Magnesium Hydrox/Alum Hydrox 30 Ml Oral.Susp) 30 ml PO Q6H PRN PRN Reason: Heartburn/Nausea Chlorpromazine HCl (Chlorpromazine Hcl 25 Mg Tablet) 25 mg PO Q6H PRN PRN Reason: agitation Clozapine 100 mg/ Clozapine 75 (mg) 175 mg PO BEDTIME [facility] Last Admin: 10/26/24 20:17 Dose: 175 mg Cyanocobalamin (Cyanocobalamin (Vitamin B-12) 500 Mcg Tablet) 500 mcg PO DAILY INDRA Last Admin: 10/26/24 08:39 Dose: 500 mcg Gabapentin (Gabapentin 100 Mg Capsule) 100 mg PO DAILY PRN PRN Reason: Anxiety Last Admin: 10/15/24 18:04 Dose: 100 mg Hydroxyzine HCl (Hydroxyzine Hcl 25 Mg Tablet) 25 mg PO Q6H PRN PRN Reason: mild anxiety Last Admin: 10/15/24 05:51 Dose: 25 mg Magnesium Hydroxide (Milk Of Magnesia 30 Ml Oral.Susp) 30 ml PO DAILY PRN PRN Reason: Constipation Multi-Ingred Cream/Lotion/Oil/Oint (Mineral Oil/Petrolatum,White 106 Gm Tube) 1 appl TOPICAL BID PRN; Protocol PRN Reason: Dry Skin Last Admin: 10/24/24 13:05 Dose: 1 appl Nicotine Polacrilex (Nicotine Polacrilex 2 Mg Gum) 4 mg BUCCAL Q2H PRN PRN Reason: Nicotine Cravings Prazosin HCl (Prazosin Hcl 1 Mg Capsule) 1 mg PO BEDTIME INDRA; Protocol Last Admin: 10/26/24 20:17 Dose: 1 mg Risperidone 3 mg/ Risperidone (2 mg) 5 mg PO BEDTIME INDRA Last Admin: 10/26/24 20:16 Dose: 5 mg Thiamine HCl (Thiamine Hcl 100 Mg Tablet) 100 mg PO DAILY INDRA Last Admin: 10/26/24 08:39 Dose: 100 mg Trazodone HCl (Trazodone Hcl 50 Mg Tablet) 50 mg PO BEDTIME MRX1 PRN PRN Reason: Insomnia Allergies Allergies Allergy/AdvReac Type Severity Reaction Status Date / Time aripiprazole [From ABILIFY] Allergy Severe TONGUE Verified 10/08/24 14:03 SWELLS, NAUSEA/VOMITING olanzapine [From ZYPREXA] AdvReac Unknown INVOLUNTARY Verified 10/08/24 14:03 SPASMS lurasidone AdvReac Unknown Verified 10/24/24 15:28 Penicillins AdvReac Unknown Verified 10/24/24 15:28 sertraline AdvReac Unknown Verified 10/24/24 15:28 From ZOLOFT AdvReac Unknown KEY Uncoded 10/08/24 14:03 Assessment & Plan Assessment & Plan (1) Schizoaffective disorder: Status: Acute Code(s): F25.9 - Schizoaffective disorder, unspecified Plan Patient is a 38-year-old male with history of schizophrenia who presented to [facility] d/t paranoid behaviors secondary to medication non-compliance. Plan: CV 15 minute safety checks Continues home medications Restart clozapine 25mg PO daily with plan to increase obtain collateral dietitian consult encourage groups discharge planning 10/11/2024: No changes to current treatment plan. clozapine just restarted yesterday. Titrate clozapine as tolerated. Reports he will get lab work done tomorrow 10/12/24:Clozapine just started, check for cheeking 10/13: Increase Clozapine to 50 mg HS 10/14: Prazosin 1 mg HS-trial for nightmare mgt. Glycopyrrolate 0.5 mg bid trial for sialorrhea/resulting spitting in milieu. 10/15: Active on unit, keeping to self. Guarded. Patient reports feeling okay today; pt states he is not really worried about my neighbor anymore. I'm thinking about moving at some point but I plan on going back to my apartment when I leave here . denies SI/HI/VH/AH. denies excess salivating today; discussed increasing clozaril, pt agreed. Clozaril increased to 75mg PO bedtime. 10/16: calm, cooperative, pleasant. denies s/e from clozail 75 last night. increase to clozaril 100 tonight. 10/17: Active on unit. keeping to self. medication compliant. Patient reports feeling good but a little drowsy ; discussed medications.denies SI/HI/VH/AH. Change risperidal to bedtime. Decrease ativan to 0.5mg PO BID; with plan to taper off prior to discharge. Increase Clozaril to 125mg PO bedtime. 10/18: Active on unit. keeping to self. medication compliant. Patient reports feeling alright today; pt stated, I'm thinking about going back to my apartment. I need to get a job so I can buy myself a bike . future oriented. denies SI/HI/VH/AH. denies any side effects from medication adjustments. Continue current tx plan. 10/19: Patient continues to report feeling alright today; labs ordered for tomorrow morning. future oriented. denies SI/HI/VH/AH. per nursing, slept 8 hours last night. no paranoid or delusional statements made during assessment. Continue current tx plan. 10/20: Irritable. per nursing, frequency asking for items but then throws it away and ask for same item again. Showered. medication compliant. discussed increasing clozaril; pt agreed. Dose increased to 150mg PO bedtime. focused on wanting to pay his bill via cellphone. denies SI/HI/VH/AH. 10/21: Active on unit. keeping to self. calmer today. Patient denies side effects from increase in clozaril. pt stated, I'm doing good. I'm not worried about going home. I wish I wasn't so mean to my neighbor . Pt discussed apologizing to neighbor when he returns home. He reports sleeping well last night. denies hypersalivation; requesting Robinal to be DC'd. denies SI/HI/VH/AH. DC Robinal. 10/22: some paranoia re amaury lymphoma from his neighbor. musing on personal failings. anxious and ambivalent re discharge. encouraged to rethink discharge and remain in the hospital for more time to stabilize on medications. otherwise was planning to discharge tomorrow. 10/23: Agitated after being told he would not be discharged today due to not being stabilized psychiatrically. Offered 3 day notice; pt declined to sign. Patient became angry, gritting his teeth and yelling. Patient shouting at T/W and social security benefits interviewer stating, You're a piece of shit liar! Both of you are pieces of shit who lie! Pt stood up, punched door of sensory room and proceeded to slam door shut behind him. Pt went up to social security benefits interviewer as she was walking down the gaines, swung him arm and hit her clipboard. Staff intervened. Pt went to room. Ativan 2mg PO, Benadryl 50mg PO and Haldol 5mg PO were ordered; pt choose to take Ativan and Benadryl but declined Haldol. Risperidal increased to 5mg PO bedtime. Clozaril increased to 175mg PO bedtime. Awaiting medication list from [place] pharmacy. 10/24: Calmer today. Apologized for behavior yesterday. Patient reports he spoke to his [facility] mental health case manager and would like to go to respite after discharge. Pt stated he would like to move from his apartment d/t not wanting to live next door to someone who has cancer and won't help themselves. I felt ill being next to him. It might have been my OCD, I don't know . denies side effects from increase in medication. per nursing, slept 8 hours. ? if patient is cheeking medications; will start mouth checks with medications administration. Plan to continue to increase clozaril. 10/25 continue tx. 10/26 continue tx. Reason for continued inpatient stay Substantial Risk for: inability to function Time Spent With Patient Time: Total time managing care of this patient today ____ minutes.
[2024-10-27 08:47] VITALS: BP 119/68; PULSE 84; RESP 12; TEMP 36.9; O2SAT 95
[2024-10-27] MEDS: Cyanocobalamin (Vitamin B-12) 500 MCG TABLET PO (08:47)
[2024-10-27] MEDS: Thiamine HCL 100 MG TABLET PO (08:47)
--- NOTE | 2024-10-27 09:42 | HO.PSYCHPN ---
Subjective Subjective Date of Service: 10/27/24 Reason For Visit: Depression/ Failure to Thrive Subjective Notes: Conditional Voluntary Interim History: Active on unit. Pt discussed his friendship with his neighbor prior to being diagnosed with cancer. pt stated, my neighbor and I were friends and I would cook for him on Sundays and he would teach me how to play the guitar. After he told me he had cancer, everything changed. I want to apologize to him but I want to move and find a new apartment . pt reports feeling very anxious because he wants to be discharged. pt stated, I think I'm just going to go back to my apartment until I find a new one . denies SI/HI/VH/AH. Focused on discharge. Clozaril increased to 200mg PO bedtime. DC'd ZHAO restrictions. per nursing, slept 8 hours. Medication Compliance: Yes Side effects from medications: No Attending Groups: No Mental Status Exam Mental Status Exam Narrative: Pt is alert and oriented; behavior is cooperative, calm; dressed in casual attire; mood is described as anxious ; eye contact appropriate; Speech is normal rate, volume and not pressured; thought process is organized, some paranoia regarding neighbor; Thought content is on discharge; denies SI/HI/VH/AH. Diagnostics Vital Signs (24Hr): Vital Signs - 24 hr 10/26/24 20:10 10/27/24 08:47 Temperature 98.2 F 98.4 F Pulse Rate 95 84 Respiratory Rate 18 12 Blood Pressure 110/70 119/68 Pulse Oximetry 96 95 Oxygen Delivery Method Room Air Room Air BMI result Body Mass Index 19.2 Labs 10/20/24 08:13 10/10/24 16:49 Medications Medications Current Medications Acetaminophen (Acetaminophen 325 Mg Tablet) 650 mg PO Q6H PRN PRN Reason: Headache/Pain, Scale 1-10 Al Hydroxide/Mg Hydroxide (Magnesium Hydrox/Alum Hydrox 30 Ml Oral.Susp) 30 ml PO Q6H PRN PRN Reason: Heartburn/Nausea Chlorpromazine HCl (Chlorpromazine Hcl 25 Mg Tablet) 25 mg PO Q6H PRN PRN Reason: agitation Clozapine 100 mg/ Clozapine 75 (mg) 175 mg PO BEDTIME INDRA Last Admin: 10/26/24 20:17 Dose: 175 mg Cyanocobalamin (Cyanocobalamin (Vitamin B-12) 500 Mcg Tablet) 500 mcg PO DAILY INDAR Last Admin: 10/27/24 08:47 Dose: 500 mcg Gabapentin (Gabapentin 100 Mg Capsule) 100 mg PO DAILY PRN PRN Reason: Anxiety Last Admin: 10/15/24 18:04 Dose: 100 mg Hydroxyzine HCl (Hydroxyzine Hcl 25 Mg Tablet) 25 mg PO Q6H PRN PRN Reason: mild anxiety Last Admin: 10/15/24 05:51 Dose: 25 mg Magnesium Hydroxide (Milk Of Magnesia 30 Ml Oral.Susp) 30 ml PO DAILY PRN PRN Reason: Constipation Multi-Ingred Cream/Lotion/Oil/Oint (Mineral Oil/Petrolatum,White 106 Gm Tube) 1 appl TOPICAL BID PRN; Protocol PRN Reason: Dry Skin Last Admin: 10/24/24 13:05 Dose: 1 appl Nicotine Polacrilex (Nicotine Polacrilex 2 Mg Gum) 4 mg BUCCAL Q2H PRN PRN Reason: Nicotine Cravings Prazosin HCl (Prazosin Hcl 1 Mg Capsule) 1 mg PO BEDTIME INDRA; Protocol Last Admin: 10/26/24 20:17 Dose: 1 mg Risperidone 3 mg/ Risperidone (2 mg) 5 mg PO BEDTIME INDRA Last Admin: 10/26/24 20:16 Dose: 5 mg Thiamine HCl (Thiamine Hcl 100 Mg Tablet) 100 mg PO DAILY INDRA Last Admin: 10/27/24 08:47 Dose: 100 mg Trazodone HCl (Trazodone Hcl 50 Mg Tablet) 50 mg PO BEDTIME MRX1 PRN PRN Reason: Insomnia Allergies Allergies Allergy/AdvReac Type Severity Reaction Status Date / Time aripiprazole [From ABILIFY] Allergy Severe TONGUE Verified 10/08/24 14:03 SWELLS, NAUSEA/VOMITING olanzapine [From ZYPREXA] AdvReac Unknown INVOLUNTARY Verified 10/08/24 14:03 SPASMS lurasidone AdvReac Unknown Verified 10/24/24 15:28 Penicillins AdvReac Unknown Verified 10/24/24 15:28 sertraline AdvReac Unknown Verified 10/24/24 15:28 From ZOLOFT AdvReac Unknown KEY Uncoded 10/08/24 14:03 Assessment & Plan Assessment & Plan (1) Schizoaffective disorder: Status: Acute Code(s): F25.9 - Schizoaffective disorder, unspecified Plan Patient is a 38-year-old male with history of schizophrenia who presented to [facility] ER d/t paranoid behaviors secondary to medication non-compliance. Plan: CV 15 minute safety checks Continues home medications Restart clozapine 25mg PO daily with plan to increase obtain collateral dietitian consult encourage groups discharge planning 10/11/2024: No changes to current treatment plan. clozapine just restarted yesterday. Titrate clozapine as tolerated. Reports he will get lab work done tomorrow 10/12/24:Clozapine just started, check for cheeking 10/13: Increase Clozapine to 50 mg HS 10/14: Prazosin 1 mg HS-trial for nightmare mgt. Glycopyrrolate 0.5 mg bid trial for sialorrhea/resulting spitting in milieu. 10/15: Active on unit, keeping to self. Guarded. Patient reports feeling okay today; pt states he is not really worried about my neighbor anymore. I'm thinking about moving at some point but I plan on going back to my apartment when I leave here . denies SI/HI/VH/AH. denies excess salivating today; discussed increasing clozaril, pt agreed. Clozaril increased to 75mg PO bedtime. 10/16: calm, cooperative, pleasant. denies s/e from clozail 75 last night. increase to clozaril 100 tonight. 10/17: Active on unit. keeping to self. medication compliant. Patient reports feeling good but a little drowsy ; discussed medications.denies SI/HI/VH/AH. Change risperidal to bedtime. Decrease ativan to 0.5mg PO BID; with plan to taper off prior to discharge. Increase Clozaril to 125mg PO bedtime. 10/18: Active on unit. keeping to self. medication compliant. Patient reports feeling alright today; pt stated, I'm thinking about going back to my apartment. I need to get a job so I can buy myself a bike . future oriented. denies SI/HI/VH/AH. denies any side effects from medication adjustments. Continue current tx plan. 10/19: Patient continues to report feeling alright today; labs ordered for tomorrow morning. future oriented. denies SI/HI/VH/AH. per nursing, slept 8 hours last night. no paranoid or delusional statements made during assessment. Continue current tx plan. 10/20: Irritable. per nursing, frequency asking for items but then throws it away and ask for same item again. Showered. medication compliant. discussed increasing clozaril; pt agreed. Dose increased to 150mg PO bedtime. focused on wanting to pay his bill via cellphone. denies SI/HI/VH/AH. 10/21: Active on unit. keeping to self. calmer today. Patient denies side effects from increase in clozaril. pt stated, I'm doing good. I'm not worried about going home. I wish I wasn't so mean to my neighbor . Pt discussed apologizing to neighbor when he returns home. He reports sleeping well last night. denies hypersalivation; requesting Robinal to be DC'd. denies SI/HI/VH/AH. DC Robinal. 10/22: some paranoia re amaury lymphoma from his neighbor. musing on personal failings. anxious and ambivalent re discharge. encouraged to rethink discharge and remain in the hospital for more time to stabilize on medications. otherwise was planning to discharge tomorrow. 10/23: Agitated after being told he would not be discharged today due to not being stabilized psychiatrically. Offered 3 day notice; pt declined to sign. Patient became angry, gritting his teeth and yelling. Patient shouting at T/W and social insurance administrator stating, You're a piece of shit liar! Both of you are pieces of shit who lie! Pt stood up, punched door of sensory room and proceeded to slam door shut behind him. Pt went up to social insurance administrator as she was walking down the gaines, swung him arm and hit her clipboard. Staff intervened. Pt went to room. Ativan 2mg PO, Benadryl 50mg PO and Haldol 5mg PO were ordered; pt choose to take Ativan and Benadryl but declined Haldol. Risperidal increased to 5mg PO bedtime. Clozaril increased to 175mg PO bedtime. Awaiting medication list from [place] pharmacy. 10/24: Calmer today. Apologized for behavior yesterday. Patient reports he spoke to his [facility] nurse case management and would like to go to respite after discharge. Pt stated he would like to move from his apartment d/t not wanting to live next door to someone who has cancer and won't help themselves. I felt ill being next to him. It might have been my OCD, I don't know . denies side effects from increase in medication. per nursing, slept 8 hours. ? if patient is cheeking medications; will start mouth checks with medications administration. Plan to continue to increase clozaril. 10/25 continue tx. 10/27: Active on unit. Pt discussed his friendship with his neighbor prior to being diagnosed with cancer. pt stated, my neighbor and I were friends and I would cook for him on Sundays and he would teach me how to play the guitar. After he told me he had cancer, everything changed. I want to apologize to him but I want to move and find a new apartment . pt reports feeling very anxious because he wants to be discharged. pt stated, I think I'm just going to go back to my apartment until I find a new one . denies SI/HI/VH/AH. Focused on discharge. Clozaril increased to 200mg PO bedtime. DC'd ZHAO restrictions. per nursing, slept 8 hours. Patient educated on: diagnosis and medication risk/benefits Reason for continued inpatient stay Substantial Risk for: med/psych decompensation Time Spent With Patient Time: Total time managing care of this patient today _20___ minutes.
[2024-10-27] MEDS: hydrOXYzine HCL 25 MG TABLET PO (17:41)
[2024-10-27 19:55] VITALS: BP 123/70; PULSE 86; RESP 12; TEMP 36.3; O2SAT 96
[2024-10-27] MEDS: RISPERIDONE 5 MG PO (20:39)
[2024-10-27] MEDS: Prazosin HCL 1 MG CAPSULE PO (20:40)
[2024-10-27] MEDS: cloZAPine 100 MG TABLET 200 MG PO (20:40)
[2024-10-28 08:07] VITALS: BP 127/79; PULSE 109; RESP 18; TEMP 36.6; O2SAT 96
--- NOTE | 2024-10-28 08:59 | P.PNPSI_ITS ---
Subjective Subjective Date of Service: 10/28/24 Reason For Visit: Depression/ Failure to Thrive Subjective Notes: Conditional Voluntary Interim History: Pt continues to report feeling anxious; denies any side effects from increase in clozaril. denies SI/HI/VH/AH. Focused on discharge and returning to his apartment. calm. continue current tx plan. Medication Compliance: Yes Side effects from medications: No Attending Groups: No Mental Status Exam Mental Status Exam Narrative: Pt is alert and oriented; behavior is cooperative, calm; dressed in casual attire; mood is described as anxious ; eye contact appropriate; Speech is normal rate, volume and not pressured; thought process is organized, some paranoia regarding neighbor; Thought content is on discharge; denies SI/HI/VH/AH. Diagnostics Vital Signs (24Hr): Vital Signs - 24 hr 10/27/24 19:55 10/28/24 08:07 Temperature 97.3 F 97.9 F Pulse Rate 86 109 H Respiratory Rate 12 18 Blood Pressure 123/70 127/79 Pulse Oximetry 96 96 Oxygen Delivery Method Room Air Room Air BMI result Body Mass Index 19.2 Labs 10/20/24 08:13 10/10/24 16:49 Medications Medications Current Medications Acetaminophen (Acetaminophen 325 Mg Tablet) 650 mg PO Q6H PRN PRN Reason: Headache/Pain, Scale 1-10 Al Hydroxide/Mg Hydroxide (Magnesium Hydrox/Alum Hydrox 30 Ml Oral.Susp) 30 ml PO Q6H PRN PRN Reason: Heartburn/Nausea Chlorpromazine HCl (Chlorpromazine Hcl 25 Mg Tablet) 25 mg PO Q6H PRN PRN Reason: agitation Clozapine (Clozapine 100 Mg Tablet) 200 mg PO BEDTIME INDRA Last Admin: 10/27/24 20:40 Dose: 200 mg Cyanocobalamin (Cyanocobalamin (Vitamin B-12) 500 Mcg Tablet) 500 mcg PO DAILY INDRA Last Admin: 10/27/24 08:47 Dose: 500 mcg Gabapentin (Gabapentin 100 Mg Capsule) 100 mg PO DAILY PRN PRN Reason: Anxiety Last Admin: 10/15/24 18:04 Dose: 100 mg Hydroxyzine HCl (Hydroxyzine Hcl 25 Mg Tablet) 25 mg PO Q6H PRN PRN Reason: mild anxiety Last Admin: 10/27/24 17:41 Dose: 25 mg Magnesium Hydroxide (Milk Of Magnesia 30 Ml Oral.Susp) 30 ml PO DAILY PRN PRN Reason: Constipation Multi-Ingred Cream/Lotion/Oil/Oint (Mineral Oil/Petrolatum,White 106 Gm Tube) 1 appl TOPICAL BID PRN; Protocol PRN Reason: Dry Skin Last Admin: 10/24/24 13:05 Dose: 1 appl Nicotine Polacrilex (Nicotine Polacrilex 2 Mg Gum) 4 mg BUCCAL Q2H PRN PRN Reason: Nicotine Cravings Prazosin HCl (Prazosin Hcl 1 Mg Capsule) 1 mg PO BEDTIME INDRA; Protocol Last Admin: 10/27/24 20:40 Dose: 1 mg Risperidone 3 mg/ Risperidone (2 mg) 5 mg PO BEDTIME INDRA Last Admin: 10/27/24 20:39 Dose: 5 mg Thiamine HCl (Thiamine Hcl 100 Mg Tablet) 100 mg PO DAILY INDRA Last Admin: 10/27/24 08:47 Dose: 100 mg Trazodone HCl (Trazodone Hcl 50 Mg Tablet) 50 mg PO BEDTIME MRX1 PRN PRN Reason: Insomnia Allergies Allergies Allergy/AdvReac Type Severity Reaction Status Date / Time aripiprazole [From ABILIFY] Allergy Severe TONGUE Verified 10/08/24 14:03 SWELLS, NAUSEA/VOMITING olanzapine [From ZYPREXA] AdvReac Unknown INVOLUNTARY Verified 10/08/24 14:03 SPASMS lurasidone AdvReac Unknown Verified 10/24/24 15:28 Penicillins AdvReac Unknown Verified 10/24/24 15:28 sertraline AdvReac Unknown Verified 10/24/24 15:28 From ZOLOFT AdvReac Unknown KEY Uncoded 10/08/24 14:03 Assessment & Plan Assessment & Plan (1) Schizoaffective disorder: Status: Acute Code(s): F25.9 - Schizoaffective disorder, unspecified Plan Patient is a 38-year-old male with history of schizophrenia who presented to [facility] ER d/t paranoid behaviors secondary to medication non-compliance. Plan: CV 15 minute safety checks Continues home medications Restart clozapine 25mg PO daily with plan to increase obtain collateral dietitian consult encourage groups discharge planning 10/11/2024: No changes to current treatment plan. clozapine just restarted yesterday. Titrate clozapine as tolerated. Reports he will get lab work done tomorrow 10/12/24:Clozapine just started, check for cheeking 10/13: Increase Clozapine to 50 mg HS 10/14: Prazosin 1 mg HS-trial for nightmare mgt. Glycopyrrolate 0.5 mg bid trial for sialorrhea/resulting spitting in milieu. 10/15: Active on unit, keeping to self. Guarded. Patient reports feeling okay today; pt states he is not really worried about my neighbor anymore. I'm thinking about moving at some point but I plan on going back to my apartment when I leave here . denies SI/HI/VH/AH. denies excess salivating today; discussed increasing clozaril, pt agreed. Clozaril increased to 75mg PO bedtime. 10/16: calm, cooperative, pleasant. denies s/e from clozail 75 last night. increase to clozaril 100 tonight. 10/17: Active on unit. keeping to self. medication compliant. Patient reports feeling good but a little drowsy ; discussed medications.denies SI/HI/VH/AH. Change risperidal to bedtime. Decrease ativan to 0.5mg PO BID; with plan to taper off prior to discharge. Increase Clozaril to 125mg PO bedtime. 10/18: Active on unit. keeping to self. medication compliant. Patient reports feeling alright today; pt stated, I'm thinking about going back to my apartment. I need to get a job so I can buy myself a bike . future oriented. denies SI/HI/VH/AH. denies any side effects from medication adjustments. Continue current tx plan. 10/19: Patient continues to report feeling alright today; labs ordered for tomorrow morning. future oriented. denies SI/HI/VH/AH. per nursing, slept 8 hours last night. no paranoid or delusional statements made during assessment. Continue current tx plan. 10/20: Irritable. per nursing, frequency asking for items but then throws it away and ask for same item again. Showered. medication compliant. discussed increasing clozaril; pt agreed. Dose increased to 150mg PO bedtime. focused on wanting to pay his bill via cellphone. denies SI/HI/VH/AH. 10/21: Active on unit. keeping to self. calmer today. Patient denies side effects from increase in clozaril. pt stated, I'm doing good. I'm not worried about going home. I wish I wasn't so mean to my neighbor . Pt discussed apologizing to neighbor when he returns home. He reports sleeping well last night. denies hypersalivation; requesting Robinal to be DC'd. denies SI/HI/VH/AH. DC Robinal. 10/22: some paranoia re amuary lymphoma from his neighbor. musing on personal failings. anxious and ambivalent re discharge. encouraged to rethink discharge and remain in the hospital for more time to stabilize on medications. otherwise was planning to discharge tomorrow. 10/23: Agitated after being told he would not be discharged today due to not being stabilized psychiatrically. Offered 3 day notice; pt declined to sign. Patient became angry, gritting his teeth and yelling. Patient shouting at T/W and sr. social media & mobile manager stating, You're a piece of shit liar! Both of you are pieces of shit who lie! Pt stood up, punched door of sensory room and proceeded to slam door shut behind him. Pt went up to sr. social media & mobile manager as she was walking down the gaines, swung him arm and hit her clipboard. Staff intervened. Pt went to room. Ativan 2mg PO, Benadryl 50mg PO and Haldol 5mg PO were ordered; pt choose to take Ativan and Benadryl but declined Haldol. Risperidal increased to 5mg PO bedtime. Clozaril increased to 175mg PO bedtime. Awaiting medication list from [place] pharmacy. 10/24: Calmer today. Apologized for behavior yesterday. Patient reports he spoke to his [facility] caseworker and would like to go to respite after discharge. Pt stated he would like to move from his apartment d/t not wanting to live next door to someone who has cancer and won't help themselves. I felt ill being next to him. It might have been my OCD, I don't know . denies side effects from increase in medication. per nursing, slept 8 hours. ? if patient is cheeking medications; will start mouth checks with medications administration. Plan to continue to increase clozaril. 10/25 continue tx. 10/27: Active on unit. Pt discussed his friendship with his neighbor prior to being diagnosed with cancer. pt stated, my neighbor and I were friends and I would cook for him on Sundays and he would teach me how to play the guitar. After he told me he had cancer, everything changed. I want to apologize to him but I want to move and find a new apartment . pt reports feeling very anxious because he wants to be discharged. pt stated, I think I'm just going to go back to my apartment until I find a new one . denies SI/HI/VH/AH. Focused on discharge. Clozaril increased to 200mg PO bedtime. DC'd ZHAO restrictions. per nursing, slept 8 hours. 10/28: Pt continues to report feeling anxious; denies any side effects from increase in clozaril. denies SI/HI/VH/AH. Focused on discharge and returning to his apartment. calm. continue current tx plan. Patient educated on: diagnosis and medication risk/benefits Reason for continued inpatient stay Substantial Risk for: med/psych decompensation Time Spent With Patient Time: Total time managing care of this patient today _20___ minutes.
[2024-10-28] MEDS: Cyanocobalamin (Vitamin B-12) 500 MCG TABLET PO (09:43)
[2024-10-28] MEDS: Thiamine HCL 100 MG TABLET PO (09:43)
[2024-10-28 20:15] VITALS: BP 121/57; PULSE 91; RESP 16; TEMP 37.3; O2SAT 96
[2024-10-28] MEDS: cloZAPine 100 MG TABLET 200 MG PO (20:22)
[2024-10-28] MEDS: Prazosin HCL 1 MG CAPSULE PO (20:22)
[2024-10-28] MEDS: RISPERIDONE 5 MG PO (20:22)
[2024-10-29 08:00] VITALS: BP 120/56; PULSE 96; RESP 16; TEMP 36.8; O2SAT 98
[2024-10-29 08:45] LABS: Neut%MD 54.2 %; Neutrophils Absolute Auto 3.8 x10*3/uL (2.0-8.3)
--- NOTE | 2024-10-29 10:13 | P.PNPSI_ITS ---
Subjective Subjective Date of Service: 10/29/24 Reason For Visit: Depression/ Failure to Thrive Subjective Notes: Conditional Voluntary Interim History: Active on unit. Patient reports feeling good today; pt stated, I'm looking forward to leaving. I'm going to keep taking my meds. I think I'm just going to keep to myself when I get back to my apartment . pt did not make any paranoid statements during assessment. Per nursing, slept 8 hours last night. denies SI/HI/VH/AH. Medication Compliance: Yes Side effects from medications: No Attending Groups: No Mental Status Exam Mental Status Exam Narrative: Pt is alert and oriented; behavior is cooperative, calm; dressed in casual attire; mood is described as good ; eye contact appropriate; Speech is normal rate, volume and not pressured; thought process is organized; Thought content is on discharge; denies SI/HI/VH/AH. Diagnostics Vital Signs (24Hr): Vital Signs - 24 hr 10/28/24 20:15 10/29/24 08:00 Temperature 99.1 F 98.2 F Pulse Rate 91 96 Respiratory Rate 16 16 Blood Pressure 121/57 L 120/56 L Pulse Oximetry 96 98 Oxygen Delivery Method Room Air Room Air BMI result Body Mass Index 19.2 Labs 10/20/24 08:13 10/10/24 16:49 Labs: Laboratory Results - last 48 hr 10/29/24 07:56 Absolute Neuts (auto) 3.8 Medications Medications Current Medications Acetaminophen (Acetaminophen 325 Mg Tablet) 650 mg PO Q6H PRN PRN Reason: Headache/Pain, Scale 1-10 Al Hydroxide/Mg Hydroxide (Magnesium Hydrox/Alum Hydrox 30 Ml Oral.Susp) 30 ml PO Q6H PRN PRN Reason: Heartburn/Nausea Chlorpromazine HCl (Chlorpromazine Hcl 25 Mg Tablet) 25 mg PO Q6H PRN PRN Reason: agitation Clozapine (Clozapine 100 Mg Tablet) 200 mg PO BEDTIME INDRA Last Admin: 10/28/24 20:22 Dose: 200 mg Cyanocobalamin (Cyanocobalamin (Vitamin B-12) 500 Mcg Tablet) 500 mcg PO DAILY INDRA Last Admin: 10/29/24 09:08 Dose: Not Given Gabapentin (Gabapentin 100 Mg Capsule) 100 mg PO DAILY PRN PRN Reason: Anxiety Last Admin: 10/15/24 18:04 Dose: 100 mg Hydroxyzine HCl (Hydroxyzine Hcl 25 Mg Tablet) 25 mg PO Q6H PRN PRN Reason: mild anxiety Last Admin: 10/27/24 17:41 Dose: 25 mg Magnesium Hydroxide (Milk Of Magnesia 30 Ml Oral.Susp) 30 ml PO DAILY PRN PRN Reason: Constipation Multi-Ingred Cream/Lotion/Oil/Oint (Mineral Oil/Petrolatum,White 106 Gm Tube) 1 appl TOPICAL BID PRN; Protocol PRN Reason: Dry Skin Last Admin: 10/24/24 13:05 Dose: 1 appl Nicotine Polacrilex (Nicotine Polacrilex 2 Mg Gum) 4 mg BUCCAL Q2H PRN PRN Reason: Nicotine Cravings Prazosin HCl (Prazosin Hcl 1 Mg Capsule) 1 mg PO BEDTIME INDRA; Protocol Last Admin: 10/28/24 20:22 Dose: 1 mg Risperidone 3 mg/ Risperidone (2 mg) 5 mg PO BEDTIME INDRA Last Admin: 10/28/24 20:22 Dose: 5 mg Thiamine HCl (Thiamine Hcl 100 Mg Tablet) 100 mg PO DAILY INDRA Last Admin: 10/29/24 09:08 Dose: Not Given Trazodone HCl (Trazodone Hcl 50 Mg Tablet) 50 mg PO BEDTIME MRX1 PRN PRN Reason: Insomnia Allergies Allergies Allergy/AdvReac Type Severity Reaction Status Date / Time aripiprazole [From ABILIFY] Allergy Severe TONGUE Verified 10/08/24 14:03 SWELLS, NAUSEA/VOMITING olanzapine [From ZYPREXA] AdvReac Unknown INVOLUNTARY Verified 10/08/24 14:03 SPASMS lurasidone AdvReac Unknown Verified 10/24/24 15:28 Penicillins AdvReac Unknown Verified 10/24/24 15:28 sertraline AdvReac Unknown Verified 10/24/24 15:28 From ZOLOFT AdvReac Unknown KEY Uncoded 10/08/24 14:03 Assessment & Plan Assessment & Plan (1) Schizoaffective disorder: Status: Acute Code(s): F25.9 - Schizoaffective disorder, unspecified Plan Patient is a 38-year-old male with history of schizophrenia who presented to [facility] d/t paranoid behaviors secondary to medication non-compliance. Plan: CV 15 minute safety checks Continues home medications Restart clozapine 25mg PO daily with plan to increase obtain collateral dietitian consult encourage groups discharge planning 10/11/2024: No changes to current treatment plan. clozapine just restarted yesterday. Titrate clozapine as tolerated. Reports he will get lab work done tomorrow 10/12/24:Clozapine just started, check for cheeking 10/13: Increase Clozapine to 50 mg HS 10/14: Prazosin 1 mg HS-trial for nightmare mgt. Glycopyrrolate 0.5 mg bid trial for sialorrhea/resulting spitting in milieu. 10/15: Active on unit, keeping to self. Guarded. Patient reports feeling okay today; pt states he is not really worried about my neighbor anymore. I'm thinking about moving at some point but I plan on going back to my apartment when I leave here . denies SI/HI/VH/AH. denies excess salivating today; discussed increasing clozaril, pt agreed. Clozaril increased to 75mg PO bedtime. 10/16: calm, cooperative, pleasant. denies s/e from clozail 75 last night. increase to clozaril 100 tonight. 10/17: Active on unit. keeping to self. medication compliant. Patient reports feeling good but a little drowsy ; discussed medications.denies SI/HI/VH/AH. Change risperidal to bedtime. Decrease ativan to 0.5mg PO BID; with plan to taper off prior to discharge. Increase Clozaril to 125mg PO bedtime. 10/18: Active on unit. keeping to self. medication compliant. Patient reports feeling alright today; pt stated, I'm thinking about going back to my apartment. I need to get a job so I can buy myself a bike . future oriented. denies SI/HI/VH/AH. denies any side effects from medication adjustments. Continue current tx plan. 10/19: Patient continues to report feeling alright today; labs ordered for tomorrow morning. future oriented. denies SI/HI/VH/AH. per nursing, slept 8 hours last night. no paranoid or delusional statements made during assessment. Continue current tx plan. 10/20: Irritable. per nursing, frequency asking for items but then throws it away and ask for same item again. Showered. medication compliant. discussed increasing clozaril; pt agreed. Dose increased to 150mg PO bedtime. focused on wanting to pay his bill via cellphone. denies SI/HI/VH/AH. 10/21: Active on unit. keeping to self. calmer today. Patient denies side effects from increase in clozaril. pt stated, I'm doing good. I'm not worried about going home. I wish I wasn't so mean to my neighbor . Pt discussed apologizing to neighbor when he returns home. He reports sleeping well last night. denies hypersalivation; requesting Robinal to be DC'd. denies SI/HI/VH/AH. DC Robinal. 10/22: some paranoia re amaury lymphoma from his neighbor. musing on personal failings. anxious and ambivalent re discharge. encouraged to rethink discharge and remain in the hospital for more time to stabilize on medications. otherwise was planning to discharge tomorrow. 10/23: Agitated after being told he would not be discharged today due to not being stabilized psychiatrically. Offered 3 day notice; pt declined to sign. Patient became angry, gritting his teeth and yelling. Patient shouting at T/W and social media content manager stating, You're a piece of shit liar! Both of you are pieces of shit who lie! Pt stood up, punched door of sensory room and proceeded to slam door shut behind him. Pt went up to social media content manager as she was walking down the gaines, swung him arm and hit her clipboard. Staff intervened. Pt went to room. Ativan 2mg PO, Benadryl 50mg PO and Haldol 5mg PO were ordered; pt choose to take Ativan and Benadryl but declined Haldol. Risperidal increased to 5mg PO bedtime. Clozaril increased to 175mg PO bedtime. Awaiting medication list from [place] pharmacy. 10/24: Calmer today. Apologized for behavior yesterday. Patient reports he spoke to his [facility] registered nurse hh case manager and would like to go to respite after discharge. Pt stated he would like to move from his apartment d/t not wanting to live next door to someone who has cancer and won't help themselves. I felt ill being next to him. It might have been my OCD, I don't know . denies side effects from increase in medication. per nursing, slept 8 hours. ? if patient is cheeking medications; will start mouth checks with medications administration. Plan to continue to increase clozaril. 10/25 continue tx. 10/27: Active on unit. Pt discussed his friendship with his neighbor prior to being diagnosed with cancer. pt stated, my neighbor and I were friends and I would cook for him on Sundays and he would teach me how to play the guitar. After he told me he had cancer, everything changed. I want to apologize to him but I want to move and find a new apartment . pt reports feeling very anxious because he wants to be discharged. pt stated, I think I'm just going to go back to my apartment until I find a new one . denies SI/HI/VH/AH. Focused on discharge. Clozaril increased to 200mg PO bedtime. DC'd ZHAO restrictions. per nursing, slept 8 hours. 10/28: Pt continues to report feeling anxious; denies any side effects from increase in clozaril. denies SI/HI/VH/AH. Focused on discharge and returning to his apartment. calm. continue current tx plan. 10/29: Active on unit. Patient reports feeling good today; pt stated, I'm looking forward to leaving. I'm going to keep taking my meds. I think I'm just going to keep to myself when I get back to my apartment . pt did not make any paranoid statements during assessment. Per nursing, slept 8 hours last night. denies SI/HI/VH/AH. Patient educated on: diagnosis and medication risk/benefits Reason for continued inpatient stay Substantial Risk for: stable for discharge Time Spent With Patient Time: Total time managing care of this patient today _20___ minutes.
[2024-10-29 20:15] VITALS: BP 123/60; PULSE 95; RESP 18; TEMP 37.1; O2SAT 97
[2024-10-29] MEDS: RISPERIDONE 5 MG PO (20:24)
[2024-10-29] MEDS: cloZAPine 100 MG TABLET 200 MG PO (20:24)
[2024-10-29] MEDS: Prazosin HCL 1 MG CAPSULE PO (20:24)
[2024-10-30 08:00] VITALS: BP 112/63; PULSE 90; RESP 16; TEMP 36.4; O2SAT 96
--- NOTE | 2024-10-30 12:45 | P.DS_ITS ---
DS: Providers Provider Date of Service: 10/30/24 Date of admission: 10/09/24 18:09 Date of discharge: 10/30/24 Primary care physician: Unknown Physician Admitting clinician: Devi Bates Attending physician on admission: Mario Orozco Attending physician on discharge: Mario Orozco Discharging clinician: Devi Bates DS: Diagnosis Discharge Diagnosis (1) Schizoaffective disorder: Status: Acute DS: Medications Discharge Medications Home Medications: Home Medications ?Medication ?Instructions ?Recorded ?Confirmed B12 500 mcg PO DAILY 10/10/24 10/10/24 thiamine HCl (vitamin B1) 100 mg 100 mg PO DAILY 10/10/24 10/10/24 tablet Previous Rx's ?Medication ?Instructions ?Recorded clozapine 200 mg tablet 200 mg PO BEDTIME 30 days #30 tabs 10/29/24 gabapentin 100 mg capsule 100 mg PO DAILY PRN Anxiety 30 10/29/24 days #30 caps hydroxyzine HCl 50 mg tablet 50 mg PO BEDTIME PRN Insomnia 30 10/29/24 days #30 tabs prazosin 1 mg capsule 1 mg PO BEDTIME 30 days #30 caps 10/29/24 risperidone 4 mg tablet 4 mg PO BEDTIME 30 days #30 tabs 10/29/24 Mental Status Exam Mental Status Exam Narrative: Pt is alert and oriented; behavior is cooperative, calm; dressed in casual attire; mood is described as good ; eye contact appropriate; Speech is normal rate, volume and not pressured; thought process is organized; Thought content is on discharge; denies SI/HI/VH/AH. Data Data Completed and Pending Completed studies during hospitalization [Text1]: 10/29/24 07:56 Absolute Neuts (auto) 3.8 DS: Summary Hospital Course Hospital Course: Patient is a 38-year-old male with history of schizoaffective d/o who presented [place] [facility] d/t paranoid behaviors secondary to medication non-compliance. Per crisis report, patient was assessed by [facility] crisis due to presenting with paranoid behaviors at his day program. Patient was anxious, shaking and hiding in the bathroom with the lights off for most of the day. Patient has been noncompliant with his prescribed medications for almost a month and has been refusing and throwing out food for a month due to his paranoid delusions. Patient's brother reports that he has lost approximately 30lb in the last month. Patient has been verbally aggressive towards 1 neighbor and throwing toilet paper at the neighbor's door as the neighbors diagnosed with cancer and patient believes the neighbor will spread the cancer to him. denies SI/HI; He also denies experiencing any auditory or visual hallucinations. Patient's brother reports he stopped taking his medications about a month ago after losing his job. utox negative. During admission assessment, patient presents alert and oriented x3. Anxious but cooperative. Fidgeting in chair. Standing up multiple times to look outside of unit office door. Paranoid. Patient stated, [facility] came to my house. I don't know why they came. I'm not really taking my meds but I'll take them here. I had to throw them away because my whole apartment is dirty so I wasn't eating . Patient reports he is worried about getting cancer from his neighbor . Patient was observed continuously removing and putting back on surgical facemask during the interview. Patient reports he would like to be restarted on his medications. denies SI/HI/VH/AH. Plan: CV 15 minute safety checks Continues home medications Restart clozapine 25mg PO daily with plan to increase obtain collateral dietitian consult encourage groups discharge planning No changes to current treatment plan. clozapine just restarted yesterday. Titrate clozapine as tolerated. Reports he will get lab work done tomorrow Clozapine just started, check for cheeking Increase Clozapine to 50 mg HS Prazosin 1 mg HS-trial for nightmare mgt. Glycopyrrolate 0.5 mg bid trial for sialorrhea/resulting spitting in milieu. Active on unit, keeping to self. Guarded. Patient reports feeling okay today; pt states he is not really worried about my neighbor anymore. I'm thinking about moving at some point but I plan on going back to my apartment when I leave here . denies SI/HI/VH/AH. denies excess salivating today; discussed increasing clozaril, pt agreed. Clozaril increased to 75mg PO bedtime. calm, cooperative, pleasant. denies s/e from clozail 75 last night. increase to clozaril 100 tonight. Active on unit. keeping to self. medication compliant. Patient reports feeling good but a little drowsy ; discussed medications.denies SI/HI/VH/AH. Change risperidal to bedtime. Decrease ativan to 0.5mg PO BID; with plan to taper off prior to discharge. Increase Clozaril to 125mg PO bedtime. Active on unit. keeping to self. medication compliant. Patient reports feeling alright today; pt stated, I'm thinking about going back to my apartment. I need to get a job so I can buy myself a bike . future oriented. denies SI/HI/VH/AH. denies any side effects from medication adjustments. Continue current tx plan. Patient continues to report feeling alright today; labs ordered for tomorrow morning. future oriented. denies SI/HI/VH/AH. per nursing, slept 8 hours last night. no paranoid or delusional statements made during assessment. Continue current tx plan. Irritable. per nursing, frequency asking for items but then throws it away and ask for same item again. Showered. medication compliant. discussed increasing clozaril; pt agreed. Dose increased to 150mg PO bedtime. focused on wanting to pay his bill via cellphone. denies SI/HI/VH/AH. Active on unit. keeping to self. calmer today. Patient denies side effects from increase in clozaril. pt stated, I'm doing good. I'm not worried about going home. I wish I wasn't so mean to my neighbor . Pt discussed apologizing to neighbor when he returns home. He reports sleeping well last night. denies hypersalivation; requesting Robinal to be DC'd. denies SI/HI/VH/AH. DC Robinal. some paranoia re amaury lymphoma from his neighbor. musing on personal failings. anxious and ambivalent re discharge. encouraged to rethink discharge and remain in the hospital for more time to stabilize on medications. otherwise was planning to discharge tomorrow. Agitated after being told he would not be discharged today due to not being sta bilized psychiatrically. Offered 3 day notice; pt declined to sign. Patient became angry, gritting his teeth and yelling. Patient shouting at T/W and social media marketing analyst stating, You're a piece of shit liar! Both of you are pieces of shit who lie! Pt stood up, punched door of sensory room and proceeded to slam door shut behind him. Pt went up to social media marketing analyst as she was walking down the gaines, swung him arm and hit her clipboard. Staff intervened. Pt went to room. Ativan 2mg PO, Benadryl 50mg PO and Haldol 5mg PO were ordered; pt choose to take Ativan and Benadryl but declined Haldol. Risperidal increased to 5mg PO bedtime. Clozaril increased to 175mg PO bedtime. Awaiting medication list from [place] pharmacy. Calmer today. Apologized for behavior yesterday. Patient reports he spoke to his [facility] case coordinator and would like to go to respite after discharge. Pt stated he would like to move from his apartment d/t not wanting to live next door to someone who has cancer and won't help themselves. I felt ill being next to him. It might have been my OCD, I don't know . denies side effects from increase in medication. per nursing, slept 8 hours. ? if patient is cheeking medications; will start mouth checks with medications administration. Plan to continue to increase clozaril. Active on unit. Pt discussed his friendship with his neighbor prior to being diagnosed with cancer. pt stated, my neighbor and I were friends and I would cook for him on Sundays and he would teach me how to play the guitar. After he told me he had cancer, everything changed. I want to apologize to him but I want to move and find a new apartment . pt reports feeling very anxious because he wants to be discharged. pt stated, I think I'm just going to go back to my apartment until I find a new one . denies SI/HI/VH/AH. Focused on discharge. Clozaril increased to 200mg PO bedtime. DC'd ZHAO restrictions. per nursing, slept 8 hours. Pt continues to report feeling anxious; denies any side effects from increase in clozaril. denies SI/HI/VH/AH. Focused on discharge and returning to his apartment. calm. continue current tx plan. Active on unit. Patient reports feeling good today; pt stated, I'm looking forward to leaving. I'm going to keep taking my meds. I think I'm just going to keep to myself when I get back to my apartment . pt did not make any paranoid statements during assessment. Per nursing, slept 8 hours last night. denies SI/HI/VH/AH. Status at Discharge Cognitive/behavioral status at discharge: Patient has insight and demonstrates good judgment in terms of wanting to pursue treatment. Patient has a safety plan that includes presenting to the closest ER or calling 911 if feeling unsafe. Functional status at discharge: independent ambulation Overall status at discharge: patient is back to baseline Time Spent with Patient Time attestation: Total time managing care of this patient today _20___ minutes. Time spent: Less than 30 minutes Discharge Plan Discharge Anticipated Discharge Date/Time: 10/30/24 11:00 Patient Disposition: Home, Self-Care Discharge Diagnosis: Schizoaffective d/o Referrals: Therapy & Psychiatry [Other] - 1 Week (*Several voicemails have been left for the [place] clinic informing them that you need follow up appointments. Please follow up with the [place] to schedule aftercare appointments. ) [facility] [Provider Group] - 1 Week (10-22-24 [facility] was added to patients chart. Please call [phone] to schedule a follow up appt within 7-10 days of discharge. No release or PCP on file.) Discharge Medications: New prazosin 1 mg Capsule 1 mg PO BEDTIME 30 Days Qty: 30 0RF Protocol: Hold for SBP< HOLD for SBP < : 90 clozapine 200 mg tablet 200 mg PO BEDTIME 30 Days Qty: 30 0RF Continued B12 500 MCG 500 mcg PO DAILY thiamine HCl (vitamin B1) 100 mg Tablet 100 mg PO DAILY hydroxyzine HCl 50 mg Tablet 50 mg PO BEDTIME PRN (Reason: Insomnia) 30 Days Qty: 30 0RF gabapentin 100 mg Capsule 100 mg PO DAILY PRN (Reason: Anxiety) 30 Days Qty: 30 0RF Changed risperidone 4 mg Tablet 4 mg PO BEDTIME 30 Days Qty: 30 0RF Rx Instructions: ODT Discharge Orders: Discharge Order (Routine); Ordered 10/30/24 Ordered By: Devi Bates Diet: Regular diet Activity on Discharge: As tolerated Stand Alone Forms: Patient Portal Discharge page, Community Support Print Language: [place] Care Plan Goals: Maintain mood and safe behaviors Take medications as prescribed Practice coping skills Continue with outpatient providers and reach out to them as needed Health Concerns: Mood stability and behaviors Plan of Treatment: Follow up with your PCP, psychiatric provider and other outpatient providers regarding above concerns Take medications as prescribed Assessment: Patient has insight and demonstrates good judgment in terms of wanting to pursue treatment. Patient has a safety plan that includes presenting to the closest ER or calling 911 if feeling unsafe. Discharge Date/Time: 10/30/24 10:36
== END 2024-10-30 10:36 | disposition home or self-care (01) | DRG 885 ==
LOC: HO.ED 10-09 19:29 → HO.PADLT16 10-09 20:00
PROVIDERS: Admitting Provider Clinical Nurse Specialist Psychiatric/Mental Health, Adult; Emergency Provider Emergency Medicine; Responsible Provider Registered Nurse; Visit Provider Psychiatry & Neurology Psychiatry
DX: F25.9 Schizoaffective disorder, unspecified (principal); Z20.822 Contact with and (suspected) exposure to COVID-19; Z91.148 Patient's other noncompliance with medication regimen for other reason; Z79.899 Other long term (current) drug therapy
CPT/HCPCS: 36415; 76705; 80048; 80061; 80076; 80159; 80307; 81001; 81003; 82140; 82607; 82746; 83036; 83735; 84439; 84443; 85025; 85048; 85610; 87635; 93005; 99285; S9485

== ENCOUNTER → 2024-10-08 16:22 | Outpatient (BNV) | payer MEDICARE, MEDICAID, SELFPAY | PROVIDERS: Emergency Provider Emergency Medicine; Visit Provider Radiology Diagnostic Radiology | DX: R10.811 Right upper quadrant abdominal tenderness (principal) | CPT/HCPCS: 76705 ==

== ENCOUNTER → 2024-10-09 09:05 | Outpatient (BNV) | payer MEDICARE, MEDICAID, SELFPAY | PROVIDERS: Emergency Provider Emergency Medicine; Visit Provider Internal Medicine Cardiovascular Disease | DX: R00.1 Bradycardia, unspecified (principal) | CPT/HCPCS: 93010 ==

== ENCOUNTER → 2024-10-09 18:09 | Outpatient (BNV) | payer MEDICARE, MEDICAID, SELFPAY | PROVIDERS: Admitting Provider Clinical Nurse Specialist Psychiatric/Mental Health, Adult; Emergency Provider Emergency Medicine; Responsible Provider Registered Nurse; Visit Provider Psychiatry & Neurology Psychiatry | DX: F25.1 Schizoaffective disorder, depressive type (principal) | CPT/HCPCS: 90792; 99231; 99232 ==